=== PATIENT | male | born 1945 | race Caucasian/White ===

== ENCOUNTER → 2016-12-13 | Outpatient (CLI) | payer OTHER ==
[~2016-12-13] MED LIST: AMLO-110 PO; AMOX875T PO; COUGH SURUP PO; FAMO1TAB47 PO; LEVO50TA6 PO; MISCCAP80 PO; OMEP20TA PO; ONDA-63 PO; TPRSR100 PO; TRAM-10 PO
== END | disposition home or self-care (01) ==
LOC: C.LABSPEC 09:34
PROVIDERS: ATTEND Internal Medicine
DX: R19.7 Diarrhea, unspecified (principal)

== ENCOUNTER → 2017-04-10 | Outpatient (CLI) | payer OTHER ==
--- NOTE | 2017-04-10 12:14 | DIAGNOSTIC IMAGING REPORT ---
CHEST 2 VIEWS ROUTINE CLINICAL HISTORY: Hematemesis. COMPARISON STUDY: Chest CT April 29, 2016. FINDINGS: A right internal jugular [id number] is in place. There is no pneumothorax. Small bilateral pleural effusions are similar to CT of April 29, 2016. Abnormal right lower mediastinal contour is likely due to to the gastric pull-up following esophagectomy. Cardiomegaly is unchanged. There is no evidence of pulmonary edema. There is suspected mild right lower lung opacity. IMPRESSION: 1. No significant change in small bilateral pleural effusions. 2. Mild right lower lung opacity which may reflect atelectasis or an infectious process. Radiographic follow up is recommended. Electronically signed by: Latrell Tabares M.D. 04/10/2017 12:13 PM Dictated Date/Time: 04/10/2017 12:10 PM
[2017-04-10 13:41] LABS: BASO % 0.1 %; BASO ABS # 0.02 K/uL (0-0.2); COMPLETE YES; EOS % 0.6 %; HEMATOCRIT 41.4 % (42-52); IG% 0.4 %; LYMPH % 4.2 %; LYMPH ABS # 0.79 K/uL (1.2-3.4); MEAN CELL VOLUME 86.1 fL (80-100); MEAN CORPUSCULAR HEMOGLOBIN 28.5 pg (25-34); MEAN CORPUSCULAR HGB CONC 33.1 g/dl (32-36); MEAN PLATELET VOLUME 10.9 fL (7.4-10.4); MONO % 4.6 %; NEUT % 90.1 %; PLATELET COUNT 149 K/uL (130-400); RED BLOOD COUNT 4.81 M/uL (4.7-6.1); WHITE BLOOD COUNT 18.97 K/uL (4.8-10.8)
[2017-04-10 14:23] LABS: ALT/SGPT 17 U/L (12-78); AST/SGOT 13 U/L (15-37); BLOOD UREA NITROGEN 36 mg/dl (7-18); BUN/CREATININE RATIO 21.1 (10-20); CALCIUM 9.8 mg/dl (8.5-10.1); CARBON DIOXIDE 24 mmol/L (21-32); CHLORIDE 104 mmol/L (98-107); GLUCOSE 114 mg/dl (70-99); SODIUM 139 mmol/L (136-145)
[2017-04-10 14:25] LABS: ALB/GLOB RATIO 0.9 (0.9-2); ALKALINE PHOSPHATASE 84 U/L (45-117)
== END | disposition home or self-care (01) ==
LOC: C.RADBC 11:14
PROVIDERS: ATTEND Physician Assistant Medical
DX: R91.8 Other nonspecific abnormal finding of lung field (principal); K92.0 Hematemesis

== ENCOUNTER → 2017-04-11 | Outpatient (CLI) | payer OTHER ==
[2017-04-11 17:22] LABS: BASO % 0.2 %; BASO ABS # 0.02 K/uL (0-0.2); COMPLETE YES; HEMATOCRIT 40.1 % (42-52); IG% 0.4 %; LYMPH % 4.6 %; LYMPH ABS # 0.56 K/uL (1.2-3.4); MEAN CELL VOLUME 85.7 fL (80-100); MEAN CORPUSCULAR HGB CONC 32.7 g/dl (32-36); MEAN PLATELET VOLUME 11.4 fL (7.4-10.4); MONO % 7.3 %; NEUT % 84.5 %; PLATELET COUNT 154 K/uL (130-400); RED BLOOD COUNT 4.68 M/uL (4.7-6.1); WHITE BLOOD COUNT 12.29 K/uL (4.8-10.8)
[2017-04-11 17:44] LABS: BLOOD UREA NITROGEN 34 mg/dl (7-18); BUN/CREATININE RATIO 29.4 (10-20); CALCIUM 9.2 mg/dl (8.5-10.1); CARBON DIOXIDE 25 mmol/L (21-32); CHLORIDE 104 mmol/L (98-107); CREATININE 1.17 mg/dl (0.60-1.40); GLUCOSE 101 mg/dl (70-99); POTASSIUM 3.4 mmol/L (3.5-5.1); SODIUM 138 mmol/L (136-145)
== END | disposition home or self-care (01) ==
LOC: C.LABBC 14:14
PROVIDERS: ATTEND Physician Assistant Medical
DX: I10 Essential (primary) hypertension (principal); D72.829 Elevated white blood cell count, unspecified

== ENCOUNTER → 2017-05-10 | Outpatient (CLI) | payer OTHER ==
[2017-05-10 19:08] LABS: URINE APPEARANCE CLEAR (CLEAR); URINE BILIRUBIN NEG (NEG); URINE COLOR YELLOW; URINE EPITHELIAL CELL AUTO >30 /lpf (0-5); URINE NITRITE NEG (NEG); URINE PH 6.5 (4.5-7.5); URINE SPECIFIC GRAVITY 1.016 (1.000-1.030); UROBILINOGEN NEG (NEG); ZZUR CULT IF INDIC CLEAN CATCH YES
[2017-05-10 19:09] LABS: MANUAL MICROSCOPIC REQUIRED? NO; REVIEW REQ? YES
== END | disposition home or self-care (01) ==
LOC: C.LAB 18:52
PROVIDERS: ATTEND Internal Medicine
DX: R30.0 Dysuria (principal)

== ENCOUNTER → 2017-05-24 | Outpatient (CLI) | payer OTHER ==
[~2017-05-24] MED LIST changes: -AMLO-110 PO; +AMLO5TAB3 PO
[2017-05-24 12:16] LABS: BASO % 0.4 %; BASO ABS # 0.03 K/uL (0-0.2); EOS % 2.5 %; EOS ABS # 0.18 K/uL (0-0.5); HEMATOCRIT 41.9 % (42-52); HEMOGLOBIN 13.7 g/dL (14.0-18.0); IG# 0.01 K/uL (0.00-0.02); LYMPH % 6.4 %; LYMPH ABS # 0.46 K/uL (1.2-3.4); MEAN CELL VOLUME 84.8 fL (80-100); MEAN CORPUSCULAR HEMOGLOBIN 27.7 pg (25-34); MEAN CORPUSCULAR HGB CONC 32.7 g/dl (32-36); MEAN PLATELET VOLUME 10.7 fL (7.4-10.4); MONO % 10.3 %; MONO ABS # 0.74 K/uL (0.11-0.59); NEUT % 80.3 %; NEUT ABS # 5.76 K/uL (1.4-6.5); PLATELET COUNT 159 K/uL (130-400); RED CELL DISTRIBUTION WIDTH CV 15.3 % (11.5-14.5); RED CELL DISTRIBUTION WIDTH SD 47.6 fL (36.4-46.3); WHITE BLOOD COUNT 7.18 K/uL (4.8-10.8)
[2017-05-24 12:29] LABS: HEMOGLOBIN A1C 5.2 % (4.5-5.6)
[2017-05-24 16:40] LABS: ALBUMIN 3.4 gm/dl (3.4-5.0); ALT/SGPT 27 U/L (12-78); AST/SGOT 20 U/L (15-37); BLOOD UREA NITROGEN 20 mg/dl (7-18); CALCIUM 8.9 mg/dl (8.5-10.1); CARBON DIOXIDE 25 mmol/L (21-32); CHOLESTEROL 106 mg/dl (0-200); GLUCOSE 98 mg/dl (70-99); SODIUM 138 mmol/L (136-145)
[2017-05-24 16:53] LABS: ALKALINE PHOSPHATASE 98 U/L (45-117); LDL CHOLESTEROL CALCULATED 51 mg/dl; TOTAL PROTEIN 7.2 gm/dl (6.4-8.2)
--- NOTE | 2017-06-01 07:46 | CODING QUERY MEDICAL NECESSITY ---
CQSUPPORTING DIAGNOSIS NEEDED A supporting diagnosis is required for the test/procedure performed on this patient in order for us to be reimbursed by the patient's insurance. Please provide a supporting diagnosis for the following test/procedure listed below next to the test name along with your signature. *If there is no additional diagnosis for this patient that would support the following test/procedure please document that below next to the test/procedure. Test(s)/Procedure(s) that require a supporting diagnosis: DOS 05/24/17 BLOOD COUNTS TESTING GLYCATED HEMOGLOBIN TEST THYROID TEST LIPID TESTING Provider Signature: Date: Thank you Divina Randhawa Health Information Management Once completed, please kindly fax back to [phone] For questions please call [phone]
== END | disposition home or self-care (01) ==
LOC: C.LAB 11:15
PROVIDERS: ATTEND Internal Medicine
DX: M19.90 Unspecified osteoarthritis, unspecified site (principal); C15.9 Malignant neoplasm of esophagus, unspecified; R73.01 Impaired fasting glucose; E03.9 Hypothyroidism, unspecified

== ENCOUNTER → 2017-07-07 | Outpatient (CLI) | payer OTHER ==
[~2017-07-07] MED LIST changes: +AMLO-110 PO; -AMLO5TAB3 PO
== END | disposition home or self-care (01) ==
LOC: C.LAB 13:51
PROVIDERS: ATTEND Internal Medicine
DX: N40.1 Benign prostatic hyperplasia with lower urinary tract symptoms (principal); E03.9 Hypothyroidism, unspecified

== ENCOUNTER → 2017-07-12 | Outpatient (CLI) | payer OTHER ==
--- NOTE | 2017-07-16 12:33 | Sleep Study ---
Sleep Study Report Date of Service: 07/12/2017 Sleep Study Report CLINICAL DATA: The patient is a 71-year-old male who had severe sleep apnea diagnosed on a split study done 01/21/2014. His apnea-hypopnea index was 63.4. He was treated with nasal CPAP at 6 centimeters. He did well until he had surgery for esophageal cancer in August 2015. Since then he has been unable to wear his CPAP. He has lost 64 pounds. This study is being done to evaluate if he still has any significant sleep apnea. On the evening of 07/12/2017 a home sleep apnea test was performed using the [employer] type 3 monitor. RECORDING RESULTS: Total recording time was 10 hours. Patient estimated sleep time was 9.1 hours. RESPIRATORY DATA: Patient had a total of 22 respiratory events including 2 obstructive apneas, 1 mixed apnea, 1 central apnea, and 18 hypopneas. Hypopneas were scored according to the 4 percent desaturation rule. The maximum respiratory event was 37 seconds. The LEXY was only 2.4 which would be within the limits of normal. This reflects no significant sleep apnea. OXIMETRY DATA: The mean saturation for the night was 94 percent. The minimum saturation was 84 percent. There was only 2 minutes with saturations less than 89 percent. HEART RATE DATA: The minimum heart rate was 54 beats per minute. The mean heart rate was 69 beats per minute. SNORING DATA: Snoring was present throughout most of the test. IMPRESSIONS: 1. NO EVIDENCE OF SIGNIFICANT RESIDUAL SLEEP APNEA RECOMMENDATIONS: The patient has no significant sleep apnea and thus he does not require nasal CPAP at present. If he would ultimately gain a significant amount of weight and had symptoms, a repeat sleep study would be appropriate. Copies To 1: Chun Pritchard DO; Suman Tipton M.D.
== END | disposition home or self-care (01) ==
LOC: C.NEUR 08:44
PROVIDERS: ATTEND Internal Medicine Pulmonary Disease
DX: G47.33 Obstructive sleep apnea (adult) (pediatric) (principal)

== ENCOUNTER → 2017-07-26 | Outpatient (CLI) | payer OTHER ==
[2017-07-26 14:01] LABS: BLOOD UREA NITROGEN 15 mg/dl (7-18); CREATININE 1.04 mg/dl (0.60-1.40)
== END | disposition home or self-care (01) ==
LOC: C.LABBC 11:39
PROVIDERS: ATTEND Urology
DX: R97.20 Elevated prostate specific antigen [PSA] (principal)

== ENCOUNTER → 2017-08-01 | Outpatient (CLI) | payer OTHER ==
[~2017-08-01] MED LIST changes: +GADAVIST IV PRN
--- NOTE | 2017-08-01 14:05 | DIAGNOSTIC IMAGING REPORT ---
PROSTATE MRI COMBO CLINICAL HISTORY: Pelvic and serum PSA. Prostatomegaly. PSA 5.94 ng/mL. COMPARISON STUDY: No priors. TECHNIQUE: Multisequence, multiplanar MR imaging of the prostate was performed before and after the administration of intravenous contrast. Additional postprocessing was performed on a separate [employer] workstation by the radiologist for 3-D volumetric segmentation of the prostate and contouring of region(s) of interest (MANI) for targeting. IV contrast: 8.5 cc of Gadavist. FINDINGS: Prostate: The prostate measures 6.0 cm in transverse diameter. There is median lobe hypertrophy. (Dyna[employer] prostate boundary segmentation volume 70.35 mL). Severe changes of benign prostatic hyperplasia. Precontrast T1 weighted imaging demonstrates no evidence of intrinsic T1 hyperintensity to suggest hemorrhage. Suspicious lesion(s) described below: Lesion (DynaCAD MANI) 1: Location: Left transition zone at the apex. The lesion does not extend across the midline. Size: 12 mm (as measured on ADC for PZ lesion and T2WI for TZ lesion) T2W: 4. Circumscribed, homogeneous moderately hypointense lesion. No evidence of extraprostatic extension, seminal vesicle invasion, or neurovascular bundle involvement. DWI: 3. Focal mildly/moderately hypointense on ADC and isointense/mildly hyperintense on high b-value DWI. DCE: Positive. Focal enhancement corresponding to a suspicious finding, earlier or contemporaneous with adjacent normal tissue. PI-RADS: 3. The presence of clinically significant cancer is equivocal. Lesion (DynaCAD MANI) 2: Location: Left transition zone at the base to mid gland. The lesion does not extend across the midline. Size: 9 mm (as measured on ADC for PZ lesion and T2WI for TZ lesion) T2W: 4. Circumscribed, homogeneous moderately hypointense lesion. No evidence of extraprostatic extension, seminal vesicle invasion, or neurovascular bundle involvement. DWI: 3. Focal mildly/moderately hypointense on ADC and isointense/mildly hyperintense on high b-value DWI. DCE: Positive. Focal enhancement corresponding to a suspicious finding, earlier or contemporaneous with adjacent normal tissue. PI-RADS: 3. The presence of clinically significant cancer is equivocal. Lesion (DynaCAD MANI) 3: Location: Left posterior peripheral zone at the mid gland. The lesion does not extend across the midline. Size: 5 mm (as measured on ADC for PZ lesion and T2WI for TZ lesion) T2W: 4. Circumscribed, homogeneous moderately hypointense lesion. No evidence of extraprostatic extension, seminal vesicle invasion, or neurovascular bundle involvement. DWI: 3. Focal mildly/moderately hypointense on ADC and isointense/mildly hyperintense on high b-value DWI. DCE: Negative. No early enhancement. PI-RADS: 3. The presence of clinically significant cancer is equivocal. Seminal vesicles normal. Bladder: The bladder wall is thickened and trabeculated indication chronic outlet obstruction. Bowel: Visualized portion of the rectum normal. Peritoneum: There is trace free fluid in the pelvis. Lymph nodes: No lymphadenopathy in the visualized portion of the pelvis. Vasculature: Iliac vessels patent. Abdominal wall: Normal. Osseous structures: Normal bone marrow signal intensity. IMPRESSION: 1. There are 3 foci of concern identified as detailed above. PI-RADS: 3. The presence of clinically significant cancer is equivocal. These lesions have been segmented for targeted biopsy. 2. Benign prostatic hyperplasia. 3. Trace free fluid is seen in the pelvis. Electronically signed by: Christopher Rubin M.D. 08/01/2017 2:04 PM Dictated Date/Time: 08/01/2017 1:43 PM
== END | disposition home or self-care (01) ==
LOC: C.MRIBC 10:05
PROVIDERS: ATTEND Urology
DX: R97.20 Elevated prostate specific antigen [PSA] (principal); N42.9 Disorder of prostate, unspecified; N40.0 Benign prostatic hyperplasia without lower urinary tract symptoms

== ENCOUNTER → 2017-09-21 | Outpatient (CLI) | payer OTHER ==
[~2017-09-21] MED LIST changes: -GADAVIST IV PRN
== END | disposition home or self-care (01) ==
LOC: C.PATHSPEC 16:00
PROVIDERS: ATTEND Urology
DX: R97.20 Elevated prostate specific antigen [PSA] (principal)

== ENCOUNTER 2021-09-29 14:22 | Inpatient (IN) ==
--- NOTE | 2021-09-29 15:02 | Emergency Department Note ---
Impression & Plan Trouble swallowing, Esophageal cancer, Anemia ED Provider Note NAME: RICKY MOYA AGE: 76 SEX: M : 1945 ARRIVES VIA: Walk-In INFORMANT: Patient ED PROVIDER(S): Bj Hicks DO CHIEF COMPLAINT: trouble swallowing HPI: Patient is a 76-year-old male with esophageal cancer with previous surgery who presents the ER for inability to swallow or eat. He notes he was able to eat yesterday but nothing is going down. He is able to get liquids down but then they come back up. He has been following with gastroenterology and has been scoped with an EUS recently. He did well after his initial surgery for about 4 to 5 years and recently was found to have a new and worsening mass. No new change in voice. No headache or change in vision. No chest pain. Last bowel movement was about 7 days ago. Denies any dysuria urgency or frequency. No other exacerbating or remitting factors. Referred in by PCP. Currently getting chemo. ROS: See above HPI for pertinent positives & negatives. A total of 10 systems reviewed and were otherwise negative. PAST MEDICAL HISTORY:See Below PAST SURGICAL HISTORY:See Below FAMILY HISTORY:See Below SOCIAL HISTORY:See Below HOME MEDICATIONS:See Below ALLERGIES:See Below VITALS:See Below PHYSICAL EXAMINATION: GENERAL: Sitting up in bed, alert, soft-spoken, chronically ill-appearing EYE EXAM: normal conjunctiva. PERRL and EOM's grossly intact. OROPHARYNX: no exudate, no erythema, lips, buccal mucosa, and tongue normal and mucous membranes are moist NECK: supple, no nuchal rigidity, no adenopathy, non-tender CHEST: port in right chest LUNGS: Clear to auscultation. Normal chest wall mechanics HEART: no murmurs, S1 normal and S2 normal ABDOMEN: abdomen soft, non-tender, normo-active bowel sounds, no masses, no rebound or guarding. UPPER EXTREMITIES: upper extremities are grossly normal. LOWER EXTREMITIES: No pitting edema. NEURO EXAM: Normal sensorium, cranial nerves II-XII grossly intact, normal speech, no gross weakness of arms, no gross weakness of legs. MEDICAL DECISION MAKING: Patient is a 76-year-old male who presents ER for the boasting complaint. IV was established blood work was obtained. Labs show mild anemia 10.2. No significant leukocytosis. BMP along with LFTs bilirubin was unremarkable. Lipase was normal. Pro-Minesh was normal. COVID was negative. Discussed with Dr. Deandre Ceron who knows this patient well. Initially recommended no imaging. I did obtain a chest x-ray was unremarkable. After evaluation called and recommended CT of the chest and abdomen pelvis which was obtained and showed no acute pathology causing the obstruction. Will be scoped tomorrow. Discussed with the hospitalist. Triage Nursing notes reviewed. Limited review of prior medical records performed Vital Signs: reviewed and remarkable for no significant abnormalities Differential diagnosis: Differential diagnoses includes but is not limited to gastritis, peptic ulcer disease, GERD, gallbladder disease, pancreatitis, small bowel obstruction, acute coronary syndrome, pericarditis, ischemic bowel, irritable bowel disease, irritable bowel syndrome, appendicitis, diverticulitis, malignancy, hernia, urinary tract infection, torsion, [/ectopic (if female)], perforation, trauma, infectious. ER treatment provided: See below Diagnostics interpreted by me: ECG: none Cardiac Monitoring: An order was placed for continuous cardiac monitoring. The monitor shows a rate of 62 with sinus rhythm. Laboratory studies: As stated above and show below. Imaging studies: CT chest and abdomen pelvis Consultation(s): Discussed with Deandre Ceron recommended scope tomorrow. Discussed with the hospitalist for further evaluation Suman Hurt Procedures: none Critical Care: None Past Med/Surg History Medical History Ankylosing spondylitis Arthritis Chronic GERD Chronic osteoarthritis Elevated prostate specific antigen (PSA) Elevated prostate specific antigen (PSA) Enlarged prostate with lower urinary tract symptoms (LUTS) Esophageal cancer (04/07/15) Recurrence noted 06/02/2020 Fatigue Gastroparesis History of chemotherapy Oxaliplatin + Xeloda (started 05/25/15) History of radiation therapy 05/25/15 - 07/01/15 (Concurrent with chemo) received 5040cGy @ [facility] Hypertension Hypothyroidism Impaired fasting glucose Incomplete bladder emptying Obesity DEB (obstructive sleep apnea) Palpitations Port-A-Cath in place Right Restrictive lung disease Shortness of breath on exertion Sinus bradycardia Spinal stenosis Surgical History H/O colonoscopy H/O esophagectomy (09/09/15) Robotic-assisted minimally invasive Brayan Abram Esophagectomy (Kaushik Martins/Araceli) History of endoscopy (06/02/20) Upper EUS with FNA of pariesophageal lymph nodes History of hernia repair inguinal History of lymph node biopsy Family History Father , Passed age 67 of [place] Myocardial infarction Mother , Passed age 52 of unknown cancer mets Diabetes Brother , Passed age 85 of unknown Alzheimer disease Myocardial infarction Sister No problems noted. Sister , Passed in 50's of Lymphoma No problems noted. Sister , Passed in 90's of natural causes No problems noted. Daughter Colon cancer, Onset Age: 46 Currently being treated Denies family history of Ovarian cancer Prostate cancer Breast cancer Lung cancer Stroke Social History Smoking Status: Former smoker Tobacco Type: Cigarettes packs per day: 1; Years Smoked: 10; Second Hand Exposure: Yes (Father smoked in home); Hx Alcohol Use: No Hx Substance Use: No Preferred Language: Maltese Communication Ability: Effective Visual Impairment: Limited Hearing Ability: Hard of Hearing Artifacts Conservator Required: No Beliefs That Will Affect Care: None marital status: Current Living Situation: Spouse current occupational status: retired current occupation: Retired [employer] How many Children do You have: 1 Feels Safe at Home: Yes Childhood Exposure to Second-Hand Smoke: Yes (Father smoked in home ) caffeine: Yes (1-2 cups of coffee/day ) during the past year weight has: remained stable Dental Care, Regularly: No Physical Activity Frequency: Does not Exercise Seatbelt Use: always Sunscreen Use: Yes Assistive Devices: None Allergies Allergies Allergy/AdvReac Type Severity Reaction Status Date / Time No Known Allergies Allergy Unknown Verified 09/29/21 15:10 Home Meds Home Medications Medication Instructions Recorded Confirmed cyanocobalamin (vitamin B-12) 100 100 mcg PO DAILY tab 11/28/18 09/29/21 mcg tablet sucralfate 1 gram tablet (Carafate) 1 g PO Q6H PRN tab 12/08/20 09/29/21 pseudoephedrine-DM 30 mg-15 mg/5 5 ml PO Q6 PRN 01/19/21 09/29/21 mL oral liquid apixaban 5 mg tablet (Eliquis) 5 mg PO BID 03/30/21 09/29/21 tramadol 50 mg tablet 50 mg PO Q8H PRN 09/28/21 09/29/21 famotidine 40 mg tablet 40 mg PO HS 09/29/21 09/29/21 levothyroxine 75 mcg tablet 75 mcg PO DAILYBB 09/29/21 09/29/21 Results & Data (ED) Vital Signs Vital Signs - 24 hr 09/29/21 14:27 09/29/21 14:53 09/29/21 15:00 Temperature 36.8 C Temperature Source Temporal Artery Scan Pulse Rate 89 70 69 Pulse Rate [Apical] Pulse Rate from SpO2 Sensor 71 Pulse Rhythm Regular Pulse Strength Normal Respiratory Rate 20 25 H 19 Respiratory Effort / Characteristics Non-Labored Spontaneous Respiratory Depth Normal Respiratory Pattern Regular Blood Pressure 153/85 H 135/88 Blood Pressure [Left Arm] Blood Pressure Mean 107 103 Blood Pressure Mean [Left Arm] Blood Pressure Position Sitting Pulse Oximetry 94 96 Oxygen Delivery Method Room Air Sepsis Recent Fever Within 48 Hours No Sepsis New/Unexplained Change in Mental Status N/A Sepsis Action Taken by Nursing No Action Required 09/29/21 15:30 09/29/21 16:00 09/29/21 16:30 Temperature Temperature Source Pulse Rate 69 65 68 Pulse Rate [Apical] Pulse Rate from SpO2 Sensor 71 65 68 Pulse Rhythm Pulse Strength Respiratory Rate 23 15 29 H Respiratory Effort / Characteristics Respiratory Depth Respiratory Pattern Blood Pressure Blood Pressure [Left Arm] Blood Pressure Mean Blood Pressure Mean [Left Arm] Blood Pressure Position Pulse Oximetry 98 96 98 Oxygen Delivery Method Sepsis Recent Fever Within 48 Hours Sepsis New/Unexplained Change in Mental Status Sepsis Action Taken by Nursing 09/29/21 18:02 Temperature Temperature Source Pulse Rate Pulse Rate [Apical] 68 Pulse Rate from SpO2 Sensor Pulse Rhythm Pulse Strength Respiratory Rate 16 Respiratory Effort / Characteristics Non-Labored Respiratory Depth Normal Respiratory Pattern Blood Pressure Blood Pressure [Left Arm] 133/73 Blood Pressure Mean Blood Pressure Mean [Left Arm] 93 Blood Pressure Position Pulse Oximetry 95 Oxygen Delivery Method Room Air Sepsis Recent Fever Within 48 Hours Sepsis New/Unexplained Change in Mental Status Sepsis Action Taken by Nursing Laboratory Data Result diagrams: 09/29/21 15:13 09/29/21 15:13 Lab Results 09/29/21 09/29/21 09/29/21 Range/Units 15:13 15:13 15:13 WBC 6.82 (4.8-10.8) K/uL RBC 3.43 L (4.7-6.1) M/uL Hgb 10.2 L (14.0-18.0) g/dL Hct 31.6 L (42-52) % MCV 92.1 (80-100) fL MCH 29.7 (25-34) pg MCHC 32.3 (32-36) g/dL RDW Std Deviation 53.3 H (36.4-46.3) fL RDW Coeff of Camilo 15.8 H (11.5-14.5) % Plt Count 245 (130-400) K/uL MPV 9.8 (7.4-10.4) fL Immature Gran % (Auto) 0.6 % Neut % (Auto) 81.3 % Lymph % (Auto) 12.0 % Kaufman % (Auto) 6.0 % Eos % (Auto) 0.1 % Baso % (Auto) 0.0 % Neut # (Auto) 5.54 (1.4-6.5) K/uL Lymph # (Auto) 0.82 L (1.2-3.4) K/uL Kaufman # (Auto) 0.41 (0.11-0.59) K/uL Eos # (Auto) 0.01 (0-0.5) K/uL Baso # (Auto) 0.00 (0-0.2) K/uL Immature Gran # (Auto) 0.04 H (0.00-0.02) K/uL Sodium 138 (136-145) mmol/L Potassium 3.9 (3.5-5.1) mmol/L Chloride 104 (98-107) mmol/L Carbon Dioxide 27 (21-32) mmol/L Anion Gap 7 (3-11) BUN 23 (6-23) mg/dl Creatinine 1.08 (0.6-1.4) mg/dl Est Cr Clr Drug Dosing 58.0 ml/min Est GFR ( Amer) 76.3 ml/min Est GFR (Non-Af Amer) 65.9 ml/min BUN/Creatinine Ratio 21.3 H (10-20) Glucose 104 H (70-99(Fasting)) mg/dl Calcium 9.2 (8.5-10.1) mg/dl Total Bilirubin 0.8 (0.2-1.0) mg/dl AST 11 L (13-39) U/L ALT 9 (7-52) U/L Alkaline Phosphatase 55 (34-104) U/L Troponin I High Sens (0-20) pg/ml Total Protein 5.9 L (6.0-8.3) gm/dl Albumin 3.3 L (3.4-5.0) gm/dl Globulin 2.6 (2.5-4.0) gm/dl Albumin/Globulin Ratio 1.3 (0.9-2) Lipase 7 L (11-82) U/L Procalcitonin < 0.05 (0-0.5) ng/ml SARS-CoV-2, RNA, NAAT (NEGATIVE) 09/29/21 09/29/21 Range/Units 15:13 15:22 WBC (4.8-10.8) K/uL RBC (4.7-6.1) M/uL Hgb (14.0-18.0) g/dL Hct (42-52) % MCV (80-100) fL MCH (25-34) pg MCHC (32-36) g/dL RDW Std Deviation (36.4-46.3) fL RDW Coeff of Camilo (11.5-14.5) % Plt Count (130-400) K/uL MPV (7.4-10.4) fL Immature Gran % (Auto) % Neut % (Auto) % Lymph % (Auto) % Kaufman % (Auto) % Eos % (Auto) % Baso % (Auto) % Neut # (Auto) (1.4-6.5) K/uL Lymph # (Auto) (1.2-3.4) K/uL Kaufman # (Auto) (0.11-0.59) K/uL Eos # (Auto) (0-0.5) K/uL Baso # (Auto) (0-0.2) K/uL Immature Gran # (Auto) (0.00-0.02) K/uL Sodium (136-145) mmol/L Potassium (3.5-5.1) mmol/L Chloride (98-107) mmol/L Carbon Dioxide (21-32) mmol/L Anion Gap (3-11) BUN (6-23) mg/dl Creatinine (0.6-1.4) mg/dl Est Cr Clr Drug Dosing ml/min Est GFR ( Amer) ml/min Est GFR (Non-Af Amer) ml/min BUN/Creatinine Ratio (10-20) Glucose (70-99(Fasting)) mg/dl Calcium (8.5-10.1) mg/dl Total Bilirubin (0.2-1.0) mg/dl AST (13-39) U/L ALT (7-52) U/L Alkaline Phosphatase (34-104) U/L Troponin I High Sens 29.1 H (0-20) pg/ml Total Protein (6.0-8.3) gm/dl Albumin (3.4-5.0) gm/dl Globulin (2.5-4.0) gm/dl Albumin/Globulin Ratio (0.9-2) Lipase (11-82) U/L Procalcitonin (0-0.5) ng/ml SARS-CoV-2, RNA, NAAT NEGATIVE (NEGATIVE) Administered Medications Discontinued Medications Ampicillin Sodium/Sulbactam Sodium 1,500 mg/ Sodium Chloride 104 mls @ 200 mls/hr IV NOW STA; Protocol Stop: 09/29/21 17:04 Last Admin: 09/29/21 18:01 Dose: Not Given Documented by: [id number] Ampicillin Sodium/Sulbactam Sodium 3,000 mg/ Sodium Chloride 108 mls @ 216 mls/hr IV NOW ONE Stop: 09/29/21 17:29 Last Admin: 09/29/21 17:30 Dose: 216 mls/hr Documented by: [id number] Pantoprazole Sodium 40 mg/ (Syringe) 10 mls @ 5 mls/min IV NOW ONE Stop: 09/29/21 17:01 Last Admin: 09/29/21 17:30 Dose: 5 mls/min Documented by: [id number] Ioversol (Optiray 320 100ml) 93 ml IV ONCE ONE Stop: 09/29/21 16:38 Last Admin: 09/29/21 16:40 Dose: 93 ml Documented by: [id number] Imaging Data Radiologist's Impression: Chest X-Ray 09/29/21 15:24 XR chest 1V portable CLINICAL HISTORY: cant swallow TECHNIQUE: Single frontal radiograph of the chest was obtained. Comparison: Comparison is made to chest one view 09/28/2021 FINDINGS: Dual lead pacemaker is seen. Right portacatheter is stable. Cardiomegaly is noted. Faint airspace opa[place] is in the right lower lung. There is a small right pleural effusion. IMPRESSION: Faint airspace opacity in the right lower lung may represent atelectasis, pneumonia, and/or aspiration. Redemonstration of small right pleural effusion. ACT 112: Negative or not required by law. Electronically signed by: Deven Jaime M.D. 09/29/2021 4:00 PM Abdomen/Pelvis CT 09/29/21 16:14 CT SCAN OF THE CHEST, ABDOMEN, AND PELVIS WITH IV CONTRAST CLINICAL HISTORY: Dysphagia. Generalized abdominal pain. Esophageal cancer. Constipation. COMPARISON STUDY: CT scan of the chest, abdomen, and pelvis dated 05/04/2020. PET/CT dated 05/27/2020. TECHNIQUE: Following the IV administration of 93 of Optiray 320, CT scan of the chest, abdomen, and pelvis was performed from the thoracic inlet to the proximal femora. Images are reviewed in the axial, sagittal, and coronal planes. IV contr ast was administered without complication. A dose lowering technique was utilized adhering to the principles of ALARA. CT DOSE: 768.79 mGy.cm FINDINGS: CHEST: Thyroid: Imaged portions of the thyroid gland are normal in size and attenuation. Thoracic aorta: There is mild atherosclerotic calcification of the thoracic aorta, which is normal in caliber and demonstrates standard 3-vessel arch anatomy. No dissection is seen. Pulmonary vasculature: The pulmonary trunk is normal in caliber. There are no filling defects identified in the central pulmonary vessels to indicate pulmonary embolus. Note that this examination was not protocoled for evaluation of the pulmonary arteries. Heart: A right internal jugular central venous infusion port is in place. A cardiac pacemaker is present in the left chest wall. The heart is mildly enlarged noting a small pericardial effusion. There are coronary artery calcifications. Esophagus: There is postoperative change from esophagectomy with gastric pull- through procedure. There is nonspecific soft tissue thickening at the gastroesophageal anastomosis just below the thoracic inlet on image #46. There is minimal surrounding infiltration. Lungs and pleural spaces: There are small left and small to moderate right pleural effusions with associated atelectasis. The right pleural effusion appears to be at least partially loculated. No airspace consolidation is identified typical for pneumonia. There are punctate calcified granulomas. A 12 mm nodular density in the right middle lobe seen on image #168 is indeterminant and may be related to atelectasis. Mediastinum: Mildly enlarged mediastinal lymph nodes measure up to 10 mm in short axis. There is no pneumomediastinum. Cassidy: Clear. Axillae: There is no axillary lymphadenopathy. Bony thorax: The skeletal structures are osteopenic. Degenerative change and hyperkyphosis is noted in the thoracic spine. No lytic or blastic lesions are identified. Arthritic change is noted in the shoulders. ABDOMEN AND PELVIS: Liver: The contrast-enhanced liver is normal in size, contour, and attenuation. There is no intrahepatic biliary ductal dilatation. The hepatic veins and portal veins are patent. A 3.4 cm simple cyst is seen in the left lobe. Additional subcentimeter hepatic hypodensities also likely represent cysts but are too small for definitive characterization. These are unchanged from 2020. Gallbladder: Unremarkable. Spleen: Normal in size and attenuation. Numerous (greater than 10) hypodense splenic lesions measure up to 1.9 cm. These have been present dating back to 2020. Pancreas: Moderately atrophic and grossly unremarkable. Adrenal glands: Unremarkable. Kidneys: The contrast enhanced kidneys are atrophic and without hydronephrosis. The kidneys enhance symmetrically. There is a 2.1 cm indeterminant and potentially enhancing lesion in the posterior interpolar right kidney seen on image #102. This is increased in size dating back to 2020. A 1.7 cm ind eterminant lesion in the right upper pole on image #70 has also modestly increased in size. Additional subcentimeter renal cortical hypodensities may represent cysts but are too small for definitive characterization. Abdominal vasculature: The abdominal aorta is normal in course and caliber noting moderate atherosclerotic calcification. Bowel: There is no bowel obstruction. Mild fecal retention is seen throughout the colon. The appendix is well-visualized and normal. Peritoneum: No intraperitoneal free air is identified. Trace free fluid is noted in the pelvis. There is a fat-containing umbilical hernia Lymphadenopathy: None. Pelvic viscera: The prostate gland is enlarged and heterogeneous noting median lobe hypertrophy. The bladder wall is thickened and trabeculated indicating chronic outlet obstruction. Skeletal structures: The skeletal structures are osteopenic. There is moderate to advanced lumbosacral spondylosis. No lytic or blastic lesions are seen. IMPRESSION: 1. There is postoperative change from esophagectomy and gastric pull-through procedure. 2. There is nonspecific soft tissue thickening seen at the gastroesophageal anas tomosis just below the thoracic inlet with minimal surrounding infiltration. Soft tissue thickening is similar to prior studies, and the mild infiltration appears somewhat increased from previous. Clinical correlation will required. This could be further evaluated with endoscopy if clinically warranted. 3. Cardiomegaly and small pleural effusions as above. 4. There is no airspace consolidation typical for pneumonia. 5. There is an indeterminant 12 mm nodular density in the right middle lobe which may be related to adjacent atelectasis. This was not seen on prior examinations. A 3-4 month follow-up chest CT is recommended for reassessment. 6. No acute infectious or inflammatory findings are seen in the abdomen or pelvis. 7. There are 2 indeterminant cortical lesions in the right kidney which may show postcontrast enhancement. This could represent complex cysts, with renal neoplasms not excluded. These lesions have increased in size as compared to 05/04/2020. A dedicated renal protocol CT or MRI is recommended for further characterization. 8. Trace free fluid seen in the pelvis. 9. Mildly enlarged mediastinal lymph nodes are pathologically indeterminant and similar to prior studies. 10. There is no definite evidence of metastatic disease in the chest, abdomen, or pelvis. 11. Additional findings as above. ACT 112: Positive. There are findings on this exam that require communication between the performing entity and the patient following Patient Test Result Information Act ([place] Act 112) guidelines. Electronically signed by: Christopher Rubin M.D. 09/29/2021 5:[address] 09/29/21 16:14 CT SCAN OF THE CHEST, ABDOMEN, AND PELVIS WITH IV CONTRAST CLINICAL HISTORY: Dysphagia. Generalized abdominal pain. Esophageal cancer. Constipation. COMPARISON STUDY: CT scan of the chest, abdomen, and pelvis dated 05/04/2020. PET/CT dated 05/27/2020. TECHNIQUE: Following the IV administration of 93 of Optiray 320, CT scan of the chest, abdomen, and pelvis was performed from the thoracic inlet to the proximal femora. Images are reviewed in the axial, sagittal, and coronal planes. IV contrast was administered without complication. A dose lowering technique was utilized adhering to the principles of ALARA. CT DOSE: 768.79 mGy.cm FINDINGS: CHEST: Thyroid: Imaged portions of the thyroid gland are normal in size and attenuation. Thoracic aorta: There is mild atherosclerotic calcification of the thoracic aorta, which is normal in caliber and demonstrates standard 3-vessel arch anatomy. No dissection is seen. Pulmonary vasculature: The pulmonary trunk is normal in caliber. There are no filling defects identified in the central pulmonary vessels to indicate pulmonary embolus. Note that this examination was not protocoled for evaluation of the pulmonary arteries. Heart: A right internal jugular central venous infusion port is in place. A cardiac pacemaker is present in the left chest wall. The heart is mildly enl arged noting a small pericardial effusion. There are coronary artery calcifications. Esophagus: There is postoperative change from esophagectomy with gastric pull- through procedure. There is nonspecific soft tissue thickening at the gastroesophageal anastomosis just below the thoracic inlet on image #46. There is minimal surrounding infiltration. Lungs and pleural spaces: There are small left and small to moderate right pleural effusions with associated atelectasis. The right pleural effusion appears to be at least partially loculated. No airspace consolidation is identified typical for pneumonia. There are punctate calcified granulomas. A 12 mm nodular density in the right middle lobe seen on image #168 is indeterminant and may be related to atelectasis. Mediastinum: Mildly enlarged mediastinal lymph nodes measure up to 10 mm in short axis. There is no pneumomediastinum. Cassdiy: Clear. Axillae: There is no axillary lymphadenopathy. Bony thorax: The skeletal structures are osteopenic. Degenerative change and hyperkyphosis is noted in the thoracic spine. No lytic or blastic lesions are identified. Arthritic change is noted in the shoulders. ABDOMEN AND PELVIS: Liver: The contrast-enhanced liver is normal in size, contour, and attenuation. There is no intrahepatic biliary ductal dilatation. The hepatic veins and portal veins are patent. A 3.4 cm simple cyst is seen in the left lobe. Additional subcentimeter hepatic hypodensities also likely represent cysts but are too small for definitive characterization. These are unchanged from 2020. Gallbladder: Unremarkable. Spleen: Normal in size and attenuation. Numerous (greater than 10) hypodense splenic lesions measure up to 1.9 cm. These have been present dating back to 2019. Pancreas: Moderately atrophic and grossly unremarkable. Adrenal glands: Unremarkable. Kidneys: The contrast enhanced kidneys are atrophic and without hydronephrosis. The kidneys enhance symmetrically. There is a 2.1 cm indeterminant and potentially enhancing lesion in the posterior interpolar right kidney seen on image #102. This is increased in size dating back to 2019. A 1.7 cm indeterminant lesion in the right upper pole on image #70 has also modestly increased in size. Additional subcentimeter renal cortical hypodensities may represent cysts but are too small for definitive characterization. Abdominal vasculature: The abdominal aorta is normal in course and caliber noting moderate atherosclerotic calcification. Bowel: There is no bowel obstruction. Mild fecal retention is seen throughout the colon. The appendix is well-visualized and normal. Peritoneum: No intraperitoneal free air is identified. Trace free fluid is noted in the pelvis. There is a fat-containing umbilical hernia Lymphadenopathy: None. Pelvic viscera: The prostate gland is enlarged and heterogeneous noting median lobe hypertrophy. The bladder wall is thickened and trabeculated indicating chronic outlet obstruction. Skeletal structures: The skeletal structures are osteopenic. There is moderate to advanced lumbosacral spondylosis. No lytic or blastic lesions are seen. IMPRESSION: 1. There is postoperative change from esophagectomy and gastric pull-through procedure. 2. There is nonspecific soft tissue thickening seen at the gastroesophageal anastomosis just below the thoracic inlet with minimal surrounding infiltration. Soft tissue thickening is similar to prior studies, and the mild infiltration appears somewhat increased from previous. Clinical correlation will required. This could be further evaluated with endoscopy if clinically warranted. 3. Cardiomegaly and small pleural effusions as above. 4. There is no airspace consolidation typical for pneumonia. 5. There is an indeterminant 12 mm nodular density in the right middle lobe which may be related to adjacent atelectasis. This was not seen on prior examinations. A 3-4 month follow-up chest CT is recommended for reassessment. 6. No acute infectious or inflammatory findings are seen in the abdomen or pelvis. 7. There are 2 indeterminant cortical lesions in the right kidney which may show postcontrast enhancement. This could represent complex cysts, with renal n eoplasms not excluded. These lesions have increased in size as compared to 05/04/2020. A dedicated renal protocol CT or MRI is recommended for further characterization. 8. Trace free fluid seen in the pelvis. 9. Mildly enlarged mediastinal lymph nodes are pathologically indeterminant and similar to prior studies. 10. There is no definite evidence of metastatic disease in the chest, abdomen, or pelvis. 11. Additional findings as above. ACT 112: Positive. There are findings on this exam that require communication between the performing entity and the patient following Patient Test Result Information Act ([place] Act 112) guidelines. Electronically signed by: Christopher Rubin M.D. 09/29/2021 5:10 PM Discharge Plan Visit Data Chief Complaint: Referred by Doctor Stated Complaint: DR BLAKE REFR'D, CAN'T SWALLOW OR TALK ED Provider: Bj Hicks Discharge Problem: Trouble swallowing, Esophageal cancer, Anemia Forms Stand Alone Forms: My [employer] Prescriptions Prescriptions: No Action cyanocobalamin (vitamin B-12) 100 mcg tablet 100 mcg PO DAILY RF: 0 tramadol 50 mg tablet 50 mg PO Q8H PRN (Reason: Pain) RF: 0 Eliquis 5 mg tablet 5 mg PO BID RF: 0 sucralfate [Carafate] 1 gram tablet 1 g PO Q6H PRN (Reason: Gi Upset) RF: 0 pseudoephedrine-DM 30-15 mg/5 mL Liquid 5 ml PO Q6 PRN (Reason: Cough) RF: 0 famotidine 40 mg tablet 40 mg PO HS RF: 0 levothyroxine 75 mcg tablet 75 mcg PO DAILYBB RF: 0 Referrals Referrals: Suman Tipton MD [Primary Care Provider] - Discharge Problem: Trouble swallowing Qualifiers: Dysphagia type: unspecified Qualified Code(s): R13.10 - Dysphagia, unspecified Esophageal cancer Qualifiers: Malignant neoplasm of esophagus location: unspecified location Qualified Code(s): C15.9 - Malignant neoplasm of esophagus, unspecified Anemia Qualifiers: Anemia type: unspecified type Qualified Code(s): D64.9 - Anemia, unspecified
[2021-09-29 15:36] LABS: Eosinophils # (auto) 0.01 K/uL (0-0.5); Eosinophils % (auto) 0.1 %; Hematocrit (blood only) 31.6 % (42-52); Hemoglobin 10.2 g/dL (14.0-18.0); Immature Granulocytes # (auto) 0.04 K/uL (0.00-0.02); Immature Granulocytes % (auto) 0.6 %; Lymphocytes # (auto) 0.82 K/uL (1.2-3.4); Mean Corpuscular Hemoglobin 29.7 pg (25-34); Mean Corpuscular Hgb Conc 32.3 g/dL (32-36); Mean Corpuscular Volume 92.1 fL (80-100); Mean Platelet Volume 9.8 fL (7.4-10.4); Monocytes # (auto) 0.41 K/uL (0.11-0.59); Neutrophils # (auto) 5.54 K/uL (1.4-6.5); Neutrophils % (auto) 81.3 %; Platelet Count 245 K/uL (130-400); RDW Coefficient of Variation 15.8 % (11.5-14.5); RDW Standard Deviation 53.3 fL (36.4-46.3); Red Blood Count 3.43 M/uL (4.7-6.1); White Blood Count 6.82 K/uL (4.8-10.8)
[2021-09-29 15:49] LABS: Albumin Globulin Ratio 1.3 (0.9-2); Albumin Level 3.3 gm/dl (3.4-5.0); BUN Creatinine Ratio 21.3 (10-20); Bilirubin,Total 0.8 mg/dl (0.2-1.0); Calcium 9.2 mg/dl (8.5-10.1); Est GFR (African American) 76.3 ml/min; Est GFR (Non-African American) 65.9 ml/min; Globulin 2.6 gm/dl (2.5-4.0); Potassium 3.9 mmol/L (3.5-5.1); Total Protein 5.9 gm/dl (6.0-8.3)
--- NOTE | 2021-09-29 16:02 | XRay Report ---
XR chest 1V portable CLINICAL HISTORY: cant swallow TECHNIQUE: Single frontal radiograph of the chest was obtained. Comparison: Comparison is made to chest one view 09/28/2021 FINDINGS: Dual lead pacemaker is seen. Right portacatheter is stable. Cardiomegaly is noted. Faint airspace opa [place] is in the right lower lung. There is a small right pleural effusion. IMPRESSION: Faint airspace opacity in the right lower lung may represent atelectasis, pneumonia, and/or aspiratio n. Redemonstration of small right pleural effusion. ACT 112: Negative or not required by law. Electronically signed by: Deven Jaime M.D. 09/29/2021 4:00 PM
--- NOTE | 2021-09-29 16:06 | History & Physical Report ---
Date of Service September 29, 2021 Assessment & Plan (1) Dysphagia: Plan: - Began last night, when patient had soup which he regurgitated. Attempted to eat toast, Jell-O, and water this morning, all quickly regurgitated. Does not believe he choked or aspirated. - [facility] GI consulted, plan to keep patient n.p.o. and EGD in AM. - CT A/P ordered to r/o obstruction--no bowel obstruction, mild fecal retention noted. No metastatic dz identified, no inflammatory or infectious changes - IV Protonix 40 mg twice daily. (2) Chest pain: Plan: - Reported to me that yesterday during PT, while doing left lifts he experienced central chest pain that radiated to his jaw that went away 15 to 20 minutes later with rest. - Currently without any chest pain. - Will order stat EKG, stat high sensitive troponin--> 29.1. Repeat in 2 hours. - History of pericardial effusion, had thoracotomy at [facility] 2 weeks ago. Was scheduled to have an echo at the end of this week, will order while inpatient. (3) Esophageal cancer: Plan: - S/P robotic assisted and open esophagectomy 09/09/2015. history of local recurrence x2. Now back on chemotherapy, FOLFIRI regimen q2wks - Patient has tumor pressing on vocal cords, has lost voice and ability to cough several months ago. - Takes OTC medication for management of secretions. - Chemo [id number], last treatment was yesterday, which runs until tomorrow. Consult [facility] oncology for management. (4) Constipation: Plan: - Reports last BM was one week ago, CT a/p showed mild fecal retention. - Will order enema for this evening. (5) Aspiration into respiratory tract: Plan: - When comparing CXR done today against outpt CXR yesterday-- ? progression of developing consolidation in RLL--with increased secretions, 4 episodes of regurgitation,initial decision to cover for aspiration pneumonia with Unasyn. CT cjest ordered, did not show consolidation consistent with a pneumonia. Therefore, will stop abx. (6) Hypertension: Plan: - No longer taking medication for this. (7) Paroxysmal atrial fibrillation: Plan: - s/p permanent pacemaker 12/2020 due to concurrent SSS + a fib. - Hold Eliquis for EGD tomorrow. (8) Hypothyroidism: Plan: - N.p.o., continue levothyroxine when tolerating p.o. intake. (9) Chronic GERD: Plan: - On Pepcid at home, will be on IV PPI per GI. (10) Ankylosing spondylitis: Plan: - Widespread arthralgias. Clinically stable. No new concerns. (11) B12 deficiency: Plan: - Continue B12 supplementation when tolerating p.o. intake. (12) Abnormal CT scan, chest: Plan: - Indeterminant 12 mm nodular density in the right middle lobe which may be related to adjacent atelectasis. This was not seen on prior examinations. A 3-4 month follow-up chest CT is recommended for reassessment. (13) Abnormal CT scan, kidney: Plan: - There are 2 indeterminant cortical lesions in the right kidney which may show postcontrast enhancement. This could represent complex cysts, with renal neoplasms not excluded. These lesions have increased in size as compared to 05/04/2020. - Renal protocol CT tomorrow for further characterization. Plan: - Admit to med/tele. - SCDs, holding Eliquis now for planned EGD tomorrow. - Full code. History of Present Illness Primary Care Provider: Suman Tipton MD Mr. Solano is a 76-year-old male with past medical history of esophageal cancer s/p esophagectomy in 2015 with radiation w/ recurrence in 2020, hypertension, GERD, hypothyroidism, sick sinus syndrome and A. fib s/p pacemaker in 2020, ankylosing spondylitis, and recent pericardial effusion hospitalized at [facility] [place] 09/16 - 09/18 who presents today with worsening dysphagia. Last night, patient had soup but regurgitated immediately. This morning, he had toast, which he also regurgitated. He tried Jell-O and water, however this was regurgitated as well. This prompted his presentation to ED for further evaluation. He has otherwise been in his normal state of health, reports he made more phlegm yesterday, but has resolved today. Due to tumor burden, unable to cough to clear phlegm. No fever or chills, SOB at rest, worsening chronic dyspnea on exertion, cough, palpitations, abdominal pain, nausea, vomiting outside the setting of food intake, dysuria, hematuria, increased frequency, diarrhea. Also reports constipation with last BM on week ago and a 15 minute episode of chest pain with radiation to jaw yesterday while doing leg lifts with PT. States this does occasionally happen to him, always resolves with rest. Allergies Allergy/AdvReac Type Severity Reaction Status Date / Time No Known Allergies Allergy Unknown Verified 09/29/21 15:10 Home Medications Medication Instructions Recorded Confirmed Type cyanocobalamin (vitamin B-12) 100 100 mcg PO DAILY tab 11/28/18 09/29/21 History mcg tablet sucralfate 1 gram tablet (Carafate) 1 g PO Q6H PRN tab 12/08/20 09/29/21 History pseudoephedrine-DM 30 mg-15 mg/5 5 ml PO Q6 PRN 01/19/21 09/29/21 History mL oral liquid apixaban 5 mg tablet (Eliquis) 5 mg PO BID 03/30/21 09/29/21 History tramadol 50 mg tablet 50 mg PO Q8H PRN 09/28/21 09/29/21 History famotidine 40 mg tablet 40 mg PO HS 09/29/21 09/29/21 History levothyroxine 75 mcg tablet 75 mcg PO DAILYBB 09/29/21 09/29/21 History Past Med/Surg History Medical History Ankylosing spondylitis Arthritis Chronic GERD Chronic osteoarthritis Elevated prostate specific antigen (PSA) Elevated prostate specific antigen (PSA) Enlarged prostate with lower urinary tract symptoms (LUTS) Esophageal cancer (04/07/15) Recurrence noted 06/02/2020 Fatigue Gastroparesis History of chemotherapy Oxaliplatin + Xeloda (started 05/25/15) History of radiation therapy 05/25/15 - 07/01/15 (Concurrent with chemo) received 5040cGy @ [facility] Hypertension Hypothyroidism Impaired fasting glucose Incomplete bladder emptying Obesity DEB (obstructive sleep apnea) Palpitations Port-A-Cath in place Right Restrictive lung disease Shortness of breath on exertion Sinus bradycardia Spinal stenosis Surgical History H/O colonoscopy H/O esophagectomy (09/09/15) Robotic-assisted minimally invasive Brayan Abram Esophagectomy (Kaushik Martins/Araceli) History of endoscopy (06/02/20) Upper EUS with FNA of pariesophageal lymph nodes History of hernia repair inguinal History of lymph node biopsy Family History Father , Passed age 67 of [place] Myocardial infarction Mother , Passed age 52 of unknown cancer mets Diabetes Brother , Passed age 85 of unknown Alzheimer disease Myocardial infarction Sister No problems noted. Sister , Passed in 50's of Lymphoma No problems noted. Sister , Passed in 90's of natural causes No problems noted. Daughter Colon cancer, Onset Age: 46 Currently being treated Denies family history of Ovarian cancer Prostate cancer Breast cancer Lung cancer Stroke Social History Smoking Status: Never smoker Tobacco Type: Cigarettes packs per day: 1; Years Smoked: 10; Second Hand Exposure: Yes (Father smoked in home); Hx Alcohol Use: No Hx Substance Use: No Preferred Language: Frisian Communication Ability: Effective Communication Ability Comment: soft quiet voice Visual Impairment: Limited Hearing Ability: Hard of Hearing Bonsai Culturist Required: No Beliefs That Will Affect Care: None marital status: Current Living Situation: Spouse current occupational status: retired current occupation: Retired [employer] How many Children do You have: 1 Feels Safe at Home: Yes Safety Concerns: Feels Safe At This Time Childhood Exposure to Second-Hand Smoke: Yes (Father smoked in home ) caffeine: Yes (1-2 cups of coffee/day ) during the past year weight has: remained stable Dental Care, Regularly: No Physical Activity Frequency: Does not Exercise Seatbelt Use: always Sunscreen Use: Yes Assistive Devices: None Review of Systems Review of Systems: Constitutional: No fever/chills, weakness, fatigue, myalgias, anorexia, night sweats Eyes: No diplopia, no worsening or blurred vision ENT: normal hearing, no trouble swallowing Respiratory: increased sputum production x 1 day; no cough, dyspnea at rest, or change in baseline on exertion Cardiovascular: 15-20 minutes of central CP yesterday with radiation to jaw; no tightness or palpitations Abdomen: immediate regurgitation of food and liquid since last evening, last BM 1 week ago; no pain, nausea, vomiting : Denies dysuria, hematuria, increased urgency/frequency, urinary retention Musculoskeletal: unchanged RLE swelling; No joint pain, calf pain Neurologic: No weakness, numbness/tingling, or balance problems Psychiatric: No anxiety or depression Skin: No rash or itch Physical Exam Physical Exam: General: awake, alert, no apparent distress, on RA, soft voice Head: Normocephalic, atraumatic ENT: PERRL, EOMI, no pharyngeal exudate, mucous membranes moist, no mass or airway obstruction seen Chest: Clear to auscultation, on room air, no adventitious breath sounds Cardiac: Regular rate and rhythm, no murmur, no JVD, normal peripheral pulses, good capillary refill Abdominal: NABS x 4 quadrants, soft, nontender to palpation, no rebound, guarding or tenderness Extremities: R> L lE edema, per pt this is chronic for many years and unchanged; otherwise normal inspection, calfs nontender to palpation Psych: Normal mood and affect Neuro: AAO x 3, strength intact bilaterally and rated 5/5, no motor deficits, speech is clear, no peripheral sensory deficits Skin: no rash or erythema Results & Data Results & Data ([facility]) Vital Signs (Past 12 Hours) Vital Signs Temp Pulse Resp BP Pulse Ox 09/29/21 14:27 36.8 C 89 20 153/85 H 94 Laboratory Results Abnormal lab results 09/29/21 09/29/21 Range/Units 15:13 15:13 RBC 3.43 L (4.7-6.1) M/uL Hgb 10.2 L (14.0-18.0) g/dL Hct 31.6 L (42-52) % RDW Std Deviation 53.3 H (36.4-46.3) fL RDW Coeff of Camilo 15.8 H (11.5-14.5) % Lymph # (Auto) 0.82 L (1.2-3.4) K/uL Immature Gran # (Auto) 0.04 H (0.00-0.02) K/uL BUN/Creatinine Ratio 21.3 H (10-20) Glucose 104 H (70-99(Fasting)) mg/dl AST 11 L (13-39) U/L Total Protein 5.9 L (6.0-8.3) gm/dl Albumin 3.3 L (3.4-5.0) gm/dl Lipase 7 L (11-82) U/L Diagnostic Findings Chest X-Ray 09/29/21 15:24 XR chest 1V portable CLINICAL HISTORY: cant swallow TECHNIQUE: Single frontal radiograph of the chest was obtained. Comparison: Comparison is made to chest one view 09/28/2021 FINDINGS: Dual lead pacemaker is seen. Right portacatheter is stable. Cardiomegaly is noted. Faint airspace opa[place] is in the right lower lung. There is a small right pleural effusion. IMPRESSION: Faint airspace opacity in the right lower lung may represent atelectasis, pneumonia, and/or aspiration. Redemonstration of small right pleural effusion. ACT 112: Negative or not required by law. Electronically signed by: Deven Jaime M.D. 09/29/2021 4:00 PM Abdomen/Pelvis CT 09/29/21 16:14 CT SCAN OF THE CHEST, ABDOMEN, AND PELVIS WITH IV CONTRAST CLINICAL HISTORY: Dysphagia. Generalized abdominal pain. Esophageal cancer. Constipation. COMPARISON STUDY: CT scan of the chest, abdomen, and pelvis dated 05/04/2020. PET/CT dated 05/27/2020. TECHNIQUE: Following the IV administration of 93 of Optiray 320, CT scan of the chest, abdomen, and pelvis was performed from the thoracic inlet to the proximal femora. Images are reviewed in the axial, sagittal, and coronal planes. IV contrast was administered without complication. A dose lowering technique was utilized adhering to the principles of ALARA. CT DOSE: 768.79 mGy.cm FINDINGS: CHEST: Thyroid: Imaged portions of the thyroid gland are normal in size and attenuation. Thoracic aorta: There is mild atherosclerotic calcification of the thoracic aorta, which is normal in caliber and demonstrates standard 3-vessel arch anatomy. No dissection is seen. Pulmonary vasculature: The pulmonary trunk is normal in caliber. There are no filling defects identified in the central pulmonary vessels to indicate pulmonary embolus. Note that this examination was not protocoled for evaluation of the pulmonary arteries. Heart: A right internal jugular central venous infusion port is in place. A cardiac pacemaker is present in the left chest wall. The heart is mildly enlarged noting a small pericardial effusion. There are coronary artery calcifications. Esophagus: There is postoperative change from esophagectomy with gastric pull- through procedure. There is nonspecific soft tissue thickening at the gastroesophageal anastomosis just below the thoracic inlet on image #46. There is minimal surrounding infiltration. Lungs and pleural spaces: There are small left and small to moderate right pleural effusions with associated atelectasis. The right pleural effusion appears to be at least partially loculated. No airspace consolidation is identified typical for pneumonia. There are punctate calcified granulomas. A 12 mm nodular density in the right middle lobe seen on image #168 is indeterminant and may be related to atelectasis. Mediastinum: Mildly enlarged mediastinal lymph nodes measure up to 10 mm in short axis. There is no pneumomediastinum. Cassidy: Clear. Axillae: There is no axillary lymphadenopathy. Bony thorax: The skeletal structures are osteopenic. Degenerative change and hyperkyphosis is noted in the thoracic spine. No lytic or blastic lesions are identified. Arthritic change is noted in the shoulders. ABDOMEN AND PELVIS: Liver: The contrast-enhanced liver is normal in size, contour, and attenuation. There is no intrahepatic biliary ductal dilatation. The hepatic veins and portal veins are patent. A 3.4 cm simple cyst is seen in the left lobe. Additional subcentimeter hepatic hypodensities also likely represent cysts but are too small for definitive characterization. These are unchanged from 2020. Gallbladder: Unremarkable. Spleen: Normal in size and attenuation. Numerous (greater than 10) hypodense splenic lesions measure up to 1.9 cm. These have been present dating back to 2020. Pancreas: Moderately atrophic and grossly unremarkable. Adrenal glands: Unremarkable. Kidneys: The contrast enhanced kidneys are atrophic and without hydronephrosis. The kidneys enhance symmetrically. There is a 2.1 cm indeterminant and potentially enhancing lesion in the posterior interpolar right kidney seen on image #102. This is increased in size dating back to 2020. A 1.7 cm indeterminant lesion in the right upper pole on image #70 has also modestly increased in size. Additional subcentimeter renal cortical hypodensities may represent cysts but are too small for definitive characterization. Abdominal vasculature: The abdominal aorta is normal in course and caliber noting moderate atherosclerotic calcification. Bowel: There is no bowel obstruction. Mild fecal retention is seen throughout the colon. The appendix is well-visualized and normal. Peritoneum: No intraperitoneal free air is identified. Trace free fluid is noted in the pelvis. There is a fat-containing umbilical hernia Lymphadenopathy: None. Pelvic viscera: The prostate gland is enlarged and heterogeneous noting median lobe hypertrophy. The bladder wall is thickened and trabeculated indicating chronic outlet obstruction. Skeletal structures: The skeletal structures are osteopenic. There is moderate to advanced lumbosacral spondylosis. No lytic or blastic lesions are seen. IMPRESSION: 1. There is postoperative change from esophagectomy and gastric pull-through procedure. 2. There is nonspecific soft tissue thickening seen at the gastroesophageal anastomosis just below the thoracic inlet with minimal surrounding infiltration. Soft tissue thickening is similar to prior studies, and the mild infiltration appears somewhat increased from previous. Clinical correlation will required. This could be further evaluated with endoscopy if clinically warranted. 3. Cardiomegaly and small pleural effusions as above. 4. There is no airspace consolidation typical for pneumonia. 5. There is an indeterminant 12 mm nodular density in the right middle lobe which may be related to adjacent atelectasis. This was not seen on prior examinations. A 3-4 month follow-up chest CT is recommended for reassessment. 6. No acute infectious or inflammatory findings are seen in the abdomen or pelvis. 7. There are 2 indeterminant cortical lesions in the right kidney which may show postcontrast enhancement. This could represent complex cysts, with renal neoplasms not excluded. These lesions have increased in size as compared to 05/04/2020. A dedicated renal protocol CT or MRI is recommended for further characterization. 8. Trace free fluid seen in the pelvis. 9. Mildly enlarged mediastinal lymph nodes are pathologically indeterminant and similar to prior studies. 10. There is no definite evidence of metastatic disease in the chest, abdomen, or pelvis. 11. Additional findings as above. ACT 112: Positive. There are findings on this exam that require communication between the performing entity and the patient following Patient Test Result Information Act ([place] Act 112) guidelines. Electronically signed by: Christopher Rubin M.D. 09/29/2021 5:[address] 09/29/21 16:14 CT SCAN OF THE CHEST, ABDOMEN, AND PELVIS WITH IV CONTRAST CLINICAL HISTORY: Dysphagia. Generalized abdominal pain. Esophageal cancer. Constipation. COMPARISON STUDY: CT scan of the chest, abdomen, and pelvis dated 05/04/2020. PET/CT dated 05/27/2020. TECHNIQUE: Following the IV administration of 93 of Optiray 320, CT scan of the chest, abdomen, and pelvis was performed from the thoracic inlet to the proximal femora. Images are reviewed in the axial, sagittal, and coronal planes. IV contrast was administered without complication. A dose lowering technique was utilized adhering to the principles of ALARA. CT DOSE: 768.79 mGy.cm FINDINGS: CHEST: Thyroid: Imaged portions of the thyroid gland are normal in size and a ttenuation. Thoracic aorta: There is mild atherosclerotic calcification of the thoracic aorta, which is normal in caliber and demonstrates standard 3-vessel arch anatomy. No dissection is seen. Pulmonary vasculature: The pulmonary trunk is normal in caliber. There are no filling defects identified in the central pulmonary vessels to indicate pulmonary embolus. Note that this examination was not protocoled for evaluation of the pulmonary arteries. Heart: A right internal jugular central venous infusion port is in place. A cardiac pacemaker is present in the left chest wall. The heart is mildly enlarged noting a small pericardial effusion. There are coronary artery calcifications. Esophagus: There is postoperative change from esophagectomy with gastric pull- through procedure. There is nonspecific soft tissue thickening at the gastroesophageal anastomosis just below the thoracic inlet on image #46. There is minimal surrounding infiltration. Lungs and pleural spaces: There are small left and small to moderate right pleural effusions with associated atelectasis. The right pleural effusion appears to be at least partially loculated. No airspace consolidation is identified typical for pneumonia. There are punctate calcified granulomas. A 12 mm nodular density in the right middle lobe seen on image #168 is indeterminant and may be related to atelectasis. Mediastinum: Mildly enlarged mediastinal lymph nodes measure up to 10 mm in short axis. There is no pneumomediastinum. Cassidy: Clear. Axillae: There is no axillary lymphadenopathy. Bony thorax: The skeletal structures are osteopenic. Degenerative change and hyperkyphosis is noted in the thoracic spine. No lytic or blastic lesions are identified. Arthritic change is noted in the shoulders. ABDOMEN AND PELVIS: Liver: The contrast-enhanced liver is normal in size, contour, and attenuation. There is no intrahepatic biliary ductal dilatation. The hepatic veins and portal veins are patent. A 3.4 cm simple cyst is seen in the left lobe. Additional subcentimeter hepatic hypodensities also likely represent cysts but are too small for definitive characterization. These are unchanged from 2020. Gallbladder: Unremarkable. Spleen: Normal in size and attenuation. Numerous (greater than 10) hypodense splenic lesions measure up to 1.9 cm. These have been present dating back to 2019. Pancreas: Moderately atrophic and grossly unremarkable. Adrenal glands: Unremarkable. Kidneys: The contrast enhanced kidneys are atrophic and without hydronephrosis. The kidneys enhance symmetrically. There is a 2.1 cm indeterminant and potentially enhancing lesion in the posterior interpolar right kidney seen on image #102. This is increased in size dating back to 2019. A 1.7 cm indeterminant lesion in the right upper pole on image #70 has also modestly increased in size. Additional subcentimeter renal cortical hypodensities may represent cysts but are too small for definitive characterization. Abdominal vasculature: The abdominal aorta is normal in course and caliber noting moderate atherosclerotic calcification. Bowel: There is no bowel obstruction. Mild fecal retention is seen throughout the colon. The appendix is well-visualized and normal. Peritoneum: No intraperitoneal free air is identified. Trace free fluid is noted in the pelvis. There is a fat-containing umbilical hernia Lymphadenopathy: None. Pelvic viscera: The prostate gland is enlarged and heterogeneous noting median lobe hypertrophy. The bladder wall is thickened and trabeculated indicating chronic outlet obstruction. Skeletal structures: The skeletal structures are osteopenic. There is moderate to advanced lumbosacral spondylosis. No lytic or blastic lesions are seen. IMPRESSION: 1. There is postoperative change from esophagectomy and gastric pull-through procedure. 2. There is nonspecific soft tissue thickening seen at the gastroesophageal anastomosis just below the thoracic inlet with minimal surrounding infiltration. Soft tissue thickening is similar to prior studies, and the mild infiltration appears somewhat increased from previous. Clinical correlation will required. This could be further evaluated with endoscopy if clinically warranted. 3. Cardiomegaly and small pleural effusions as above. 4. There is no airspace consolidation typical for pneumonia. 5. There is an indeterminant 12 mm nodular density in the right middle lobe which may be related to adjacent atelectasis. This was not seen on prior examinations. A 3-4 month follow-up chest CT is recommended for reassessment. 6. No acute infectious or inflammatory findings are seen in the abdomen or pelvis. 7. There are 2 indeterminant cortical lesions in the right kidney which may show postcontrast enhancement. This could represent complex cysts, with renal neoplasms not excluded. These lesions have increased in size as compared to 05/04/2020. A dedicated renal protocol CT or MRI is recommended for further characterization. 8. Trace free fluid seen in the pelvis. 9. Mildly enlarged mediastinal lymph nodes are pathologically indeterminant and similar to prior studies. 10. There is no definite evidence of metastatic disease in the chest, abdomen, or pelvis. 11. Additional findings as above. ACT 112: Positive. There are findings on this exam that require communication between the performing entity and the patient following Patient Test Result Information Act ([place] Act 112) guidelines. Electronically signed by: Christopher Rubin M.D. 09/29/2021 5:10 PM ECG Additional Comments: Atrial-sensed ventricular-paced rhythm Abnormal ECG When compared with ECG of 19-JAN-2021 14:27, Vent. rate has increased BY 44 BPM. Code Status & VTE Plan Code Status Full Code. Supervising Physician Co-Signing Physician Notes Patient seen and examined, chart reviewed, case discussed with Matilda Neal PA-C and I agree with the assessment and plan as above except as otherwise no guido. Patient is admitted for acute on chronic dysphagia in the setting of esophageal cancer. On exam patient is in no acute distress, heart rate is regular, breathing is unlabored without wheezing. No pooling of secretions or drooling, uvula midline. patient reports he has had some pain when raising his arms above his shoulder but denies exertional dyspnea and chest pain at rest. Reports he has been seen for this pain was told it may be related to a nerve after his cardiac window. Has had progressive worsening dysphagia related to cancer, has been seen by ENT as an outpatient and reports that he is pending callback for potential outpatient surgery on one of his vocal cords. In 1 day his symptoms suddenly worsened and while he is able to swallow saliva without difficulty, has not been able to tolerate food/liquids as noted above. He does have some pain when swallowing, no pain at rest. GI consulted as above for EGD, n.p.o. at midnight. Troponin is mildly elevated, no territorial ST changes, no chest pain at time of assessment. High-sensitivity troponin trended. PG Care Time/CCT Total # of Minutes Spent Total Time Spent with Patient: Total time spent is greater than 50% in coordination of care (as documented) at patient's floor/unit and/or counseling patient: Coding Level of Care Code 57882 Initial Inpt Care Lvl 3 Diagnoses Dysphagia R13.10 Esophageal cancer C15.5 Malignant neoplasm of esophagus location: lower third Hypertension I10 Hypertension type: essential hypertension Paroxysmal atrial fibrillation I48.0 Hypothyroidism E03.9 Chronic GERD K21.9 Ankylosing spondylitis M45.6 Ankylosing spondylitis location: lumbar region Chest pain R07.9 Aspiration into respiratory tract T17.908A B12 deficiency E53.[address] scan, chest R93.[address] scan, kidney R93.429 (1) Esophageal cancer Malignant neoplasm of esophagus location: lower third Qualified Code(s): C15.5 - Malignant neoplasm of lower third of esophagus (2) Ankylosing spondylitis Ankylosing spondylitis location: lumbar region Qualified Code(s): M45.6 - Ankylosing spondylitis lumbar region (3) Hypertension Hypertension type: essential hypertension Qualified Code(s): I10 - Essential (primary) hypertension
--- NOTE | 2021-09-29 16:29 | Gastrointestinal Consultation ---
Date of Consultation September 29, 2021 Assessment & Plan (1) Constipation: (2) Dysphagia: (3) Esophageal cancer: This is a 76 y/o male with recurrent esophageal CA on chemo, who presented with trouble swallowing, vomiting. He has had constipation as well. On exam is resting comfortably in bed, appears chronically ill with a soft voice, soft abd. Given his history we wonder about esophageal stricture/stenosis, esophagitis, tumor growth vs other. - Start IV PPI BID to cover for reflux - NPO - CT A/P - r/o obstruction, and CT chest to update his imaging - COVID testing - Will plan for EGD tomorrow to evaluate his dysphagia Thank you for allowing us to participate in the care of this patient. Please call with any acute changes, questions or concerns. Please see addendum below with additional recommendation from my supervising physician. Supervising Physician Co-Signing Physician Notes I performed a history and physical examination of the patient today, including specifically on physical exam - soft abdomen. I have discussed the patient's management with the advanced practitioner. Please refer to the nurse practitioner's note for the documented findings and plan of care. Hx of GEJ adeno s/p resection then recurrent malignancy in a LN near the UES, now with constipation and dysphagia. Plan for CT scan and EGD tomorrow. May eventually need a feeding tube. History of Present Illness Reason for Consultation: dysphagia History of Present Illness Mr. Solano is a 76-year-old male with PMHx esophageal cancer s/p esophagectomy in 2016 with radiation w/ recurrence in 2020, with mets to the mediastinum, undergoing chemo, recently hospitalized [facility] [place] w/ pericardial effusion, HTN, GERD, hypothyroidism, SSS, A. fib s/p pacemaker in 2020, ankylosing spondylitis, and recent pericardial effusion hospitalized at [facility] who presents today with worsening dysphagia. He's here with his . He was eating somewhat less recently and having some constipation, but he was eating, and was in his usual state of health until yesterday when he developed n/v, dysphagia, unable to keep down PO. He tolerated a cheeseburger but then was not able to tolerate soup. He has a very soft voice. COVID neg. Currently tolerating his secretions. Labs on admission unchanged. Resting comfortably in bed, at bedside who helps with the history. Unfortunately their daughter is on hospice for colon cancer. He has some ongoing dyspnea. No CP, melena, hematochezia, hematemesis, fever, chills, abd pain. CXR w/ faint airspace opacity in the right lower lung may represent atelectasis, pneumonia, and/or aspiration. Redemonstration of small right pleural effusion. PET CT 07/2021: 1. Focal intense activity is again seen at the proximal gastroesophageal anastomosis with closely adjacent paraesophageal lymph node or mass which has slightly decreased in size. Continued activity would be suspicious for ongoing active neoplastic disease. 2. No new sites of uptake are identified. 3. Persistent large pericardial effusion. 4. Remaining chronic findings as above EUS 04/2021: - Extrinsic narrowing of the upper esophagus from the paraesophageal mass. Dilated. - Recurrent paraesophageal mass in the upper third of the esophagus. Fine needle aspiration performed. A. Paraesophageal mass, EUS-guided fine needle aspiraiton: Category: Malignant Final Interpretation: Adenocarcinoma, compatible with recurrence of patients known gastroesophageal primary. Cellblock: The cellblock preparation shows similar findings. The findings are correlated with the patients history of invasive GE junction adenocarcinoma ([id number], [id number]). Material is sufficient for additional testing, if clinically indicated. Allergies Allergy/AdvReac Type Severity Reaction Status Date / Time No Known Allergies Allergy Unknown Verified 09/29/21 15:10 Home Medications Medication Instructions Recorded Confirmed Type cyanocobalamin (vitamin B-12) 100 100 mcg PO DAILY tab 11/28/18 09/29/21 History mcg tablet sucralfate 1 gram tablet (Carafate) 1 g PO Q6H PRN tab 12/08/20 09/29/21 History pseudoephedrine-DM 30 mg-15 mg/5 5 ml PO Q6 PRN 01/19/21 09/29/21 History mL oral liquid apixaban 5 mg tablet (Eliquis) 5 mg PO BID 03/30/21 09/29/21 History tramadol 50 mg tablet 50 mg PO Q8H PRN 09/28/21 09/29/21 History famotidine 40 mg tablet 40 mg PO HS 09/29/21 09/29/21 History levothyroxine 75 mcg tablet 75 mcg PO DAILYBB 09/29/21 09/29/21 History Patient History Medical History Ankylosing spondylitis Arthritis Chronic GERD Chronic osteoarthritis Elevated prostate specific antigen (PSA) Elevated prostate specific antigen (PSA) Enlarged prostate with lower urinary tract symptoms (LUTS) Esophageal cancer (04/07/15) Recurrence noted 06/02/2020 Fatigue Gastroparesis History of chemotherapy Oxaliplatin + Xeloda (started 05/25/15) History of radiation therapy 05/25/15 - 07/01/15 (Concurrent with chemo) received 5040cGy @ [facility] Hypertension Hypothyroidism Impaired fasting glucose Incomplete bladder emptying Obesity DBE (obstructive sleep apnea) Palpitations Port-A-Cath in place Right Restrictive lung disease Shortness of breath on exertion Sinus bradycardia Spinal stenosis Surgical History H/O colonoscopy H/O esophagectomy (09/09/15) Robotic-assisted minimally invasive [place] Esophagectomy ([facility] Abarca - Dr. Martins/Araceli) History of endoscopy (06/02/20) Upper EUS with FNA of pariesophageal lymph nodes History of hernia repair inguinal History of lymph node biopsy Family History Father , Passed age 67 of ND Myocardial infarction Mother , Passed age 52 of unknown cancer mets Diabetes Brother , Passed age 85 of unknown Alzheimer disease Myocardial infarction Sister No problems noted. Sister , Passed in 50's of Lymphoma No problems noted. Sister , Passed in 90's of natural causes No problems noted. Daughter Colon cancer, Onset Age: 46 Currently being treated Denies family history of Ovarian cancer Prostate cancer Breast cancer Lung cancer Stroke Social History Smoking Status: Former smoker Tobacco Type: Cigarettes packs per day: 1; Years Smoked: 10; Second Hand Exposure: Yes (Father smoked in home); Hx Alcohol Use: No Hx Substance Use: No Preferred Language: Divehi Communication Ability: Effective Visual Impairment: Limited Hearing Ability: Hard of Hearing Vest Tailor Required: No Beliefs That Will Affect Care: None marital status: Current Living Situation: Spouse current occupational status: retired current occupation: Retired [employer] How many Children do You have: 1 Feels Safe at Home: Yes Childhood Exposure to Second-Hand Smoke: Yes (Father smoked in home ) caffeine: Yes (1-2 cups of coffee/day ) during the past year weight has: remained stable Dental Care, Regularly: No Physical Activity Frequency: Does not Exercise Seatbelt Use: always Sunscreen Use: Yes Assistive Devices: None Review of Systems Review of Systems: All systems reviewed & are unremarkable except as noted in HPI & below Physical Exam Constitutional: Chronically ill, somewhat frail, NAD Eyes: PERRL, conjunctivae normal, anicteric sclerae Respiratory: normal respiratory effort Cardiovascular: RRR, no murmur, no edema Gastrointestinal (Abdomen): normal bowel sounds, soft, nontender, no hepatosplenomegaly Skin: no rashes, warm and dry Psychiatric: A+Ox3, euthymic affect Results & Data ([facility]) Vital Signs (Past 12 Hours) Vital Signs Temp Pulse Resp BP Pulse Ox 09/29/21 14:27 36.8 C 89 20 153/85 H 94 Laboratory Results 09/29/21 09/29/21 09/29/21 Range/Units 15:22 15:13 15:13 WBC 6.82 (4.8-10.8) K/uL RBC 3.43 L (4.7-6.1) M/uL Hgb 10.2 L (14.0-18.0) g/dL Hct 31.6 L (42-52) % MCV 92.1 (80-100) fL MCH 29.7 (25-34) pg MCHC 32.3 (32-36) g/dL RDW Std Deviation 53.3 H (36.4-46.3) fL RDW Coeff of Camilo 15.8 H (11.5-14.5) % Plt Count 245 (130-400) K/uL MPV 9.8 (7.4-10.4) fL Immature Gran % (Auto) 0.6 % Neut % (Auto) 81.3 % Lymph % (Auto) 12.0 % Forrest % (Auto) 6.0 % Eos % (Auto) 0.1 % Baso % (Auto) 0.0 % Neut # (Auto) 5.54 (1.4-6.5) K/uL Lymph # (Auto) 0.82 L (1.2-3.4) K/uL Forrest # (Auto) 0.41 (0.11-0.59) K/uL Eos # (Auto) 0.01 (0-0.5) K/uL Baso # (Auto) 0.00 (0-0.2) K/uL Immature Gran # (Auto) 0.04 H (0.00-0.02) K/uL Sodium 138 (136-145) mmol/L Potassium 3.9 (3.5-5.1) mmol/L Chloride 104 (98-107) mmol/L Carbon Dioxide 27 (21-32) mmol/L Anion Gap 7 (3-11) BUN 23 (6-23) mg/dl Creatinine 1.08 (0.6-1.4) mg/dl Est Cr Clr Drug Dosing 58.0 ml/min Est GFR ( Amer) 76.3 ml/min Est GFR (Non-Af Amer) 65.9 ml/min BUN/Creatinine Ratio 21.3 H (10-20) Glucose 104 H (70-99(Fasting)) mg/dl Calcium 9.2 (8.5-10.1) mg/dl Total Bilirubin 0.8 (0.2-1.0) mg/dl AST 11 L (13-39) U/L ALT 9 (7-52) U/L Alkaline Phosphatase 55 (34-104) U/L Total Protein 5.9 L (6.0-8.3) gm/dl Albumin 3.3 L (3.4-5.0) gm/dl Globulin 2.6 (2.5-4.0) gm/dl Albumin/Globulin Ratio 1.3 (0.9-2) Lipase 7 L (11-82) U/L SARS-CoV-2, RNA, NAAT NEGATIVE (NEGATIVE) (1) Esophageal cancer Malignant neoplasm of esophagus location: lower third Qualified Code(s): C15.5 - Malignant neoplasm of lower third of esophagus
[2021-09-29] MEDS ORDERED: AMPICILLIN/SULBACTAM SOD 1,500 MG in 0.9 % SODIUM CHLORIDE 100 ML IV STA (16:33)
[2021-09-29] MEDS ORDERED: OPTIRAY 320 100ml IV ONE (16:37)
[2021-09-29] MEDS ORDERED: PANTOprazole 40 MG in SYRINGE 0 ML IV ONE (17:00)
[2021-09-29] MEDS ORDERED: AMPICILLIN/SULBACTAM SOD 3,000 MG in 0.9 % SODIUM CHLORIDE 100 ML IV ONE (17:00)
--- NOTE | 2021-09-29 17:11 | CT Scan Report ---
CT SCAN OF THE CHEST, ABDOMEN, AND PELVIS WITH IV CONTRAST CLINICAL HISTORY: Dysphagia. Generalized abdominal pain. Esophageal cancer. Constipation. COMPARISON STUDY: CT scan of the chest, abdomen, and pelvis dated 05/04/2020. PET/CT dated 05/27/2020. TECHNIQUE: Following the IV administration of 93 of Optiray 320, CT scan of the chest, abdomen, and p gustavo was performed from the thoracic inlet to the proximal femora. Images are reviewed in the axial, sagittal, and coronal planes. IV contrast was administered without complication. A dose lowering te chnique was utilized adhering to the principles of ALARA. CT DOSE: 768.79 mGy.cm FINDINGS: CHEST: Thyroid: Imaged portions of the thyroid gland are normal in size and attenuation. Thoracic aorta: There is mild atherosclerotic calcification of the thoracic aorta, which is normal in caliber and demonstrates standard 3-vessel arch anatomy. No dissection is seen. Pulmonary vasculature: The pulmonary trunk is normal in caliber. There are no filling defects identif ied in the central pulmonary vessels to indicate pulmonary embolus. Note that this examination was no t protocoled for evaluation of the pulmonary arteries. Heart: A right internal jugular central venous infusion port is in place. A cardiac pacemaker is pres ent in the left chest wall. The heart is mildly enlarged noting a small pericardial effusion. There a re coronary artery calcifications. Esophagus: There is postoperative change from esophagectomy with gastric pull-through procedure. Ther e is nonspecific soft tissue thickening at the gastroesophageal anastomosis just below the thoracic i nlet on image #46. There is minimal surrounding infiltration. Lungs and pleural spaces: There are small left and small to moderate right pleural effusions with ass ociated atelectasis. The right pleural effusion appears to be at least partially loculated. No airspa ce consolidation is identified typical for pneumonia. There are punctate calcified granulomas. A 12 m m nodular density in the right middle lobe seen on image #168 is indeterminant and may be related to atelectasis. Mediastinum: Mildly enlarged mediastinal lymph nodes measure up to 10 mm in short axis. There is no p neumomediastinum. Cassidy: Clear. Axillae: There is no axillary lymphadenopathy. Bony thorax: The skeletal structures are osteopenic. Degenerative change and hyperkyphosis is noted i n the thoracic spine. No lytic or blastic lesions are identified. Arthritic change is noted in the sh oulders. ABDOMEN AND PELVIS: Liver: The contrast-enhanced liver is normal in size, contour, and attenuation. There is no intrahepa tic biliary ductal dilatation. The hepatic veins and portal veins are patent. A 3.4 cm simple cyst is seen in the left lobe. Additional subcentimeter hepatic hypodensities also likely represent cysts bu t are too small for definitive characterization. These are unchanged from 2020. Gallbladder: Unremarkable. Spleen: Normal in size and attenuation. Numerous (greater than 10) hypodense splenic lesions measure up to 1.9 cm. These have been present dating back to 2020. Pancreas: Moderately atrophic and grossly unremarkable. Adrenal glands: Unremarkable. Kidneys: The contrast enhanced kidneys are atrophic and without hydronephrosis. The kidneys enhance s ymmetrically. There is a 2.1 cm indeterminant and potentially enhancing lesion in the posterior inter polar right kidney seen on image #102. This is increased in size dating back to 2020. A 1.7 cm indete rminant lesion in the right upper pole on image #70 has also modestly increased in size. Additional s ubcentimeter renal cortical hypodensities may represent cysts but are too small for definitive charac terization. Abdominal vasculature: The abdominal aorta is normal in course and caliber noting moderate atheroscle rotic calcification. Bowel: There is no bowel obstruction. Mild fecal retention is seen throughout the colon. The appendix is well-visualized and normal. Peritoneum: No intraperitoneal free air is identified. Trace free fluid is noted in the pelvis. There is a fat-containing umbilical hernia Lymphadenopathy: None. Pelvic viscera: The prostate gland is enlarged and heterogeneous noting median lobe hypertrophy. The bladder wall is thickened and trabeculated indicating chronic outlet obstruction. Skeletal structures: The skeletal structures are osteopenic. There is moderate to advanced lumbosacra l spondylosis. No lytic or blastic lesions are seen. IMPRESSION: 1. There is postoperative change from esophagectomy and gastric pull-through procedure. 2. There is nonspecific soft tissue thickening seen at the gastroesophageal anastomosis just below th e thoracic inlet with minimal surrounding infiltration. Soft tissue thickening is similar to prior st udies, and the mild infiltration appears somewhat increased from previous. Clinical correlation will required. This could be further evaluated with endoscopy if clinically warranted. 3. Cardiomegaly and small pleural effusions as above. 4. There is no airspace consolidation typical for pneumonia. 5. There is an indeterminant 12 mm nodular density in the right middle lobe which may be related to a djacent atelectasis. This was not seen on prior examinations. A 3-4 month follow-up chest CT is recom mended for reassessment. 6. No acute infectious or inflammatory findings are seen in the abdomen or pelvis. 7. There are 2 indeterminant cortical lesions in the right kidney which may show postcontrast enhance ment. This could represent complex cysts, with renal neoplasms not excluded. These lesions have incre ased in size as compared to 05/04/2020. A dedicated renal protocol CT or MRI is recommended for [facility]. 8. Trace free fluid seen in the pelvis. 9. Mildly enlarged mediastinal lymph nodes are pathologically indeterminant and similar to prior stud ies. 10. There is no definite evidence of metastatic disease in the chest, abdomen, or pelvis. 11. Additional findings as above. ACT 112: Positive. There are findings on this exam that require communication between the performing entity and the patient following Patient Test Result Information Act ([place] Act 112) guidelines. Electronically signed by: Christopher Rubin M.D. 09/29/2021 5:10 PM
[2021-09-29 21:15] LABS: Appearance Urine Clear (Clear); Bilirubin Urine Negative (Negative); Blood Urine Negative (Negative); Color Urine Yellow; Glucose Urine UA Negative (Negative); Ketones Urine Negative (Negative); Leukocyte Esterase Urine Negative (Negative); Nitrite Urine Negative (Negative); Protein Urine Negative (Negative); Specific Gravity Urine 1.034 (1.000-1.030); Urobilinogen Urine Positive (Negative); pH Urine 6.5 (4.5-7.5)
[2021-09-29] MEDS ORDERED: bisacodyL 10 MG SUPP PR PRN (21:51)
[2021-09-29] MEDS ORDERED: AMPICILLIN/SULBACTAM SOD 1,500 MG in 0.9 % SODIUM CHLORIDE 100 ML IV SCH (22:30)
[2021-09-29] MEDS: PANTOprazole 40 MG in SYRINGE 0 ML IV SCH (22:50)
[2021-09-30 06:08] LABS: Basophils # (auto) 0.01 K/uL (0-0.2); Basophils % (auto) 0.2 %; Eosinophils # (auto) 0.07 K/uL (0-0.5); Eosinophils % (auto) 1.4 %; Hematocrit (blood only) 29.2 % (42-52); Hemoglobin 9.4 g/dL (14.0-18.0); Immature Granulocytes # (auto) 0.02 K/uL (0.00-0.02); Immature Granulocytes % (auto) 0.4 %; Lymphocytes # (auto) 0.52 K/uL (1.2-3.4); Lymphocytes % (auto) 10.1 %; Mean Corpuscular Hemoglobin 29.7 pg (25-34); Mean Corpuscular Hgb Conc 32.2 g/dL (32-36); Mean Corpuscular Volume 92.1 fL (80-100); Mean Platelet Volume 9.7 fL (7.4-10.4); Monocytes # (auto) 0.45 K/uL (0.11-0.59); Monocytes % (auto) 8.7 %; Neutrophils % (auto) 79.2 %; Platelet Count 216 K/uL (130-400); RDW Coefficient of Variation 15.8 % (11.5-14.5); RDW Standard Deviation 53.4 fL (36.4-46.3); Red Blood Count 3.17 M/uL (4.7-6.1); White Blood Count 5.17 K/uL (4.8-10.8)
[2021-09-30 06:32] LABS: Calcium 8.5 mg/dl (8.5-10.1); Est GFR (African American) 83.8 ml/min; Est GFR (Non-African American) 72.3 ml/min; Potassium 3.7 mmol/L (3.5-5.1)
[2021-09-30] MEDS: PANTOprazole 40 MG in SYRINGE 0 ML IV SCH ×2 (08:23→20:35)
--- NOTE | 2021-09-30 12:50 | Gastroenterology Progress Note ---
Date of Service September 30, 2021 Assessment & Plan (1) Constipation: (2) Dysphagia: (3) Esophageal cancer: Plan: This is a 76 y/o male with recurrent esophageal CA s/p resection, then recurrence in a LN near the UES, on chemo, who presented with trouble swallowing, regurgitation/vomiting. He has had constipation as well. Given his history we wonder about esophageal stricture/stenosis, esophagitis, tumor growth vs other. CTAP w/ no obstruction. Overnight had elevated troponin. EGD planned for today but was cancelled on this account. On exam is resting comfortably in bed, appears chronically ill with a soft voice. - Continue PPI BID - NPO - IVF - Recommend obtaining cardiac evaluation of troponin as well as for pre- procedural clearance - Pending that, will plan for EGD tomorrow to evaluate his dysphagia - For constipation would avoid PO right now; can try Fleets enema Thank you for allowing us to participate in the care of this patient. Please call with any acute changes, questions or concerns. Please see addendum below with additional recommendation from my supervising physician. Admission and Anticipated Discharge Date Admission Date: September 29, 2021 Supervising Physician Co-Signing Physician Notes I saw and evaluated the patient. We are consulted for recurrent solid food dysphagia thought to be related to a radiation stricture or perhaps recurrent malignancy. The patient did have a positive troponin endoscopic evaluation was canceled. Recommendations N.p.o. at midnight for upper endoscopy Monday Cardiology consultation for clearance prior to EGD Subjective No acute events overnight. EGD was planned for today however overnight a troponin was checked and was found to be elevated and the procedure was deferred. Pt denies CP; has ongoing SOB. Has not had anything PO. No vomiting, abd pain, GIB. Labs today are stable. Physical Exam Eyes: PERRL, conjunctivae normal, anicteric sclerae ENMT: Soft, hoarse voice Respiratory: normal respiratory effort Gastrointestinal (Abdomen): Inspection/Auscultation: abdomen normal to inspection; abdomen not distended Percussion/Palpation: abdomen soft; abdomen nontender Skin: no rashes, warm and dry Psychiatric: A+Ox3, euthymic affect Results & Data ([facility]) Vital Signs (Past 12 Hours) Vital Signs Temp Pulse Pulse Resp BP BP Pulse Ox 09/30/21 11:10 37.0 C 78 18 104/66 94 09/30/21 09:47 70 09/30/21 07:18 36.9 C 86 18 116/68 90 09/30/21 02:45 36.3 C L 84 18 130/79 95 Laboratory Results 09/30/21 09/30/21 09/29/21 Range/Units 05:36 05:36 19:03 WBC 5.17 (4.8-10.8) K/uL RBC 3.17 L (4.7-6.1) M/uL Hgb 9.4 L (14.0-18.0) g/dL Hct 29.2 L (42-52) % MCV 92.1 (80-100) fL MCH 29.7 (25-34) pg MCHC 32.2 (32-36) g/dL RDW Std Deviation 53.4 H (36.4-46.3) fL RDW Coeff of Camilo 15.8 H (11.5-14.5) % Plt Count 216 (130-400) K/uL MPV 9.7 (7.4-10.4) fL Immature Gran % (Auto) 0.4 % Neut % (Auto) 79.2 % Lymph % (Auto) 10.1 % [place] % (Auto) 8.7 % Eos % (Auto) 1.4 % Baso % (Auto) 0.2 % Neut # (Auto) 4.10 (1.4-6.5) K/uL Lymph # (Auto) 0.52 L (1.2-3.4) K/uL [place] # (Auto) 0.45 (0.11-0.59) K/uL Eos # (Auto) 0.07 (0-0.5) K/uL Baso # (Auto) 0.01 (0-0.2) K/uL Immature Gran # (Auto) 0.02 (0.00-0.02) K/uL Sodium 140 (136-145) mmol/L Potassium 3.7 (3.5-5.1) mmol/L Chloride 108 H (98-107) mmol/L Carbon Dioxide 28 (21-32) mmol/L Anion Gap 4 (3-11) BUN 20 (6-23) mg/dl Creatinine 1.00 (0.6-1.4) mg/dl Est Cr Clr Drug Dosing 59.0 ml/min Est GFR ( Amer) 83.8 ml/min Est GFR (Non-Af Amer) 72.3 ml/min BUN/Creatinine Ratio 20.0 (10-20) Glucose 83 (70-99(Fasting)) mg/dl Calcium 8.5 (8.5-10.1) mg/dl Total Bilirubin (0.2-1.0) mg/dl AST (13-39) U/L ALT (7-52) U/L Alkaline Phosphatase (34-104) U/L Troponin I High Sens (0-20) pg/ml Total Protein (6.0-8.3) gm/dl Albumin (3.4-5.0) gm/dl Globulin (2.5-4.0) gm/dl Albumin/Globulin Ratio (0.9-2) Lipase (11-82) U/L Procalcitonin (0-0.5) ng/ml Urine Color Yellow Urine Appearance Clear (Clear) Urine pH 6.5 (4.5-7.5) Ur Specific [place] 1.034 H (1.000-1.030) Urine Protein Negative (Negative) Urine Glucose (UA) Negative (Negative) Urine Ketones Negative (Negative) Urine Blood Negative (Negative) Urine Nitrite Negative (Negative) Urine Bilirubin Negative (Negative) Urine Urobilinogen Positive H (Negative) Ur Leukocyte Esterase Negative (Negative) Nasal Screen MRSA (PCR) (Negative) SARS-CoV-2, RNA, NAAT (NEGATIVE) 09/29/21 09/29/21 09/29/21 Range/Units 18:43 18:07 15:22 WBC (4.8-10.8) K/uL RBC (4.7-6.1) M/uL Hgb (14.0-18.0) g/dL Hct (42-52) % MCV (80-100) fL MCH (25-34) pg MCHC (32-36) g/dL RDW Std Deviation (36.4-46.3) fL RDW Coeff of Camilo (11.5-14.5) % Plt Count (130-400) K/uL MPV (7.4-10.4) fL Immature Gran % (Auto) % Neut % (Auto) % Lymph % (Auto) % [place] % (Auto) % Eos % (Auto) % Baso % (Auto) % Neut # (Auto) (1.4-6.5) K/uL Lymph # (Auto) (1.2-3.4) K/uL [place] # (Auto) (0.11-0.59) K/uL Eos # (Auto) (0-0.5) K/uL Baso # (Auto) (0-0.2) K/uL Immature Gran # (Auto) (0.00-0.02) K/uL Sodium (136-145) mmol/L Potassium (3.5-5.1) mmol/L Chloride (98-107) mmol/L Carbon Dioxide (21-32) mmol/L Anion Gap (3-11) BUN (6-23) mg/dl Creatinine (0.6-1.4) mg/dl Est Cr Clr Drug Dosing ml/min Est GFR ( Amer) ml/min Est GFR (Non-Af Amer) ml/min BUN/Creatinine Ratio (10-20) Glucose (70-99(Fasting)) mg/dl Calcium (8.5-10.1) mg/dl Total Bilirubin (0.2-1.0) mg/dl AST (13-39) U/L ALT (7-52) U/L Alkaline Phosphatase (34-104) U/L Troponin I High Sens 30.7 H (0-20) pg/ml Total Protein (6.0-8.3) gm/dl Albumin (3.4-5.0) gm/dl Globulin (2.5-4.0) gm/dl Albumin/Globulin Ratio (0.9-2) Lipase (11-82) U/L Procalcitonin (0-0.5) ng/ml Urine Color Urine Appearance (Clear) Urine pH (4.5-7.5) Ur Specific [place] (1.000-1.030) Urine Protein (Negative) Urine Glucose (UA) (Negative) Urine Ketones (Negative) Urine Blood (Negative) Urine Nitrite (Negative) Urine Bilirubin (Negative) Urine Urobilinogen (Negative) Ur Leukocyte Esterase (Negative) Nasal Screen MRSA (PCR) Negative (Negative) SARS-CoV-2, RNA, NAAT NEGATIVE (NEGATIVE) 09/29/21 09/29/21 09/29/21 Range/Units 15:13 15:13 15:13 WBC (4.8-10.8) K/uL RBC (4.7-6.1) M/uL Hgb (14.0-18.0) g/dL Hct (42-52) % MCV (80-100) fL MCH (25-34) pg MCHC (32-36) g/dL RDW Std Deviation (36.4-46.3) fL RDW Coeff of Camilo (11.5-14.5) % Plt Count (130-400) K/uL MPV (7.4-10.4) fL Immature Gran % (Auto) % Neut % (Auto) % Lymph % (Auto) % [place] % (Auto) % Eos % (Auto) % Baso % (Auto) % Neut # (Auto) (1.4-6.5) K/uL Lymph # (Auto) (1.2-3.4) K/uL [place] # (Auto) (0.11-0.59) K/uL Eos # (Auto) (0-0.5) K/uL Baso # (Auto) (0-0.2) K/uL Immature Gran # (Auto) (0.00-0.02) K/uL Sodium 138 (136-145) mmol/L Potassium 3.9 (3.5-5.1) mmol/L Chloride 104 (98-107) mmol/L Carbon Dioxide 27 (21-32) mmol/L Anion Gap 7 (3-11) BUN 23 (6-23) mg/dl Creatinine 1.08 (0.6-1.4) mg/dl Est Cr Clr Drug Dosing 58.0 ml/min Est GFR ( Amer) 76.3 ml/min Est GFR (Non-Af Amer) 65.9 ml/min BUN/Creatinine Ratio 21.3 H (10-20) Glucose 104 H (70-99(Fasting)) mg/dl Calcium 9.2 (8.5-10.1) mg/dl Total Bilirubin 0.8 (0.2-1.0) mg/dl AST 11 L (13-39) U/L ALT 9 (7-52) U/L Alkaline Phosphatase 55 (34-104) U/L Troponin I High Sens 29.1 H (0-20) pg/ml Total Protein 5.9 L (6.0-8.3) gm/dl Albumin 3.3 L (3.4-5.0) gm/dl Globulin 2.6 (2.5-4.0) gm/dl Albumin/Globulin Ratio 1.3 (0.9-2) Lipase 7 L (11-82) U/L Procalcitonin < 0.05 (0-0.5) ng/ml Urine Color Urine Appearance (Clear) Urine pH (4.5-7.5) Ur Specific [place] (1.000-1.030) Urine Protein (Negative) Urine Glucose (UA) (Negative) Urine Ketones (Negative) Urine Blood (Negative) Urine Nitrite (Negative) Urine Bilirubin (Negative) Urine Urobilinogen (Negative) Ur Leukocyte Esterase (Negative) Nasal Screen MRSA (PCR) (Negative) SARS-CoV-2, RNA, NAAT (NEGATIVE) 09/29/21 Range/Units 15:13 WBC 6.82 (4.8-10.8) K/uL RBC 3.43 L (4.7-6.1) M/uL Hgb 10.2 L (14.0-18.0) g/dL Hct 31.6 L (42-52) % MCV 92.1 (80-100) fL MCH 29.7 (25-34) pg MCHC 32.3 (32-36) g/dL RDW Std Deviation 53.3 H (36.4-46.3) fL RDW Coeff of Camilo 15.8 H (11.5-14.5) % Plt Count 245 (130-400) K/uL MPV 9.8 (7.4-10.4) fL Immature Gran % (Auto) 0.6 % Neut % (Auto) 81.3 % Lymph % (Auto) 12.0 % [place] % (Auto) 6.0 % Eos % (Auto) 0.1 % Baso % (Auto) 0.0 % Neut # (Auto) 5.54 (1.4-6.5) K/uL Lymph # (Auto) 0.82 L (1.2-3.4) K/uL [place] # (Auto) 0.41 (0.11-0.59) K/uL Eos # (Auto) 0.01 (0-0.5) K/uL Baso # (Auto) 0.00 (0-0.2) K/uL Immature Gran # (Auto) 0.04 H (0.00-0.02) K/uL Sodium (136-145) mmol/L Potassium (3.5-5.1) mmol/L Chloride (98-107) mmol/L Carbon Dioxide (21-32) mmol/L Anion Gap (3-11) BUN (6-23) mg/dl Creatinine (0.6-1.4) mg/dl Est Cr Clr Drug Dosing ml/min Est GFR ( Amer) ml/min Est GFR (Non-Af Amer) ml/min BUN/Creatinine Ratio (10-20) Glucose (70-99(Fasting)) mg/dl Calcium (8.5-10.1) mg/dl Total Bilirubin (0.2-1.0) mg/dl AST (13-39) U/L ALT (7-52) U/L Alkaline Phosphatase (34-104) U/L Troponin I High Sens (0-20) pg/ml Total Protein (6.0-8.3) gm/dl Albumin (3.4-5.0) gm/dl Globulin (2.5-4.0) gm/dl Albumin/Globulin Ratio (0.9-2) Lipase (11-82) U/L Procalcitonin (0-0.5) ng/ml Urine Color Urine Appearance (Clear) Urine pH (4.5-7.5) Ur Specific [place] (1.000-1.030) Urine Protein (Negative) Urine Glucose (UA) (Negative) Urine Ketones (Negative) Urine Blood (Negative) Urine Nitrite (Negative) Urine Bilirubin (Negative) Urine Urobilinogen (Negative) Ur Leukocyte Esterase (Negative) Nasal Screen MRSA (PCR) (Negative) SARS-CoV-2, RNA, NAAT (NEGATIVE) (1) Esophageal cancer Malignant neoplasm of esophagus location: unspecified location Qualified Code(s): C15.9 - Malignant neoplasm of esophagus, unspecified
--- NOTE | 2021-09-30 13:43 | Hospitalist Progress Note ---
Date of Service September 30, 2021 Assessment & Plan (1) Dysphagia: Plan: - Began 1 day prior to admission, patient regurgitated soup. Attempted to eat toast, Jell-O, and water this morning, all quickly regurgitated. Does not believe he choked or aspirated. Patient has a history of esophageal adenocarcinoma undergoing chemotherapy Has also seen ENT for evaluation of vocal cord dysfunction, and is pending outpatient follow-up for potential larygnoplasty - [facility] GI consulted, EGD potentially 10/01 pending cardiac evaluation - CT A/P ordered to r/o obstruction-no bowel obstruction, mild fecal retention noted. No metastatic disease identified, no inflammatory or infectious changes - IV Protonix 40 mg twice daily. Patient reports he would want a PEG tube if necessary and he were to have persistent dysphagia - on hep gtt for afib briding, hold 6 hours prior to EGD and resume doac postop (2) Chest pain: Plan: - Prior to admission had reported central chest pain that radiated to his jaw that went away 15 to 20 minutes later with rest. -No chest pain at time of admitting assessment or following up assessment. Patient reports he was seen for this and was told it may be due to a pinched nerve. Denies exertional chest pain - Atrial paced rhythm without territorial changes in ER. HS troponin--> 29.1 repeat 30.7. Q6H trended, --> 57.5. repeat pending - Prior Echo 08/27/21: Large circumferential effusion. s/p left thoractomy, pericardial window, and biopsy without complication at [facility] [place], discharged 09/18/21. - History of pericardial effusion, had thoracotomy at [facility] 2 weeks ago. Echo completed, pending read Report of chest pain developing 09/30, EKG with ST changes. At bedside patient reports he thinks this may have been a miscommunication, denies any chest pain radiating into his neck/shoulder or chest pressure or shortness of breath. Reports that he has had some pain when raising his arm above his head as previously noted, but has had no chest pain/pressure today or overnight. - 09/30 EKG: atrial sensed. No territorial ST segment elevations/depression. - on apixaban prior to admisison for afib, held in anticipation of EGD scheduling and converted to heparin gtt for bridging (3) Esophageal cancer: Plan: - S/P robotic assisted and open esophagectomy 09/09/2015. history of local recurrence x2. Now back on chemotherapy, FOLFIRI regimen q2wks - Patient has tumor pressing on vocal cords, has lost voice and ability to cough several months ago. - Takes OTC medication for management of secretions. - Chemo [id number], completed most recent course 09/30 via continuous infusion pump (4) Constipation: Plan: - Reports last BM was one week ago, CT a/p showed mild fecal retention. - Bisacodyl OR - May use fleet enema for constipation if no improvement with bisacodyl (5) Aspiration into respiratory tract: Plan: - When comparing CXR done today against outpt CXR yesterday - ? progression of developing consolidation in RLL -with increased secretions, 4 episodes of regurgitation,initial decision to cover for aspiration pneumonia with Unasyn. - CT-C: no evidence of PNA, abx d/james, pct neg - Follow clinically (6) Hypertension: Plan: - No longer taking medication for this. (7) Paroxysmal atrial fibrillation: Plan: - s/p permanent pacemaker 12/2020 due to concurrent SSS + a fib. -DOAC held on admit pending EGD - Converted to heparin gtt while pending EGD, hold when procedure scheduled/CC and may resume apixaban post procedure (8) Hypothyroidism: Plan: - N.p.o. - continue levothyroxine when tolerating p.o. intake. (9) Chronic GERD: Plan: - On Pepcid at home, will be on IV PPI per GI. (10) Ankylosing spondylitis: Plan: - Widespread arthralgias. Clinically stable. No new concerns. (11) B12 deficiency: Plan: - Continue B12 supplementation when tolerating p.o. intake. (12) Abnormal CT scan, chest: Plan: - Indeterminant 12 mm nodular density in the right middle lobe which may be related to adjacent atelectasis. This was not seen on prior examinations. - 3-4 month follow-up chest CT is recommended for reassessment. (13) Abnormal CT scan, kidney: Plan: - There are 2 indeterminant cortical lesions in the right kidney which may show postcontrast enhancement. This could represent complex cysts, with renal neoplasms not excluded. These lesions have increased in size as compared to 05/04/2020. - Renal protocol CT pending for further characterization, pending for following evaluation of issues above Plan: - Admit to med/tele. - SCDs, holding Eliquis now for planned EGD tomorrow. - Full code. Admission and Anticipated Discharge Date Admission Date: September 29, 2021 Subjective Seen at bedside in the morning. Denies fever, chills, sweats. Continues to have throat pain when swallowing, no pain at rest. No drooling, is able to swallow secretions. No concern for aspirations today. No jaw tension. No abdominal pain/diarrhea. Does endorse constipation No chest pain/shortness of breath morning assessment. Denies palpitations. Denies chest pressure Does endorse some pain in the past lifting his arms above his head since having a cardiac window, denies pain overnight and today. Review of Systems Review of Systems: All systems reviewed & are unremarkable except as noted in Subjective Physical Exam Physical Exam: General: A&Ox3. NAD. Cooperative. HEENT: Atraumatic, normocephalic. Uvula midline. No drooling, tongue protrudes midline. Right port present Pulm: CTAB A&P. -wheezes, -rales, -rhonchi. Symmetrical chest rise. No increase in work of breathing. No respiratory distress. Cardiac: RRR, -mrg. Radial pulses intact and symmetrical. Abdominal: Nontender, nondistended, soft. BS present. Results & Data Results & Data ([facility]) Vital Signs (Past 12 Hours) Vital Signs Temp Pulse Pulse Resp BP BP Pulse Ox 09/30/21 11:10 37.0 C 78 18 104/66 94 09/30/21 09:47 70 09/30/21 07:18 36.9 C 86 18 116/68 90 09/30/21 02:45 36.3 C L 84 18 130/79 95 PG Care Time/CCT Total # of Minutes Spent Total Time Spent with Patient: Total time spent is greater than 50% in coordination of care (as documented) at patient's floor/unit and/or counseling patient: Coding Level of Care Code 24323 Subseq Hosp Care Lvl 3 Diagnoses Dysphagia R13.10 Chest pain R07.9 Esophageal cancer C15.9 Malignant neoplasm of esophagus location: unspecified location Constipation K59.00 Aspiration into respiratory tract T17.908A Hypertension I10 Hypertension type: essential hypertension Paroxysmal atrial fibrillation I48.0 Hypothyroidism E03.9 Chronic GERD K21.9 Ankylosing spondylitis M45.6 Ankylosing spondylitis location: lumbar region B12 deficiency E53.[address] scan, chest R93.[address] scan, kidney R93.429 (1) Esophageal cancer Malignant neoplasm of esophagus location: unspecified location Qualified Code(s): C15.9 - Malignant neoplasm of esophagus, unspecified (2) Ankylosing spondylitis Ankylosing spondylitis location: lumbar region Qualified Code(s): M45.6 - Ankylosing spondylitis lumbar region (3) Hypertension Hypertension type: essential hypertension Qualified Code(s): I10 - Essential (primary) hypertension
[2021-09-30] MEDS: D5W AND LACTATED RINGERS 1,000 ML IV SCH (15:09)
[2021-09-30] MEDS: Heparin IV Adult Wt-Based Standard *NO* Bolus Protocol IV SCH ×2 (16:36→17:30)
[2021-09-30] MEDS ORDERED: HEPARIN SODIUM/DEXTROSE 25,000 UNITS/500 ML BAG IV SCH (16:45)
[2021-09-30 17:07] LABS: INR 1.1 (0.9-1.1); Partial Thromboplastin Ratio 1.2; Partial Thromboplastin Time 32.1 Seconds (21.0-31.0); Prothrombin Time 12.1 Seconds (9.0-12.0)
--- NOTE | 2021-09-30 18:47 | Cardiology Consultation ---
Date of Consultation September 30, 2021 Assessment & Plan (1) Preop cardiovascular exam: (2) Elevated troponin: (3) Dysphagia: Patient is a 76-year-old male with multiple medical issues as listed above referred for evaluation prior to planned EGD to evaluate worsening dysphagia in the setting of esophageal carcinoma history. Laboratory studies performed to evaluate symptoms atypical for angina demonstrated mildly elevated troponin Cardiac history notable for paroxysmal atrial fibrillation with tachybradycardia syndrome, dual-chamber pacemaker in place. Patient underwent left thoracotomy for a large pericardial effusion on 09/16/2021 Echocardiogram today demonstrates no wall motion abnormalities other than septal dyssynergy consistent with paced rhythm. No pericardial effusion no significant valvular Impression plan: No cardiac contraindications to procedure as planned. Troponins likely elevated based on recent surgical procedure and illness (not demand ischemia). No signs or symptoms of acute coronary syndrome or prior myocardial infarction No history of angina, congestive heart failure, valvular heart disease or untreated arrhythmia. Functional capacity above 5 METS. Pacemaker functioning appropriately No indications for further cardiac testing or laboratory studies History of Present Illness Reason for Consultation: Preoperative cardiovascular evaluation, elevated troponin Requesting Physician: Dr. Stern Attending Physician: Suman Benoit MD History of Present Illness Patient is a 76-year-old male with medical and ongoing issues which include 1. Hypertension 2. Obstructive sleep apnea 3. Sick sinus syndrome/tachybradycardia syndrome status post dual-chamber pacemaker insertion 01/19/2021, [employer] Valeria XT DR ROONEY [id number] 4. 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 Large pericardial effusion status post pericardial window via left thoracotomy 09/16/2021 Patient presented this admission with difficulties with dysphagia which have progressed. He has anticipated EGD for further evaluation. On presentation patient noted pain with lifting his arms above his head. Denies any current chest pain specifically denies any history of angina, myocardial infarction. No history of valvular disease congestive heart failure TIA or stroke. Functional capacity well above 5 METS Left thoracotomy incision healing well. Echocardiogram with preserved wall motion and no pericardial effusion Allergies Allergy/AdvReac Type Severity Reaction Status Date / Time No Known Allergies Allergy Unknown Verified 09/29/21 15:10 Home Medications Medication Instructions Recorded Confirmed Type cyanocobalamin (vitamin B-12) 100 100 mcg PO DAILY tab 11/28/18 09/29/21 History mcg tablet sucralfate 1 gram tablet (Carafate) 1 g PO Q6H PRN tab 12/08/20 09/29/21 History pseudoephedrine-DM 30 mg-15 mg/5 5 ml PO Q6 PRN 01/19/21 09/29/21 History mL oral liquid apixaban 5 mg tablet (Eliquis) 5 mg PO BID 03/30/21 09/29/21 History tramadol 50 mg tablet 50 mg PO Q8H PRN 09/28/21 09/29/21 History famotidine 40 mg tablet 40 mg PO HS 09/29/21 09/29/21 History levothyroxine 75 mcg tablet 75 mcg PO DAILYBB 09/29/21 09/29/21 History Patient History Medical History Ankylosing spondylitis Arthritis Chronic GERD Chronic osteoarthritis Elevated prostate specific antigen (PSA) Elevated prostate specific antigen (PSA) Enlarged prostate with lower urinary tract symptoms (LUTS) Esophageal cancer (04/07/15) Recurrence noted 06/02/2020 Fatigue Gastroparesis History of chemotherapy Oxaliplatin + Xeloda (started 05/25/15) History of radiation therapy 05/25/15 - 07/01/15 (Concurrent with chemo) received 5040cGy @ [facility] Hypertension Hypothyroidism Impaired fasting glucose Incomplete bladder emptying Obesity DEB (obstructive sleep apnea) Palpitations Port-A-Cath in place Right Restrictive lung disease Shortness of breath on exertion Sinus bradycardia Spinal stenosis Surgical History H/O colonoscopy H/O esophagectomy (09/09/15) Robotic-assisted minimally invasive [place] [facility] Esophagectomy (Kaushik Abarca - Dr. Martins/Araceli) History of endoscopy (06/02/20) Upper EUS with FNA of pariesophageal lymph nodes History of hernia repair inguinal History of lymph node biopsy Family History Father , Passed age 67 of [place] Myocardial infarction Mother , Passed age 52 of unknown cancer mets Diabetes Brother , Passed age 85 of unknown Alzheimer disease Myocardial infarction Sister No problems noted. Sister , Passed in 50's of Lymphoma No problems noted. Sister , Passed in 90's of natural causes No problems noted. Daughter Colon cancer, Onset Age: 46 Currently being treated Denies family history of Ovarian cancer Prostate cancer Breast cancer Lung cancer Stroke Social History Smoking Status: Never smoker Tobacco Type: Cigarettes packs per day: 1; Years Smoked: 10; Second Hand Exposure: Yes (Father smoked in home); Hx Alcohol Use: No Hx Substance Use: No Preferred Language: Danish Communication Ability: Effective Communication Ability Comment: soft quiet voice Visual Impairment: Limited Hearing Ability: Hard of Hearing Automatic Pattern Edger Required: No Beliefs That Will Affect Care: None marital status: Current Living Situation: Spouse current occupational status: retired current occupation: Retired [employer] How many Children do You have: 1 Feels Safe at Home: Yes Safety Concerns: Feels Safe At This Time Childhood Exposure to Second-Hand Smoke: Yes (Father smoked in home ) caffeine: Yes (1-2 cups of coffee/day ) during the past year weight has: remained stable Dental Care, Regularly: No Physical Activity Frequency: Does not Exercise Seatbelt Use: always Sunscreen Use: Yes Assistive Devices: None Review of Systems Review of Systems: All systems reviewed & are unremarkable except as noted in HPI & below Physical Exam Constitutional: average body habitus; no acute distress Eyes: PERRL, conjunctivae normal, anicteric sclerae ENMT: Voice hoarse Neck: trachea midline, no thyromegaly Respiratory: normal respiratory effort, lungs clear to auscultation Cardiovascular: Rate/Rhythm: regular rate and regular rhythm Heart Sounds: normal S1 and normal S2; no murmur Vessels: no JVD and no femoral bruit Extremities: + edema (Trace pedal) Chest (Breasts): Additional Comments: Left thoracotomy incision healing well Gastrointestinal (Abdomen): normal bowel sounds, soft, nontender, no hepatosplenomegaly Musculoskeletal: no cyanosis or clubbing, extremities motor strength 5/5 Results & Data ([facility]) Vital Signs (Past 12 Hours) Vital Signs Temp Pulse Pulse Resp BP BP Pulse Ox 09/30/21 17:04 36.9 C 75 18 126/75 97 09/30/21 14:48 70 09/30/21 11:10 37.0 C 78 18 104/66 94 09/30/21 09:47 70 09/30/21 07:18 36.9 C 86 18 116/68 90 Laboratory Results Laboratory Results - last 24 hr 09/29/21 09/29/21 09/30/21 18:07 19:03 05:36 WBC 5.17 RBC 3.17 L Hgb 9.4 L Hct 29.2 L MCV 92.1 MCH 29.7 MCHC 32.2 RDW Std Deviation 53.4 H RDW Coeff of Camilo 15.8 H Plt Count 216 MPV 9.7 Immature Gran % (Auto) 0.4 Neut % (Auto) 79.2 Lymph % (Auto) 10.1 [place] % (Auto) 8.7 Eos % (Auto) 1.4 Baso % (Auto) 0.2 Neut # (Auto) 4.10 Lymph # (Auto) 0.52 L [place] # (Auto) 0.45 Eos # (Auto) 0.07 Baso # (Auto) 0.01 Immature Gran # (Auto) 0.02 PT INR APTT PTT Ratio Sodium Potassium Chloride Carbon Dioxide Anion Gap BUN Creatinine Est Cr Clr Drug Dosing Est GFR ( Amer) Est GFR (Non-Af Amer) BUN/Creatinine Ratio Glucose Calcium Troponin I High Sens Urine Color Yellow Urine Appearance Clear Urine pH 6.5 Ur Specific Starlight 1.034 H Urine Protein Negative Urine Glucose (UA) Negative Urine Ketones Negative Urine Blood Negative Urine Nitrite Negative Urine Bilirubin Negative Urine Urobilinogen Positive H Ur Leukocyte Esterase Negative Nasal Screen MRSA (PCR) Negative 09/30/21 09/30/21 09/30/21 05:36 13:49 16:34 WBC RBC Hgb Hct MCV MCH MCHC RDW Std Deviation RDW Coeff of Camilo Plt Count MPV Immature Gran % (Auto) Neut % (Auto) Lymph % (Auto) [place] % (Auto) Eos % (Auto) Baso % (Auto) Neut # (Auto) Lymph # (Auto) [place] # (Auto) Eos # (Auto) Baso # (Auto) Immature Gran # (Auto) PT INR APTT PTT Ratio Sodium 140 Potassium 3.7 Chloride 108 H Carbon Dioxide 28 Anion Gap 4 BUN 20 Creatinine 1.00 Est Cr Clr Drug Dosing 59.0 Est GFR ( Amer) 83.8 Est GFR (Non-Af Amer) 72.3 BUN/Creatinine Ratio 20.0 Glucose 83 Calcium 8.5 Troponin I High Sens 57.5 H* D 62.4 H* Urine Color Urine Appearance Urine pH Ur Specific Starlight Urine Protein Urine Glucose (UA) Urine Ketones Urine Blood Urine Nitrite Urine Bilirubin Urine Urobilinogen Ur Leukocyte Esterase Nasal Screen MRSA (PCR) 09/30/21 16:34 WBC RBC Hgb Hct MCV MCH MCHC RDW Std Deviation RDW Coeff of Camilo Plt Count MPV Immature Gran % (Auto) Neut % (Auto) Lymph % (Auto) [place] % (Auto) Eos % (Auto) Baso % (Auto) Neut # (Auto) Lymph # (Auto) [place] # (Auto) Eos # (Auto) Baso # (Auto) Immature Gran # (Auto) PT 12.1 H INR 1.1 APTT 32.1 H PTT Ratio 1.2 Sodium Potassium Chloride Carbon Dioxide Anion Gap BUN Creatinine Est Cr Clr Drug Dosing Est GFR ( Amer) Est GFR (Non-Af Amer) BUN/Creatinine Ratio Glucose Calcium Troponin I High Sens Urine Color Urine Appearance Urine pH Ur Specific Starlight Urine Protein Urine Glucose (UA) Urine Ketones Urine Blood Urine Nitrite Urine Bilirubin Urine Urobilinogen Ur Leukocyte Esterase Nasal Screen MRSA (PCR) ECG Additional Comments: EKG: Atrial sensed ventricular paced rhythm no new finding
[2021-09-30] MEDS ORDERED: HEPARIN SOD 5,000 UNIT/0.5 ML VIAL SQ SCH (22:00)
[2021-10-01 01:55] LABS: Partial Thromboplastin Ratio 3.1
[2021-10-01 02:08] LABS: Partial Thromboplastin Time 86.4 Seconds (21.0-31.0)
[2021-10-01] MEDS: D5W AND LACTATED RINGERS 1,000 ML IV SCH ×2 (04:06→18:07)
[2021-10-01 05:07] LABS: Basophils # (auto) 0.01 K/uL (0-0.2); Basophils % (auto) 0.3 %; Eosinophils # (auto) 0.04 K/uL (0-0.5); Eosinophils % (auto) 1.2 %; Hematocrit (blood only) 28.4 % (42-52); Hemoglobin 9.1 g/dL (14.0-18.0); Lymphocytes # (auto) 0.38 K/uL (1.2-3.4); Lymphocytes % (auto) 11.4 %; Mean Corpuscular Hemoglobin 29.9 pg (25-34); Mean Corpuscular Volume 93.4 fL (80-100); Mean Platelet Volume 9.7 fL (7.4-10.4); Monocytes # (auto) 0.12 K/uL (0.11-0.59); Monocytes % (auto) 3.6 %; Neutrophils # (auto) 2.79 K/uL (1.4-6.5); Neutrophils % (auto) 83.5 %; Platelet Count 209 K/uL (130-400); RDW Coefficient of Variation 15.6 % (11.5-14.5); RDW Standard Deviation 53.2 fL (36.4-46.3); Red Blood Count 3.04 M/uL (4.7-6.1); White Blood Count 3.34 K/uL (4.8-10.8)
[2021-10-01 05:11] LABS: BUN Creatinine Ratio 16.7 (10-20); Calcium 8.2 mg/dl (8.5-10.1); Creatinine Clr Calc Pharmacy 70.2 ml/min; Est GFR (African American) 97.9 ml/min; Est GFR (Non-African American) 84.5 ml/min; Potassium 3.6 mmol/L (3.5-5.1)
[2021-10-01 05:31] LABS: Troponin I High Sensitivity 61.2 pg/ml (0-20)
--- NOTE | 2021-10-01 07:48 | Hospitalist Progress Note ---
Date of Service October 01, 2021 Assessment & Plan (1) Dysphagia: Plan: - Began 1 day prior to admission, patient regurgitated soup. Attempted to eat toast, Jell-O, and water this morning, all quickly regurgitated. Does not believe he choked or aspirated. Patient has a history of esophageal adenocarcinoma undergoing chemotherapy Has also seen ENT for evaluation of vocal cord dysfunction, and is pending outpatient follow-up for potential larygnoplasty - [facility] GI consulted, EGD potentially 10/01 pending cardiac evaluation - CT A/P ordered to r/o obstruction-no bowel obstruction, mild fecal retention noted. No metastatic disease identified, no inflammatory or infectious changes - IV Protonix 40 mg twice daily. Patient reports he would want a PEG tube if necessary and he were to have persistent dysphagia - on hep gtt for afib bridging, may hold 6 hours prior to any procedure Did discuss with gastroenterology. Performed a barium swallow which was limited by concern for aspiration but which did did show Severe narrowing at the gastroesophageal anastomosis status post esophagectomy with gastric pull-up. This corresponds to the finding on chest CT of September 29, 2021. This could be due to a benign or malignant stricture. Recommended that patient have seizure tertiary care due to elevated risk for the narrowing at his anastomosis site and concern for need for fluoroscopic guidance and potential higher level of care should patient have a complication/perforation. Called [facility] 10/01 a.m. and reviewed case. Patient has been accepted by Dr. Myers, however they are currently at capacity and are pending an available bed. Patient is on wait list and estimated availability at some point this weekend. Converted to N for nutritional support (2) Chest pain: Plan: - Prior to admission had reported central chest pain that radiated to his jaw that went away 15 to 20 minutes later with rest. -No chest pain at time of admitting assessment or following up assessment. Patient reports he was seen for this and was told it may be due to a pinched nerve. Denies exertional chest pain - Atrial paced rhythm without territorial changes in ER. HS troponin--> 29.1 repeat 30.7. Q6H trended, --> 57.5. repeat pending - Prior Echo 08/27/21: Large circumferential effusion. s/p left thoractomy, pericardial window, and biopsy without complication at [facility], discharged 09/18/21. - History of pericardial effusion, had thoracotomy at [facility] 2 weeks ago. TTE, no acute abnormalities and normal wall motion Report of chest pain developing 09/30, EKG with ST changes. At bedside patient reports he thinks this may have been a miscommunication, denies any chest pain radiating into his neck/shoulder or chest pressure or shortness of breath. Reports that he has had some pain when raising his arm above his head as previously noted, but has had no chest pain/pressure today or overnight. - 09/30 EKG: atrial sensed. No territorial ST segment elevations/depression. - on apixaban prior to admisison for afib, held in anticipation of EGD scheduling and converted to heparin gtt for bridging -DDx includes Chemo related - Cardiology consulted. No cardiac contraindications to procedure. Troponins likely 2/2 procedure/illness, not demand or ACS. No indications for further testing at this time. (3) Esophageal cancer: Plan: - S/P robotic assisted and open esophagectomy 09/09/2015. history of local recurrence x2. Now back on chemotherapy, FOLFIRI regimen q2wks - Patient has tumor pressing on vocal cords, has lost voice and ability to cough several months ago. - Takes OTC medication for management of secretions. - Chemo [id number], completed most recent course 09/30 via continuous infusion pump (4) Constipation: Plan: - Reports last BM was one week ago, CT a/p showed mild fecal retention. - Bisacodyl HI - May use fleet enema for constipation if no improvement with bisacodyl (5) Aspiration into respiratory tract: Plan: - When comparing CXR done today against outpt CXR yesterday - ? progression of developing consolidation in RLL -with increased secretions, 4 episodes of regurgitation,initial decision to cover for aspiration pneumonia with Unasyn. - CT-C: no evidence of PNA, abx d/james, pct neg - Follow clinically (6) Hypertension: Plan: - No longer taking medication for this. (7) Paroxysmal atrial fibrillation: Plan: - s/p permanent pacemaker 12/2020 due to concurrent SSS + a fib. -DOAC held on admit pending EGD - Converted to heparin gtt while pending EGD, hold when procedure scheduled/CC and may resume apixaban post procedure (8) Hypothyroidism: Plan: - N.p.o. - continue levothyroxine when tolerating p.o. intake. (9) Chronic GERD: Plan: - On Pepcid at home, will be on IV PPI per GI. (10) Ankylosing spondylitis: Plan: - Widespread arthralgias. Clinically stable. No new concerns. (11) B12 deficiency: Plan: - Continue B12 supplementation when tolerating p.o. intake. (12) Abnormal CT scan, chest: Plan: - Indeterminant 12 mm nodular density in the right middle lobe which may be related to adjacent atelectasis. This was not seen on prior examinations. - 3-4 month follow-up chest CT is recommended for reassessment. (13) Abnormal CT scan, kidney: Plan: - There are 2 indeterminant cortical lesions in the right kidney which may show postcontrast enhancement. This could represent complex cysts, with renal neoplasms not excluded. These lesions have increased in size as compared to 05/04/2020. - Renal protocol CT pending for further characterization, pending for following evaluation of issues above Plan: - Admit to med/tele. - SCDs, holding Eliquis now for planned EGD tomorrow. - Full code. Admission and Anticipated Discharge Date Admission Date: September 29, 2021 Subjective Seen at bedside. No new symptoms. No fevers, chills, sweats, shortness of breath, difficulty breathing, chest pain, chest pressure. Continues to have pain only when he swallows and not at rest. No drooling, is able to swallow saliva only. Did see cardiology last night was cleared for EGD. Pending evaluation from gastroenterology this morning, heparin was paused at 2 AM. Review of Systems Review of Systems: All systems reviewed & are unremarkable except as noted in Subjective Physical Exam Physical Exam: General: A&Ox3. NAD. Cooperative. HEENT: Atraumatic, normocephalic. Uvula midline. No drooling, tongue protrudes midline. Right port present Pulm: CTAB A&P. -wheezes, -rales, -rhonchi. Symmetrical chest rise. No increase in work of breathing. No respiratory distress. Cardiac: RRR, -mrg. Radial pulses intact and symmetrical. Abdominal: Nontender, nondistended, soft. BS present. Results & Data Results & Data ([facility]) Vital Signs (Past 12 Hours) Vital Signs Temp Pulse Pulse Resp BP Pulse Ox Pulse Ox 10/01/21 04:13 75 10/01/21 04:00 36.9 C 78 18 130/74 95 09/30/21 23:00 37.3 C 83 18 126/76 94 09/30/21 21:51 93 PG Care Time/CCT Total # of Minutes Spent Total Time Spent with Patient: Total time spent is greater than 50% in coordination of care (as documented) at patient's floor/unit and/or counseling patient: Coding Level of Care Code 10510 Subseq Hosp Care Lvl 2 Diagnoses Dysphagia R13.10 Chest pain R07.9 Esophageal cancer C15.9 Malignant neoplasm of esophagus location: unspecified location Constipation K59.00 Aspiration into respiratory tract T17.908A Hypertension I10 Hypertension type: essential hypertension Paroxysmal atrial fibrillation I48.0 Hypothyroidism E03.9 Chronic GERD K21.9 Ankylosing spondylitis M45.6 Ankylosing spondylitis location: lumbar region B12 deficiency E53.[address] scan, chest R93.[address] scan, kidney R93.429 (1) Esophageal cancer Malignant neoplasm of esophagus location: unspecified location Qualified Code(s): C15.9 - Malignant neoplasm of esophagus, unspecified (2) Ankylosing spondylitis Ankylosing spondylitis location: lumbar region Qualified Code(s): M45.6 - Ankylosing spondylitis lumbar region (3) Hypertension Hypertension type: essential hypertension Qualified Code(s): I10 - Essential (primary) hypertension
[2021-10-01] MEDS: PANTOprazole 40 MG in SYRINGE 0 ML IV SCH (08:10)
--- NOTE | 2021-10-01 10:27 | Fluoroscopy Report ---
FL BARIUM SWALLOW USING OPTIRAY CLINICAL HISTORY: Optiray - pt w/ dysphagia, h/o recurrent esophageal CA COMPARISON STUDY: Chest CT September 29, 2021. Fluoroscopy time: 0.2 minutes. Number fluoroscopic images: 3 TECHNIQUE AND FINDINGS: Single contrast barium swallow was attempted utilizing Optiray. A small amoun t of tracheal aspiration was noted on the initial swallow. Therefore, the study was not completed. Al though suboptimally assessed on this exam, there is severe narrowing at the gastroesophageal anastomo sis. This is shown on chest CT of September 29, 2021. IMPRESSION: 1. Incomplete examination given a small amount of tracheal aspiration on the initial swallow. 2. Severe narrowing at the gastroesophageal anastomosis status post esophagectomy with gastric pull-u p. This corresponds to the finding on chest CT of September 29, 2021. This could be due to a benign or wayne gnant stricture. ACT 112: Negative or not required by law. Electronically signed by: Latrell Tabares M.D. 10/01/2021 10:26 AM
[2021-10-01 11:23] VITALS: O2SAT 97
[2021-10-01 12:53] LABS: Partial Thromboplastin Ratio 1.1; Partial Thromboplastin Time 31.6 Seconds (21.0-31.0)
[2021-10-01] MEDS ORDERED: DEXTROSE 10% 1,000 ML IV PRN (13:16)
[2021-10-01] MEDS ORDERED: TPN/PPN CONSULT PHARMACY PRN (13:31)
--- NOTE | 2021-10-01 14:31 | Gastroenterology Progress Note ---
Date of Service October 01, 2021 Assessment & Plan (1) Dysphagia: (2) Esophageal cancer: Plan: This is a 76 y/o male with recurrent esophageal CA s/p resection, then recurrence in a LN near the UES, on chemo, who presented with trouble swallowing, regurgitation/vomiting. He has had constipation as well. Given his history we wonder about esophageal stricture/stenosis, esophagitis, tumor growth vs other. CTAP w/ no obstruction. Overnight had elevated troponin. EGD planned for yesterday but had been cancelled. Barium swallow today as above, severe narrowing at the GE anastomosis. Given his history we wonder about malignant vs benign cause. On exam is resting comfortably in bed, appears chronically ill with a soft voice. Recommend EGD be done for evaluation of his symptoms/image findings, for possible dilation, consider doing under fluoroscopic guidance. Given his complicated history and proximal location of the narrowing near the thoracic inlet, recommend this be done at a tertiary center where there is a surgical team available in the event of a perforation. Therefore we recommend transfer to tertiary facility for further evaluation. This was discussed with the hospitalist and the pt. - Would continue PPI BID - Given his history and tracheal aspiration on imaging recommend NPO - IVF - For constipation would avoid PO right now; can try Fleets enema - GI will sign off, please call with questions Thank you for allowing us to participate in the care of this patient. Please call with any acute changes, questions or concerns. Please see addendum below with additional recommendation from my supervising physician. Admission and Anticipated Discharge Date Admission Date: September 29, 2021 Supervising Physician Co-Signing Physician Notes I have personally seen and examined the patient with Chichi Martniez PA-C. Her note reflects my exam and findings. I agree with her impression and plan. Patient would be best served at a advanced center that has chest surgery available for possible anastomotic disruption from endoscopic eval and therapeutics given nature and location of stricture. Abhilash Khan M.D. Subjective Patient seen and examined, chart reviewed. No acute events overnight. Pt had barium swallow done today as below. Offers no complaints; no chest pain, abd pain, throat pain, n/v, melena, hematochezia. Review of Systems Review of Systems: All systems reviewed & are unremarkable except as noted in HPI & below Physical Exam Eyes: PERRL, conjunctivae normal, anicteric sclerae Respiratory: normal respiratory effort Gastrointestinal (Abdomen): Soft abd Skin: no rashes, warm and dry Psychiatric: A+Ox3, euthymic affect Results & Data ([facility]) Vital Signs (Past 12 Hours) Vital Signs Temp Pulse Pulse Pulse Resp BP Pulse Ox 10/01/21 08:16 70 10/01/21 07:55 36.7 C 70 18 128/78 93 10/01/21 04:13 75 10/01/21 04:00 36.9 C 78 18 130/74 95 09/30/21 23:00 37.3 C 83 18 126/76 94 09/30/21 21:51 Pulse Ox 10/01/21 08:16 10/01/21 07:55 10/01/21 04:13 10/01/21 04:00 09/30/21 23:00 09/30/21 21:51 93 Laboratory Results 10/01/21 10/01/21 10/01/21 Range/Units 12:23 04:34 04:34 WBC 3.34 L (4.8-10.8) K/uL RBC 3.04 L (4.7-6.1) M/uL Hgb 9.1 L (14.0-18.0) g/dL Hct 28.4 L (42-52) % MCV 93.4 (80-100) fL MCH 29.9 (25-34) pg MCHC 32.0 (32-36) g/dL RDW Std Deviation 53.2 H (36.4-46.3) fL RDW Coeff of Camilo 15.6 H (11.5-14.5) % Plt Count 209 (130-400) K/uL MPV 9.7 (7.4-10.4) fL Immature Gran % (Auto) 0.0 % Neut % (Auto) 83.5 % Lymph % (Auto) 11.4 % [place] % (Auto) 3.6 % Eos % (Auto) 1.2 % Baso % (Auto) 0.3 % Neut # (Auto) 2.79 (1.4-6.5) K/uL Lymph # (Auto) 0.38 L (1.2-3.4) K/uL [place] # (Auto) 0.12 (0.11-0.59) K/uL Eos # (Auto) 0.04 (0-0.5) K/uL Baso # (Auto) 0.01 (0-0.2) K/uL Immature Gran # (Auto) 0.00 (0.00-0.02) K/uL PT (9.0-12.0) Seconds INR (0.9-1.1) APTT 31.6 H (21.0-31.0) Seconds PTT Ratio 1.1 Sodium 137 (136-145) mmol/L Potassium 3.6 (3.5-5.1) mmol/L Chloride 105 (98-107) mmol/L Carbon Dioxide 27 (21-32) mmol/L Anion Gap 5 (3-11) BUN 14 (6-23) mg/dl Creatinine 0.84 (0.6-1.4) mg/dl Est Cr Clr Drug Dosing 70.2 ml/min Est GFR ( Amer) 97.9 ml/min Est GFR (Non-Af Amer) 84.5 ml/min BUN/Creatinine Ratio 16.7 (10-20) Glucose 109 H (70-99(Fasting)) mg/dl Calcium 8.2 L (8.5-10.1) mg/dl Troponin I High Sens 61.2 H* D (0-20) pg/ml 10/01/21 09/30/21 09/30/21 Range/Units 00:27 22:32 16:34 WBC (4.8-10.8) K/uL RBC (4.7-6.1) M/uL Hgb (14.0-18.0) g/dL Hct (42-52) % MCV (80-100) fL MCH (25-34) pg MCHC (32-36) g/dL RDW Std Deviation (36.4-46.3) fL RDW Coeff of Camilo (11.5-14.5) % Plt Count (130-400) K/uL MPV (7.4-10.4) fL Immature Gran % (Auto) % Neut % (Auto) % Lymph % (Auto) % [place] % (Auto) % Eos % (Auto) % Baso % (Auto) % Neut # (Auto) (1.4-6.5) K/uL Lymph # (Auto) (1.2-3.4) K/uL [place] # (Auto) (0.11-0.59) K/uL Eos # (Auto) (0-0.5) K/uL Baso # (Auto) (0-0.2) K/uL Immature Gran # (Auto) (0.00-0.02) K/uL PT 12.1 H (9.0-12.0) Seconds INR 1.1 (0.9-1.1) APTT 86.4 H* 32.1 H (21.0-31.0) Seconds PTT Ratio 3.1 1.2 Sodium (136-145) mmol/L Potassium (3.5-5.1) mmol/L Chloride (98-107) mmol/L Carbon Dioxide (21-32) mmol/L Anion Gap (3-11) BUN (6-23) mg/dl Creatinine (0.6-1.4) mg/dl Est Cr Clr Drug Dosing ml/min Est GFR ( Amer) ml/min Est GFR (Non-Af Amer) ml/min BUN/Creatinine Ratio (10-20) Glucose (70-99(Fasting)) mg/dl Calcium (8.5-10.1) mg/dl Troponin I High Sens 75.7 H* D (0-20) pg/ml 09/30/21 09/30/21 Range/Units 16:34 13:49 WBC (4.8-10.8) K/uL RBC (4.7-6.1) M/uL Hgb (14.0-18.0) g/dL Hct (42-52) % MCV (80-100) fL MCH (25-34) pg MCHC (32-36) g/dL RDW Std Deviation (36.4-46.3) fL RDW Coeff of Camilo (11.5-14.5) % Plt Count (130-400) K/uL MPV (7.4-10.4) fL Immature Gran % (Auto) % Neut % (Auto) % Lymph % (Auto) % [place] % (Auto) % Eos % (Auto) % Baso % (Auto) % Neut # (Auto) (1.4-6.5) K/uL Lymph # (Auto) (1.2-3.4) K/uL [place] # (Auto) (0.11-0.59) K/uL Eos # (Auto) (0-0.5) K/uL Baso # (Auto) (0-0.2) K/uL Immature Gran # (Auto) (0.00-0.02) K/uL PT (9.0-12.0) Seconds INR (0.9-1.1) APTT (21.0-31.0) Seconds PTT Ratio Sodium (136-145) mmol/L Potassium (3.5-5.1) mmol/L Chloride (98-107) mmol/L Carbon Dioxide (21-32) mmol/L Anion Gap (3-11) BUN (6-23) mg/dl Creatinine (0.6-1.4) mg/dl Est Cr Clr Drug Dosing ml/min Est GFR ( Amer) ml/min Est GFR (Non-Af Amer) ml/min BUN/Creatinine Ratio (10-20) Glucose (70-99(Fasting)) mg/dl Calcium (8.5-10.1) mg/dl Troponin I High Sens 62.4 H* 57.5 H* D (0-20) pg/ml Diagnostic Findings Barium swallow: TECHNIQUE AND FINDINGS: Single contrast barium swallow was attempted utilizing Optiray. A small amount of tracheal aspiration was noted on the initial swallow. Therefore, the study was not completed. Although suboptimally assessed on this exam, there is severe narrowing at the gastroesophageal anastomosis. This is shown on chest CT of September 29, 2021. IMPRESSION: 1. Incomplete examination given a small amount of tracheal aspiration on the initial swallow. 2. Severe narrowing at the gastroesophageal anastomosis status post esophagectomy with gastric pull-up. This corresponds to the finding on chest CT of September 29, 2021. This could be due to a benign or malignant stricture. (1) Esophageal cancer Malignant neoplasm of esophagus location: unspecified location Qualified Code(s): C15.9 - Malignant neoplasm of esophagus, unspecified
--- NOTE | 2021-10-01 14:36 | Electrocardiogram Report ---
Test Reason : Blood Pressure : / mmHG Vent. Rate : 111 BPM Atrial Rate : 111 BPM P-R Int : 178 ms QRS Dur : 092 ms QT Int : 350 ms P-R-T Axes : 041 -46 093 degrees QTc Int : 476 ms Atrial-sensed ventricular-paced rhythm Abnormal ECG When compared with ECG of 19-JAN-2021 14:27, Vent. rate has increased BY 44 BPM Confirmed by Rayshawn Chapman ([id number]) on 10/01/2021 2:35:41 PM Referred By: Suman Tipton Confirmed By:Rayshawn Chapman
[2021-10-01 15:31] VITALS: BP 151/85; TEMP 98.4
--- NOTE | 2021-10-01 15:33 | Discharge Summary ---
Date of Service October 01, 2021 Admission HPI Per Admitting Provider Mr. Solano is a 76-year-old male with past medical history of esophageal cancer s/p esophagectomy in 2016 with radiation w/ recurrence in 2020, hypertension, GERD, hypothyroidism, sick sinus syndrome and A. fib s/p pacemaker in 2020, ankylosing spondylitis, and recent pericardial effusion [place] [facility] [place] who presents today with worsening dysphagia. Last night, patient had soup but regurgitated immediately. This morning, he had toast, which he also regurgitated. He tried Jell-O and water, however this was regurgitated as well. This prompted his presentation to ED for further evaluation. He has otherwise been in his normal state of health, reports he made more phlegm yesterday, but has resolved today. Due to tumor burden, unable to cough to clear phlegm. No fever or chills, SOB at rest, worsening chronic dyspnea on exertion, cough, palpitations, abdominal pain, nausea, vomiting outside the setting of food intake, dysuria, hematuria, increased frequency, diarrhea. Also reports constipation with last BM on week ago and a 15 minute episode of chest pain with radiation to jaw yesterday while doing leg lifts with PT. States this does occasionally happen to him, always resolves with rest. Principal Diagnosis Esophageal stricture at anastomosis Hx esophageal cancer dysphagia Discharge Exam General: A&Ox3. NAD. Cooperative. HEENT: Atraumatic, normocephalic. Uvula midline. No drooling, tongue protrudes midline. Right port present Pulm: CTAB A&P. -wheezes, -rales, -rhonchi. Symmetrical chest rise. No increase in work of breathing. No respiratory distress. Cardiac: RRR, -mrg. Radial pulses intact and symmetrical. Abdominal: Nontender, nondistended, soft. BS present. Discharge Data Allergies Allergy/AdvReac Type Severity Reaction Status Date / Time No Known Allergies Allergy Unknown Verified 09/29/21 15:10 Consultations 09/29/21 15:24 ED Decision to Admit Stat 09/30/21 16:09 Consult Cardiology Routine 10/01/21 15:07 Burn CD for patient Routine Procedures Performed Operation Date: 09/30/21 17:30 <No data on this case meets the specified criteria> Operation Date: 10/01/21 16:30 <No data on this case meets the specified criteria> Ordered Studies 09/29/21 16:14 CT abd pelvis IV con only Stat CT chest diagnostic w con Stat 10/01/21 08:43 FL barium swallow Urgent Hospital Course (1) Dysphagia: - Began 1 day prior to admission, patient regurgitated soup. Attempted to eat toast, Jell-O, and water this morning, all quickly regurgitated. Does not believe he choked or aspirated. Patient has a history of esophageal adenocarcinoma undergoing chemotherapy Has also seen ENT for evaluation of vocal cord dysfunction, and is pending outpatient follow-up for potential larygnoplasty - [facility] GI consulted, EGD potentially 10/01 pending cardiac evaluation - CT A/P ordered to r/o obstruction-no bowel obstruction, mild fecal retention noted. No metastatic disease identified, no inflammatory or infectious changes - IV Protonix 40 mg twice daily. Patient reports he would want a PEG tube if necessary and he were to have persistent dysphagia - on hep gtt for afib bridging, continued and hold 6 hours prior to any procedure Did discuss with gastroenterology. Performed a barium swallow which was limited by concern for aspiration but which did did show Severe narrowing at the gastroesophageal anastomosis status post esophagectomy with gastric pull-up. This corresponds to the finding on chest CT of September 29, 2021. This could be due to a benign or malignant stricture. Recommended that patient have seizure tertiary care due to elevated risk for the narrowing at his anastomosis site and concern for need for fluoroscopic guidance and potential higher level of care should patient have a complication/perforation. Called [facility] 10/01 a.m. and reviewed case. Patient has been accepted by Dr. Myers, bed available PM 10/01 Converted to [facility] for nutritional support (2) Chest pain: - Prior to admission had reported central chest pain that radiated to his jaw that went away 15 to 20 minutes later with rest. -No chest pain at time of admitting assessment or following up assessment. Patient reports he was seen for this and was told it may be due to a pinched nerve. Denies exertional chest pain - Atrial paced rhythm without territorial changes in ER. HS troponin--> 29.1 repeat 30.7. q6h trend peaked and downtrended - Prior Echo 08/27/21: Large circumferential effusion. s/p left thoractomy, pericardial window, and biopsy [place] [facility] [place]18[place]. - History of pericardial effusion, had thoracotomy at [facility] 2 weeks ago. TTE, no acute abnormalities and normal wall motion Report of chest pain developing 09/30, EKG with ST changes. At bedside patient reports he thinks this may have been a miscommunication, denies any chest pain radiating into his neck/shoulder or chest pressure or shortness of breath. Reports that he has had some pain when raising his arm above his head as previously noted, but has had no chest pain/pressure today or overnight. - 09/30 EKG: atrial sensed. No territorial ST segment elevations/depression. - on apixaban prior to admisison for afib, held in anticipation of EGD scheduli ng and converted to heparin gtt for bridging -DDx includes Chemo related - Cardiology consulted. No cardiac contraindications to procedure. Troponins likely 2/2 procedure/illness, not demand or ACS. No indications for further testing at this time. (3) Esophageal cancer: - S/P robotic assisted and open esophagectomy 09/09/2015. history of local recurrence x2. Now back on chemotherapy, FOLFIRI regimen q2wks - Patient has tumor pressing on vocal cords, has lost voice and ability to cough several months ago. - Takes OTC medication for management of secretions. - Chemo [id number], completed most recent course 09/30 via continuous infusion pump (4) Constipation: - Reports last BM was one week ago, CT a/p showed mild fecal retention. - Bisacodyl NE - May use fleet enema for constipation if no improvement with bisacodyl (5) Aspiration into respiratory tract: - When comparing CXR done today against outpt CXR yesterday - ? progression of developing consolidation in RLL -with increased secretions, 4 episodes of regurgitation,initial decision to cover for aspiration pneumonia with Unasyn. - CT-C: no evidence of PNA, abx d/james, pct neg - Follow clinically (6) Hypertension: - No longer taking medication for this. (7) Paroxysmal atrial fibrillation: - s/p permanent pacemaker 12/2020 due to concurrent SSS + a fib. -DOAC held on admit pending EGD - Converted to heparin gtt while pending EGD, hold when procedure scheduled/CC and may resume apixaban post procedure (8) Hypothyroidism: - N.p.o. - continue levothyroxine when tolerating p.o. intake. (9) Chronic GERD: - On Pepcid at home, will be on IV PPI per GI. (10) Ankylosing spondylitis: - Widespread arthralgias. Clinically stable. No new concerns. (11) B12 deficiency: - Continue B12 supplementation when tolerating p.o. intake. (12) Abnormal CT scan, chest: - Indeterminant 12 mm nodular density in the right middle lobe which may be related to adjacent atelectasis. This was not seen on prior examinations. - 3-4 month follow-up chest CT is recommended for reassessment. (13) Abnormal CT scan, kidney: - There are 2 indeterminant cortical lesions in the right kidney which may show postcontrast enhancement. This could represent complex cysts, with renal neoplasms not excluded. These lesions have increased in size as compared to 05/04/2020. - Renal protocol CT pending for further characterization, pending for following evaluation of issues above - Admit to med/tele. - SCDs, holding Eliquis now for planned EGD tomorrow. - Full code. Total Time Total Time Spent Total Time Spent (In Minutes): Time spend day of discharge 90 minutes including direct patient care, documentation, review of labs and images, and coordination of care. Discharge Plan Discharge Items Patient Disposition: Transfer Acute Care Hospital Reason For Visit: DYSPHAGIA Discharge Diagnosis: Dysphagia Esophageal stricture Activity: As commented below Non-emergency contact: Primary Care Provider Call non-emergency contact if: you have any medication questions Follow-up/Referrals: Suman Tipton MD [Primary Care Provider] - Diet: Nothing by Mouth Addtl Attending Provider Instructions: Dysphagia: Plan: - Began 1 day prior to admission, patient regurgitated soup. Attempted to eat toast, Jell-O, and water this morning, all quickly regurgitated. Does not believe he choked or aspirated. Patient has a history of esophageal adenocarcinoma undergoing chemotherapy Has also seen ENT for evaluation of vocal cord dysfunction, and is pending outpatient follow-up for potential larygnoplasty - [facility] GI consulted, EGD potentially 10/01 pending cardiac evaluation - CT A/P ordered to r/o obstruction-no bowel obstruction, mild fecal retention noted. No metastatic disease identified, no inflammatory or infectious changes - IV Protonix 40 mg twice daily. Patient reports he would want a PEG tube if necessary and he were to have persistent dysphagia - on hep gtt for afib bridging, continue and hold 6 hours prior to any procedure Did discuss with gastroenterology. Performed a barium swallow which was limited by concern for aspiration but which did did showSevere narrowing at the gastroesophageal anastomosis status post esophagectomy with gastric pull-up. This corresponds to the finding on chest CT of September 29, 2021. This could be due to a benign or malignant stricture. Recommended that patient have seizure tertiary care due to elevated risk for the narrowing at his anastomosis site and concern for need for fluoroscopic guidance and potential higher level of care should patient have a complication/perforation. Called [facility] 10/01 a.m. and reviewed case. Patient has been accepted by Dr. Myers. bed available for [facility] 10/01. Transferred for further care Converted to [facility] for nutritional support (2) Chest pain: Plan: - Prior to admission had reported central chest pain that radiated to his jaw that went away 15 to 20 minutes later with rest. -No chest pain at time of admitting assessment or following up assessment. Patient reports he was seen for this and was told it may be due to a pinched nerve. Denies exertional chest pain - Atrial paced rhythm without territorial changes in ER. HS troponin--> 29.1 repeat 30.7. Q6H trended, --> 57.5. repeat pending - Prior Echo 08/27/21: Large circumferential effusion. s/p left thoractomy, pericardial window, and [place] [facility] [place]. - History of pericardial effusion, had thoracotomy at [facility] 2 weeks ago. TTE, no acute abnormalities and normal wall motion Report of chest pain developing 09/30, EKG with ST changes. At bedside patient reports he thinks this may have been a miscommunication, denies any chest pain radiating into his neck/shoulder or chest pressure or shortness of breath. Reports that he has had some pain when raising his arm above his head as previously noted, but has had no chest pain/pressure today or overnight. - 09/30 EKG: atrial sensed. No territorial ST segment elevations/depression. - on apixaban prior to admisison for afib, held in anticipation of EGD scheduling and converted to heparin gtt for bridging -DDx includes Chemo related - Cardiology consulted. No cardiac contraindications to procedure. Troponins likely 2/2 procedure/illness, not demand or ACS. No indications for further testing at this time. (3) Esophageal cancer: Plan: - S/P robotic assisted and open esophagectomy 09/09/2015. history of local recurrence x2. Now back on chemotherapy, FOLFIRI regimen q2wks - Patient has tumor pressing on vocal cords, has lost voice and ability to cough several months ago. - Takes OTC medication for management of secretions. -Chemo [id number], completed most recent course 09/30 via continuous infusion pump (4) Constipation: Plan: - Reports last BM was one week ago, CT a/p showed mild fecal retention. - Bisacodyl NE - May use fleet enema for constipation if no improvement with bisacodyl (5) Aspiration into respiratory tract: Plan: - When comparing CXR done today against outpt CXR yesterday - ? progression of developing consolidation in RLL -with increased secretions, 4 episodes of regurgitation,initial decision to cover for aspiration pneumonia with Unasyn. - CT-C: no evidence of PNA, abx d/james, pct neg - Follow clinically (6) Hypertension: Plan: - No longer taking medication for this. (7) Paroxysmal atrial fibrillation: Plan: - s/p permanent pacemaker 12/2020 due to concurrent SSS + a fib. -DOAC held on admit pending EGD - Converted to heparin gtt while pending EGD, hold when procedure scheduled/CC and may resume apixaban post procedure (8) Hypothyroidism: Plan: - N.p.o. - continue levothyroxine when tolerating p.o. intake. (9) Chronic GERD: Plan: - On Pepcid at home, will be on IV PPI per GI. (10) Ankylosing spondylitis: Plan: - Widespread arthralgias. Clinically stable. No new concerns. (11) B12 deficiency: Plan: - Continue B12 supplementation when tolerating p.o. intake. (12) Abnormal CT scan, chest: Plan: - Indeterminant 12 mm nodular density in the right middle lobe which may be related to adjacent atelectasis. This was not seen on prior examinations. - 3-4 month follow-up chest CT is recommended for reassessment. (13) Abnormal CT scan, kidney: Plan: - There are 2 indeterminant cortical lesions in the right kidney which may show postcontrast enhancement. This could represent complex cysts, with renal neoplasms not excluded. These lesions have increased in size as compared to 05/04/2020. - Renal protocol CT pending for further characterization, pending for following evaluation of issues above Plan: - Admit to med/tele. - SCDs, holding Eliquis now for planned EGD tomorrow. - Full code. Pending Studies at Discharge: No Stand-Alone Forms: My [facility] Skilled Items Patient informed of condition?: Yes DNR: No Discharge Level of Care: Other Communicable Disease: No Discharge Prognosis: Stable Lines: Peripheral IV Urinary Catheter: No Medications and DC Order Prescriptions: Continued cyanocobalamin (vitamin B-12) 100 mcg tablet 100 mcg PO DAILY RF: 0 tramadol 50 mg tablet 50 mg PO Q8H PRN (Reason: Pain) RF: 0 Eliquis 5 mg tablet 5 mg PO BID RF: 0 sucralfate [Carafate] 1 gram tablet 1 g PO Q6H PRN (Reason: Gi Upset) RF: 0 pseudoephedrine-DM 30-15 mg/5 mL Liquid 5 ml PO Q6 PRN (Reason: Cough) RF: 0 famotidine 40 mg tablet 40 mg PO HS RF: 0 levothyroxine 75 mcg tablet 75 mcg PO DAILYBB RF: 0 Discharge Orders: Discharge Order (Routine); Ordered 10/01/21 Ordered By: Suman Benoit Admission Data Admit Date/Time: 09/29/21 16:42 Attending Provider: Suman Benoit Admit Provider: Suman Benoit Primary Care Provider: Suman Tipton Other Providers: Suman Benoit ; Mandeep Ann Coding Level of Care Code D/C DAY MANAGEMENT >30 MINS Diagnoses Dysphagia R13.10 Chest pain R07.9 Esophageal cancer C15.9 Malignant neoplasm of esophagus location: unspecified location Constipation K59.00 Aspiration into respiratory tract T17.908A Hypertension I10 Hypertension type: essential hypertension Paroxysmal atrial fibrillation I48.0 Hypothyroidism E03.9 Chronic GERD K21.9 Ankylosing spondylitis M45.6 Ankylosing spondylitis location: lumbar region B12 deficiency E53.[address] scan, chest R93.[address] scan, kidney R93.429
[2021-10-01 17:41] VITALS: PULSE 66
--- NOTE | 2021-10-01 19:25 | Electrocardiogram Report ---
Test Reason : Blood Pressure : / mmHG Vent. Rate : 072 BPM Atrial Rate : 072 BPM P-R Int : 182 ms QRS Dur : 094 ms QT Int : 420 ms P-R-T Axes : -02 -40 065 degrees QTc Int : 459 ms Atrial-sensed ventricular-paced rhythm Abnormal ECG When compared with ECG of 29-SEP-2021 16:51, Vent. rate has decreased BY 39 BPM Confirmed by Rayshawn Chapman ([id number]) on 10/01/2021 7:25:34 PM Referred By: Suman Tipton Confirmed By:Rayshawn Chapman
== END 2021-10-01 19:32 | disposition short-term general hospital (02) | DRG 392 ==
LOC: ED 14:22 → 2N 16:42 → UNDODISIN 10-01 17:41

== ENCOUNTER 2022-04-18 04:09 | Inpatient (IN) ==
[2022-04-18] MEDS ORDERED: PIPERACILLIN/TAZOBACTAM 4.5 GM/120 ML BAG IV ONE (04:30)
[2022-04-18] MEDS ORDERED: VANCOMYCIN HCL 1,500 MG in SODIUM CHLORIDE 0.9% 500 ML IV ONE (04:30)
[2022-04-18] MEDS ORDERED: SODIUM CHLORIDE 0.9% 1000ML 1,000 ML IV SCH (04:30)
[2022-04-18] MEDS ORDERED: VANCOMYCIN CONSULT ACTIVE PRN (04:30)
[2022-04-18] MEDS ORDERED: ALBUT/IPRATROP 3MG/0.5MG NEB 3 ML VIAL NEB STA (04:30)
[2022-04-18] MEDS ORDERED: ACETAMINOPHEN 1,000 MG/100 ML VIAL IV STA (04:33)
[2022-04-18] MEDS ORDERED: ONDANSETRON INJ 2 MG/ML 2 ML VIAL IV STA (04:35)
[2022-04-18 04:42] LABS: Basophils # (auto) 0.01 K/uL (0-0.2); Basophils % (auto) 0.1 %; Eosinophils # (auto) 0.05 K/uL (0-0.50); Eosinophils % (auto) 0.6 %; Hemoglobin 9.4 g/dl (14.0-18.0); Immature Granulocytes # (auto) 0.05 K/uL (0.00-0.02); Immature Granulocytes % (auto) 0.6 %; Lymphocytes % (auto) 3.5 %; Mean Corpuscular Hemoglobin 28.4 pg (25.0-34.0); Mean Corpuscular Hgb Conc 31.3 g/dL (32.0-36.0); Mean Corpuscular Volume 90.6 fL (80.0-100.0); Mean Platelet Volume 9.6 fL (9.4-12.4); Monocytes # (auto) 0.46 K/uL (0.24-0.82); Monocytes % (auto) 5.4 %; Neutrophils # (auto) 7.71 K/uL (1.4-6.5); Neutrophils % (auto) 89.8 %; Platelet Count 201 K/uL (130-400); RDW Coefficient of Variation 17.4 % (11.5-14.5); RDW Standard Deviation 55.6 fL (36.4-46.3); Red Blood Count 3.31 M/uL (4.63-6.08); White Blood Count 8.58 K/ul (4.8-10.8)
[2022-04-18 04:44] LABS: Appearance Urine Clear (Clear); Bilirubin Urine Negative (Negative); Blood Urine Negative (Negative); Color Urine Yellow; Glucose Urine UA Negative (Negative); Ketones Urine Negative (Negative); Leukocyte Esterase Urine Negative (Negative); Nitrite Urine Negative (Negative); Protein Urine Negative (Negative); Specific Gravity Urine 1.016 (1.000-1.030); Urobilinogen Urine Negative (Negative); pH Urine 6.5 (4.5-7.5)
[2022-04-18 05:03] LABS: INR 1.2 (0.9-1.1); Partial Thromboplastin Ratio 1.1; Partial Thromboplastin Time 31.6 Seconds (21.0-31.0)
[2022-04-18 05:12] LABS: Troponin I High Sensitivity 12.8 pg/ml (0-20)
[2022-04-18 05:14] LABS: Albumin Level 3.3 gm/dl (3.4-5.0); BUN Creatinine Ratio 24.1 (10-20); Bilirubin Direct 0.2 mg/dl (0-0.2); Bilirubin,Total 0.6 mg/dl (0.2-1.0); Calcium 8.6 mg/dl (8.5-10.1); Creatinine Clr Calc Pharmacy 70.7 ml/min; Est GFR (African American) 96.5 ml/min; Est GFR (Non-African American) 83.2 ml/min; Magnesium 1.9 mg/dl (1.7-2.4); Potassium 3.1 mmol/L (3.5-5.1)
[2022-04-18 05:34] LABS: Adenovirus PCR Not Detected (NotDetected); Bordetella parapertussis PCR Not Detected (NotDetected); Bordetella pertussis PCR Not Detected (NotDetected); Chlamydia pneumoniae PCR Not Detected (NotDetected); Coronavirus 229E PCR Not Detected (NotDetected); Coronavirus CoV-2 (COVID19)PCR Not Detected (NotDetected); Coronavirus HKU1 PCR Not Detected (NotDetected); Coronavirus NL63 PCR Not Detected (NotDetected); Coronavirus OC43PCR Not Detected (NotDetected); Human Metapneumovirus PCR Not Detected (NotDetected); Influenza A PCR Not Detected (NotDetected); Influenza B PCR Not Detected (NotDetected); Mycoplasma pneumoniae PCR Not Detected (NotDetected); Parainfluenza Virus 1 PCR Not Detected (NotDetected); Parainfluenza Virus 2 PCR Not Detected (NotDetected); Parainfluenza Virus 3 PCR Not Detected (NotDetected); Parainfluenza Virus 4 PCR Not Detected (NotDetected); Respiratory Syncytial VirusPCR Not Detected (NotDetected); Rhinovirus/Enterovirus PCR Not Detected (NotDetected)
[2022-04-18 05:38] LABS: Base Excess VBG 7.8 mEq/L; HCO3 VBG 32 mmol/L; Oxygen Saturation VBG < 60.0 %; PCO2 VBG 42 mmHg (38-50); PO2 VBG 27 mmHg; pH VBG 7.49 (7.36-7.41)
[2022-04-18] MEDS: SODIUM CHLORIDE 0.9% 1000ML 1,000 ML IV SCH ×3 (05:55→09:28)
--- NOTE | 2022-04-18 07:00 | Emergency Department Note ---
History of Present Illness General Chief complaint: Vomiting Stated complaint: VOMITNG Time Seen by Provider: 04/18/22 04:19 History of Present Illness This is a 76-year-old male presenting to the emergency department via EMS from home for evaluation of increased vomiting over the past 12 hours. The patient has an unfortunate history of esophageal cancer and receives chemotherapy every other week. The patient has some chronic vomiting because of the cancer, however there is significant concern that he had an aspiration event tonight. The patient was hypoxic for EMS and has had a wet cough for about the past 4 hours. He did have a fever for EMS at home of 101 F. The patient rates his discomfort an 12/29. Home Medications Medication Instructions Recorded Confirmed Type cyanocobalamin (vitamin B-12) 100 100 mcg PO DAILY 11/28/18 04/18/22 History mcg tablet pseudoephedrine-DM 30 mg-15 mg/5 5 ml PO Q6 PRN Cough 01/19/21 04/18/22 History mL oral liquid apixaban 5 mg tablet (Eliquis) 5 mg PO BID 03/30/21 04/18/22 History tramadol 50 mg tablet 50 mg PO Q8H PRN Pain 09/28/21 04/18/22 History ondansetron HCl 8 mg tablet 8 mg PO Q8H PRN NAUSEA/VOMITING 10/21/21 04/18/22 History prochlorperazine maleate 10 mg 10 mg PO Q6H PRN NAUSEA/VOMITING 10/21/21 04/18/22 History tablet (Compazine) levothyroxine 100 mcg tablet 100 mcg PO DAILY #90 tabs 12/17/21 04/18/22 Rx sucralfate 100 mg/mL oral 10 ml PO QID #420 mL 02/26/22 04/18/22 Rx suspension (Carafate) torsemide 10 mg tablet 10 mg PO QAM #10 tabs 03/07/22 04/18/22 Rx famotidine 40 mg tablet 40 mg PO HS 04/18/22 04/18/22 History Allergies Allergy/AdvReac Type Severity Reaction Status Date / Time No Known Allergies Allergy Unknown Verified 04/13/22 09:01 Past Med/Surg History Medical History Ankylosing spondylitis Arthritis Atrial fibrillation Chronic GERD Chronic osteoarthritis Elevated prostate specific antigen (PSA) Elevated prostate specific antigen (PSA) Enlarged prostate with lower urinary tract symptoms (LUTS) Esophageal cancer (04/07/15) Recurrence noted 06/02/2020 Fatigue Gastroparesis History of chemotherapy Oxaliplatin + Xeloda (started 05/25/15) History of radiation therapy 05/25/15 - 07/01/15 (Concurrent with chemo) received 5040cGy @ [facility] Hypertension Hypothyroidism Impaired fasting glucose Incomplete bladder emptying Obesity DEB (obstructive sleep apnea) Pacemaker Palpitations Port-A-Cath in place Right Restrictive lung disease Shortness of breath on exertion Sinus bradycardia Spinal stenosis Surgical History H/O colonoscopy H/O esophagectomy (09/09/15) Robotic-assisted minimally invasive [place] Esophagectomy (Kaushik Abarca - Dr. Martins/Araceli) History of endoscopy (06/02/20) Upper EUS with FNA of pariesophageal lymph nodes History of hernia repair inguinal History of lymph node biopsy Family History Father , Passed age 67 of [place] Myocardial infarction Mother , Passed age 52 of unknown cancer mets Diabetes Brother , Passed age 85 of unknown Alzheimer disease Myocardial infarction Sister No problems noted. Sister , Passed in 50's of Lymphoma No problems noted. Sister , Passed in 90's of natural causes No problems noted. Daughter Colon cancer, Onset Age: 46 Currently being treated Denies family history of Ovarian cancer Prostate cancer Breast cancer Lung cancer Stroke Social History Smoking Status: Never smoker Tobacco Type: Cigarettes packs per day: 1; Second Hand Exposure: Yes (Father smoked in home); Hx Alcohol Use: No Hx Substance Use: No Preferred Language: Maori Communication Ability: Effective Visual Impairment: Limited Hearing Ability: Hard of Hearing Inspector Glass Or Mirror Required: No Beliefs That Will Affect Care: None marital status: Current Living Situation: Spouse current occupational status: retired current occupation: Retired [id number] How many Children do You have: 1 Feels Safe at Home: Yes Childhood Exposure to Second-Hand Smoke: Yes (Father smoked in home ) caffeine: Yes (1-2 cups of coffee/day ) during the past year weight has: remained stable Dental Care, Regularly: No Physical Activity Frequency: Does not Exercise Seatbelt Use: always Sunscreen Use: Yes Assistive Devices: None Review of Systems A total of 10 systems reviewed and were otherwise negative Physical Exam Vital Signs Vital Signs - 24 hr 04/18/22 04:29 04/18/22 04:32 04/18/22 04:37 Temperature 37.8 C H Temperature Source Temporal Artery Scan Pulse Rate 101 H Pulse Rate [Finger] 120 H Respiratory Rate 20 12 Respiratory Effort / Characteristics Non-Labored Spontaneous Respiratory Depth Normal Blood Pressure [Right Arm] 133/95 Blood Pressure Mean [Right Arm] 107 Blood Pressure Position [Right Arm] Sitting Pulse Oximetry 95 95 Oxygen Delivery Method Nasal Cannula Room Air Oxygen Flow Rate 5 Sepsis Recent Fever Within 48 Hours Yes Sepsis New/Unexplained Change in Mental Status Yes Sepsis Action Taken by Nursing No Action Required 04/18/22 06:38 Temperature Temperature Source Pulse Rate Pulse Rate [Finger] 105 H Respiratory Rate 20 Respiratory Effort / Characteristics Non-Labored Spontaneous Respiratory Depth Normal Blood Pressure [Right Arm] 114/66 Blood Pressure Mean [Right Arm] 82 Blood Pressure Position [Right Arm] Sitting Pulse Oximetry 95 Oxygen Delivery Method Room Air Oxygen Flow Rate Sepsis Recent Fever Within 48 Hours Sepsis New/Unexplained Change in Mental Status Sepsis Action Taken by Nursing VITALS: Vitals are noted on the nurse's note and reviewed by myself. Vital signs with fever and tachycardia. GENERAL: Ill-appearing white male who is cooperative but appears in distress HEAD: Normocephalic atraumatic. HEART: Tachycardic rate LUNGS: Diffuse crackles and rhonchi throughout primarily on the right side lung small ABDOMEN: Positive normal bowel sounds x 4. Soft, nontender, without masses or organomegaly. No guarding or rebound tenderness. MUSCULOSKELETAL: Bilateral lower extremity edema noted NEURO: Patient was alert and oriented to person place and time. CN II through XII grossly intact. Course Administered Medications Albuterol (Albut/Ipratrop 3mg/0.5mg Neb 3 Ml Vial) 3 ml NEB QIDR [facility]; Protocol Stop: 05/18/22 10:59 Last Admin: 04/18/22 19:22 Dose: 3 ml Documented By: Admin: 04/18/22 15:19 Dose: 3 ml Documented By: Admin: 04/18/22 11:28 Dose: 3 ml Documented By: IRIS Ampicillin Sodium/Sulbactam Sodium 3,000 mg/ Sodium Chloride 108 mls @ 200 mls/hr IV Q6H [facility]; Protocol Stop: 04/25/22 11:59 Last Infusion: 04/18/22 19:57 Dose: 0 mls/hr Documented By: Admin: 04/18/22 19:21 Dose: 200 mls/hr Documented By: Infusion: 04/18/22 15:00 Dose: 0 mls/hr Documented By: Admin: 04/18/22 14:05 Dose: 200 mls/hr Documented By: NASRIN Pantoprazole Sodium 40 mg/ (Syringe) 10 mls @ 5 mls/min IV DAILY@1100 VIRGIE Stop: 05/18/22 10:59 Last Admin: 04/18/22 11:28 Dose: 5 mls/min Documented By: IRIS Lactated Ringer's (Lr) 1,000 mls @ 80 mls/hr IV .[id number] VIRGIE Stop: 05/18/22 19:44 Last Admin: 04/18/22 20:08 Dose: 80 mls/hr Documented By: ROBERT Sodium Chloride (Sodium Chlor 7% 4 Ml Neb) 4 ml NEB BIDR VIRGIE Stop: 05/18/22 10:09 Last Admin: 04/18/22 20:02 Dose: 4 ml Documented By: Admin: 04/18/22 11:53 Dose: 4 ml Documented By: EULOGIO Discontinued Medications Albuterol (Albut/Ipratrop 3mg/0.5mg Neb 3 Ml Vial) 3 ml NEB NOW STA; Protocol Stop: 04/18/22 04:31 Last Admin: 04/18/22 04:54 Dose: 3 ml Documented By: ETIENNE Sodium Chloride (Nss 1000ml) 1,000 mls @ 999 mls/hr IV .Q1H1M VIRGIE Stop: 04/18/22 05:30 Last Infusion: 04/18/22 06:55 Dose: 0 mls/hr Documented By: Admin: 04/18/22 04:50 Dose: 999 mls/hr Documented By: ETIENNE Vancomycin HCl 1,500 mg/ (Sodium Chloride) 530 mls @ 200 mls/hr IV NOW ONE Stop: 04/18/22 07:08 Last Admin: 04/18/22 05:55 Dose: 200 mls/hr Documented By: JE Piperacillin Sod/Tazobactam Sod (Zosyn) 4.5 gm in 120 mls @ 240 mls/hr IV NOW ONE Stop: 04/18/22 04:59 Last Infusion: 04/18/22 05:55 Dose: 0 mls/hr Documented By: Admin: 04/18/22 04:50 Dose: 240 mls/hr Documented By: ETIENNE Sodium Chloride (Nss 1000ml) 1,000 mls @ 999 mls/hr IV .Q1H1M VIRGIE Stop: 04/18/22 06:58 Last Infusion: 04/18/22 10:46 Dose: 0 mls/hr Documented By: Admin: 04/18/22 09:28 Dose: 999 mls/hr Documented By: Admin: 04/18/22 06:40 Dose: Not Given Documented By: Admin: 04/18/22 05:55 Dose: Not Given Documented By: ETIENNE Acetaminophen (Ofirmev) 1,000 mg in 100 mls @ 400 mls/hr IV NOW STA Stop: 04/18/22 04:47 Last Infusion: 04/18/22 05:09 Dose: 0 mls/hr Documented By: Admin: 04/18/22 04:50 Dose: 400 mls/hr Documented By: ETIENNE Potassium Chloride (K Mark / Wtr) 10 meq in 100 mls @ 100 mls/hr IV Q1H VIRGIE Stop: 04/18/22 13:29 Last Infusion: 04/18/22 13:57 Dose: 0 mls/hr Documented By: Admin: 04/18/22 12:57 Dose: 100 mls/hr Documented By: Infusion: 04/18/22 12:32 Dose: 0 mls/hr Documented By: Admin: 04/18/22 11:29 Dose: 100 mls/hr Documented By: IRIS Ondansetron HCl (Ondansetron Inj 2 Mg/Ml 2 Ml Vial) 4 mg IV NOW STA Stop: 04/18/22 04:36 Last Admin: 04/18/22 04:51 Dose: 4 mg Documented By: ETIENNE Critical Care Time I have personally spent greater than 30 minutes of critical care time in the direct management of this patient. This includes bedside care, interpretation of diagnostic studies, and testing, discussion with consultants, patient, and family members, and other required patient management activities. This 30 minutes is in excess of all separately billable procedures. Medical Decision Making Differential Diagnosis Differential diagnosis: Etiologies such as sepsis, aspiration pneumonia, viral syndrome, otitis, pharyngitis, pneumonia, influenza, meningitis, urinary tract infection, septic arthritis, soft tissue infectious process, intra-abdominal process, sepsis, bacteremia, as well as others were entertained. Laboratory Data Result diagrams: 04/18/22 04:25 04/18/22 04:25 Lab Results 04/18/22 04/18/22 04/18/22 Range/Units 04:25 04:25 04:25 WBC 8.58 (4.8-10.8) K/ul RBC 3.31 L (4.63-6.08) M/uL Hgb 9.4 L (14.0-18.0) g/dl Hct 30.0 L (40.1-51.0) % MCV 90.6 (80.0-100.0) fL MCH 28.4 (25.0-34.0) pg MCHC 31.3 L (32.0-36.0) g/dL RDW Std Deviation 55.6 H (36.4-46.3) fL RDW Coeff of Camilo 17.4 H (11.5-14.5) % Plt Count 201 (130-400) K/uL MPV 9.6 (9.4-12.4) fL Immature Gran % (Auto) 0.6 % Neut % (Auto) 89.8 % Lymph % (Auto) 3.5 % [place] % (Auto) 5.4 % Eos % (Auto) 0.6 % Baso % (Auto) 0.1 % Neut # (Auto) 7.71 H (1.4-6.5) K/uL Lymph # (Auto) 0.30 L (1.2-3.4) K/uL [place] # (Auto) 0.46 (0.24-0.82) K/uL Eos # (Auto) 0.05 (0-0.50) K/uL Baso # (Auto) 0.01 (0-0.2) K/uL Immature Gran # (Auto) 0.05 H (0.00-0.02) K/uL PT 13.0 H (9.0-12.0) Seconds INR 1.2 H (0.9-1.1) APTT 31.6 H (21.0-31.0) Seconds PTT Ratio 1.1 VBG pH (7.36-7.41) VBG pCO2 (38-50) mmHg VBG pO2 mmHg VBG HCO3 mmol/L VBG O2 Saturation % VBG Base Excess mEq/L Sodium 143 (136-145) mmol/L Potassium 3.1 L (3.5-5.1) mmol/L Chloride 108 H (98-107) mmol/L Carbon Dioxide 26 (21-32) mmol/L Anion Gap 9 (3-11) BUN 21 (6-23) mg/dl Creatinine 0.87 (0.6-1.4) mg/dl Est Cr Clr Drug Dosing 70.7 ml/min Est GFR ( Amer) 96.5 ml/min Est GFR (Non-Af Amer) 83.2 ml/min BUN/Creatinine Ratio 24.1 H (10-20) Glucose 136 H (70-99(Fasting)) mg/dl Lactate (0.4-2.0) mmol/L Calcium 8.6 (8.5-10.1) mg/dl Magnesium 1.9 (1.7-2.4) mg/dl Total Bilirubin 0.6 (0.2-1.0) mg/dl Direct Bilirubin 0.2 (0-0.2) mg/dl AST 10 L (13-39) U/L ALT 11 (7-52) U/L Alkaline Phosphatase 59 (34-104) U/L Troponin I High Sens 12.8 D (0-20) pg/ml B-Natriuretic Peptide (0-100) pg/ml Total Protein 6.0 (6.0-8.3) gm/dl Albumin 3.3 L (3.4-5.0) gm/dl Procalcitonin (0-0.5) ng/ml Urine Color Urine Appearance (Clear) Urine pH (4.5-7.5) Ur Specific Dovray (1.000-1.030) Urine Protein (Negative) Urine Glucose (UA) (Negative) Urine Ketones (Negative) Urine Blood (Negative) Urine Nitrite (Negative) Urine Bilirubin (Negative) Urine Urobilinogen (Negative) Ur Leukocyte Esterase (Negative) Adenovirus (PCR) (NotDetected) B. pertussis DNA (PCR) (NotDetected) B.parapertussis DNA PCR (NotDetected) C. pneumoniae DNA (PCR) (NotDetected) Coronavirus OC43 (PCR) (NotDetected) Coronavirus HKU1 (PCR) (NotDetected) Coronavirus 229E (PCR) (NotDetected) SARS-CoV-2 (PCR) (NotDetected) Coronavirus NL63 (PCR) (NotDetected) Human Metapneumovir PCR (NotDetected) Influenza Type A (PCR) (NotDetected) Influenza Type B (PCR) (NotDetected) M. pneumoniae (PCR) (NotDetected) Parainfluenza 1 (PCR) (NotDetected) Parainfluenza 2 (PCR) (NotDetected) Parainfluenza 3 (PCR) (NotDetected) Parainfluenza 4 (PCR) (NotDetected) RSV (PCR) (NotDetected) Entero/Rhino (PCR) (NotDetected) 04/18/22 04/18/22 04/18/22 Range/Units 04:25 04:25 04:30 WBC (4.8-10.8) K/ul RBC (4.63-6.08) M/uL Hgb (14.0-18.0) g/dl Hct (40.1-51.0) % MCV (80.0-100.0) fL MCH (25.0-34.0) pg MCHC (32.0-36.0) g/dL RDW Std Deviation (36.4-46.3) fL RDW Coeff of Camilo (11.5-14.5) % Plt Count (130-400) K/uL MPV (9.4-12.4) fL Immature Gran % (Auto) % Neut % (Auto) % Lymph % (Auto) % [place] % (Auto) % Eos % (Auto) % Baso % (Auto) % Neut # (Auto) (1.4-6.5) K/uL Lymph # (Auto) (1.2-3.4) K/uL [place] # (Auto) (0.24-0.82) K/uL Eos # (Auto) (0-0.50) K/uL Baso # (Auto) (0-0.2) K/uL Immature Gran # (Auto) (0.00-0.02) K/uL PT (9.0-12.0) Seconds INR (0.9-1.1) APTT (21.0-31.0) Seconds PTT Ratio VBG pH (7.36-7.41) VBG pCO2 (38-50) mmHg VBG pO2 mmHg VBG HCO3 mmol/L VBG O2 Saturation % VBG Base Excess mEq/L Sodium (136-145) mmol/L Potassium (3.5-5.1) mmol/L Chloride (98-107) mmol/L Carbon Dioxide (21-32) mmol/L Anion Gap (3-11) BUN (6-23) mg/dl Creatinine (0.6-1.4) mg/dl Est Cr Clr Drug Dosing ml/min Est GFR ( Amer) ml/min Est GFR (Non-Af Amer) ml/min BUN/Creatinine Ratio (10-20) Glucose (70-99(Fasting)) mg/dl Lactate 1.7 (0.4-2.0) mmol/L Calcium (8.5-10.1) mg/dl Magnesium (1.7-2.4) mg/dl Total Bilirubin (0.2-1.0) mg/dl Direct Bilirubin (0-0.2) mg/dl AST (13-39) U/L ALT (7-52) U/L Alkaline Phosphatase (34-104) U/L Troponin I High Sens (0-20) pg/ml B-Natriuretic Peptide (0-100) pg/ml Total Protein (6.0-8.3) gm/dl Albumin (3.4-5.0) gm/dl Procalcitonin 0.07 (0-0.5) ng/ml Urine Color Yellow Urine Appearance Clear (Clear) Urine pH 6.5 (4.5-7.5) Ur Specific Dovray 1.016 (1.000-1.030) Urine Protein Negative (Negative) Urine Glucose (UA) Negative (Negative) Urine Ketones Negative (Negative) Urine Blood Negative (Negative) Urine Nitrite Negative (Negative) Urine Bilirubin Negative (Negative) Urine Urobilinogen Negative (Negative) Ur Leukocyte Esterase Negative (Negative) Adenovirus (PCR) (NotDetected) B. pertussis DNA (PCR) (NotDetected) B.parapertussis DNA PCR (NotDetected) C. pneumoniae DNA (PCR) (NotDetected) Coronavirus OC43 (PCR) (NotDetected) Coronavirus HKU1 (PCR) (NotDetected) Coronavirus 229E (PCR) (NotDetected) SARS-CoV-2 (PCR) (NotDetected) Coronavirus NL63 (PCR) (NotDetected) Human Metapneumovir PCR (NotDetected) Influenza Type A (PCR) (NotDetected) Influenza Type B (PCR) (NotDetected) M. pneumoniae (PCR) (NotDetected) Parainfluenza 1 (PCR) (NotDetected) Parainfluenza 2 (PCR) (NotDetected) Parainfluenza 3 (PCR) (NotDetected) Parainfluenza 4 (PCR) (NotDetected) RSV (PCR) (NotDetected) Entero/Rhino (PCR) (NotDetected) 04/18/22 04/18/22 04/18/22 Range/Units 04:30 05:18 05:18 WBC (4.8-10.8) K/ul RBC (4.63-6.08) M/uL Hgb (14.0-18.0) g/dl Hct (40.1-51.0) % MCV (80.0-100.0) fL MCH (25.0-34.0) pg MCHC (32.0-36.0) g/dL RDW Std Deviation (36.4-46.3) fL RDW Coeff of Camilo (11.5-14.5) % Plt Count (130-400) K/uL MPV (9.4-12.4) fL Immature Gran % (Auto) % Neut % (Auto) % Lymph % (Auto) % [place] % (Auto) % Eos % (Auto) % Baso % (Auto) % Neut # (Auto) (1.4-6.5) K/uL Lymph # (Auto) (1.2-3.4) K/uL [place] # (Auto) (0.24-0.82) K/uL Eos # (Auto) (0-0.50) K/uL Baso # (Auto) (0-0.2) K/uL Immature Gran # (Auto) (0.00-0.02) K/uL PT (9.0-12.0) Seconds INR (0.9-1.1) APTT (21.0-31.0) Seconds PTT Ratio VBG pH 7.49 H (7.36-7.41) VBG pCO2 42 (38-50) mmHg VBG pO2 27 mmHg VBG HCO3 32 mmol/L VBG O2 Saturation < 60.0 % VBG Base Excess 7.8 mEq/L Sodium (136-145) mmol/L Potassium (3.5-5.1) mmol/L Chloride (98-107) mmol/L Carbon Dioxide (21-32) mmol/L Anion Gap (3-11) BUN (6-23) mg/dl Creatinine (0.6-1.4) mg/dl Est Cr Clr Drug Dosing ml/min Est GFR ( Amer) ml/min Est GFR (Non-Af Amer) ml/min BUN/Creatinine Ratio (10-20) Glucose (70-99(Fasting)) mg/dl Lactate (0.4-2.0) mmol/L Calcium (8.5-10.1) mg/dl Magnesium (1.7-2.4) mg/dl Total Bilirubin (0.2-1.0) mg/dl Direct Bilirubin (0-0.2) mg/dl AST (13-39) U/L ALT (7-52) U/L Alkaline Phosphatase (34-104) U/L Troponin I High Sens (0-20) pg/ml B-Natriuretic Peptide 250 H (0-100) pg/ml Total Protein (6.0-8.3) gm/dl Albumin (3.4-5.0) gm/dl Procalcitonin (0-0.5) ng/ml Urine Color Urine Appearance (Clear) Urine pH (4.5-7.5) Ur Specific Dovray (1.000-1.030) Urine Protein (Negative) Urine Glucose (UA) (Negative) Urine Ketones (Negative) Urine Blood (Negative) Urine Nitrite (Negative) Urine Bilirubin (Negative) Urine Urobilinogen (Negative) Ur Leukocyte Esterase (Negative) Adenovirus (PCR) Not Detected (NotDetected) B. pertussis DNA (PCR) Not Detected (NotDetected) B.parapertussis DNA PCR Not Detected (NotDetected) C. pneumoniae DNA (PCR) Not Detected (NotDetected) Coronavirus OC43 (PCR) Not Detected (NotDetected) Coronavirus HKU1 (PCR) Not Detected (NotDetected) Coronavirus 229E (PCR) Not Detected (NotDetected) SARS-CoV-2 (PCR) Not Detected (NotDetected) Coronavirus NL63 (PCR) Not Detected (NotDetected) Human Metapneumovir PCR Not Detected (NotDetected) Influenza Type A (PCR) Not Detected (NotDetected) Influenza Type B (PCR) Not Detected (NotDetected) M. pneumoniae (PCR) Not Detected (NotDetected) Parainfluenza 1 (PCR) Not Detected (NotDetected) Parainfluenza 2 (PCR) Not Detected (NotDetected) Parainfluenza 3 (PCR) Not Detected (NotDetected) Parainfluenza 4 (PCR) Not Detected (NotDetected) RSV (PCR) Not Detected (NotDetected) Entero/Rhino (PCR) Not Detected (NotDetected) Imaging Data Radiologist's Impression: Chest X-Ray 04/18/22 04:31 SINGLE VIEW CHEST CLINICAL HISTORY: Sepsis. FINDINGS: An AP, portable, upright chest radiograph is compared to chest x-ray and chest CT dated 02/26/2022. A right internal jugular central venous infusion port is in place. A 2-lead cardiac pacemaker is unchanged in position. The heart is enlarged noting atherosclerotic calcification of the thoracic aorta. The pulmonary vasculature is noncongested. Chronic interstitial thickening is similar to previous. There is a right pleural effusion with right basilar airspace consolidation. Minimal opacities are seen at the left lung base. No pneumothorax is seen. The skeletal structures are osteopenic. The bony thorax is grossly intact. Arthritic change is seen in the shoulders. IMPRESSION: 1. There is right lower lobe consolidation and a small right pleural effusion. C orrelate clinically for evidence of pneumonia/aspiration pneumonitis. Radiographic follow-up to resolution is recommended. 2. Cardiomegaly and cardiac pacemaker without radiographic evidence of kassy estive failure ACT 112: Negative or not required by law. Electronically signed by: Christopher Rubin M.D. 04/18/2022 7:[address] 04/18/22 06:12 CT SCAN OF THE CHEST WITHOUT IV CONTRAST CLINICAL HISTORY: Aspiration. Esophageal cancer. COMPARISON STUDY: Chest x-ray dated 04/18/2022. Chest CT dated 02/26/2022. TECHNIQUE: CT scan of the thorax was performed from the thoracic inlet to the upper abdomen. Images are reviewed in the axial, sagittal, and coronal planes. IV contrast was not administered for this examination as per the referring clinician. A dose lowering technique was utilized adhering to the principles of ALARA. CT DOSE: 376.32 mGy.cm FINDINGS: Thyroid: Atrophic and heterogeneous. Thoracic aorta: There is moderate atherosclerotic calcification of the thoracic aorta, which is normal in caliber and demonstrates standard 3-vessel arch anatomy. Heart: A right internal jugular central venous infusion port is in place. A c ardiac pacemaker is present in the left chest wall. The heart is enlarged noting a small pericardial effusion. The coronary arteries are densely calcified. Lungs and pleural spaces: There are small to moderate right and trace left pleural effusions. Loculated fluid is seen along the right major fissure. There is bibasilar airspace consolidation, right significantly greater than left. Minimal patchy consolidation is also seen in the upper lobes. There are scattered calcified granulomas. Intralobular septal thickening is noted in the lower lobes. Layering secretions are seen within the trachea. A 3 cm spiculated density is again seen in the right middle lobe on image #[id number]. Mediastinum: Mildly enlarged mediastinal lymph nodes measure up to 12 mm in short axis. Cassidy: Not well assessed without IV contrast. Axillae: There is no axillary lymphadenopathy. Upper abdomen: There is a [id number] hiatal hernia. A 3.4 cm simple cyst is noted in the left lobe of liver. Additional subcentimeter hepatic hypodensities also likely represent cysts but are too small for definitive characterization. A 12 mm cyst is noted in the right kidney. Esophagus: Postsurgical change is seen from esophagectomy with gastric pull- through procedure. The esophagus/gastric pull-through is diffusely thick walled. A stent is present in the upper esophagus at the level of the thoracic inlet. There is mild inflammation seen around the upper esophagus at the level of the stent. The esophagus/pull-through is dilated and filled with fluid to the level of the thoracic inlet. Skeletal structures: The skeletal structures are osteopenic. Degenerative change is noted in the shoulders and thoracic spine. There is mild hyperkyphosis. No lytic or blastic bony lesions are seen. IMPRESSION: 1. Airspace consolidation is seen at both lung bases, right significantly greater than left. The appearance is typical for pneumonia/aspiration pneumonitis and clinical correlation will be required. 2. Right larger than left pleural effusions. 3. Cardiomegaly and cardiac pacemaker. Intralobular septal thickening in the lower lobes may represent acute versus chronic congestive change and clinical correlation will be required. 4. Postsurgical change from esophagectomy and gastric pull-through, with an esophageal stent at the level of the thoracic inlet. There is nonspecific inflammation around the stent. Clinical correlation required. 5. The remaining esophagus and gastric pull-through appears diffusely thick- walled. Correlate clinically for evidence of gastritis/esophagitis. 6. The gastric pull-through/esophagus is distended and filled with fluid to the level the thoracic inlet. Note that this places the patient at risk for aspiration. 7. Numerous mildly enlarged mediastinal lymph nodes are nonspecific and similar to previous. 8. An approximately 3 cm indeterminate spiculated lesion in the right middle lobe is similar to previous. 9. Additional findings as above. ACT 112: Negative or not required by law. Electronically signed by: Christopher Rubin M.D. 04/18/2022 7:56 AM ECG Data Attestation: I personally reviewed and interpreted this ECG as follows: Indication: + SOB/dyspnea Additional Comments: Atrial-sensed ventricular-paced rhythm @112 bpm Abnormal ECG When compared with ECG of 26-FEB-2022 12:30, Premature ventricular complexes are no longer Present Vent. rate has increased BY 23 BPM MDM Narrative Physical exam and history were performed. Nursing notes, EMR, and Medication List were personally reviewed. Patient appears to have cough and shortness of breath symptoms bringing him to the ER. He appears in significant distress on arrival and presentation is very concerning. He is tachycardic in the 120s and 130s with work of breathing. The patient's port was accessed. Labs were obtained. Culture was gathered. X-ray and EKG performed. The patient was immediately started on vancomycin and Zosyn. Patient was given a DuoNeb and IV Tylenol. He was hydrated with normal saline, however this was at a lower rate than typical for sepsis as he is retaining fluid. An order was placed for continuous cardiac monitoring. The monitor shows a rate of 102 with sinus tachycardic rhythm. Patient's blood work is as above and was reviewed. He does not have a signific antly elevated white blood cell count, gross anemia, bandemia, or significant electrolyte imbalance. Transaminases are not diagnostic. Labs overall are reassuring, however I suspect they are artificially normal based on the patient's chemotherapy regimen and his clinical presentation. X-ray shows findings consistent with an aspiration pneumonia. BNP is slightly elevated suggesting some element of CHF. On reevaluation he did feel improved after the DuoNeb. The patient does not seem well for discharge home. The case was discussed with the on-call hospitalist team who agreed to evaluate the patient here in the ER. Please see their dictation for further patient course, plan, and disposition. The chart was completed utilizing [email or web address] Speech Voice Recognition Software. Grammatical errors, random word insertions, pronoun errors, and incomplete sentences are an occasional consequence of this system due to software limitations, ambient noise, and hardware issues. Any formal questions or concerns about the content, text, or information contained within the body of this dictation should be directly addressed to the provider for clarification. . Impression & Plan Aspiration pneumonia, Esophageal cancer, Aspiration into respiratory tract, Patient on antineoplastic chemotherapy regimen Discharge Plan Visit Data Chief Complaint: Vomiting Stated Complaint: VOMITNG ED Provider: Radha Burton ED Midlevel Provider: Fede Teran Discharge Problem: Aspiration pneumonia, Esophageal cancer, Aspiration into respiratory tract, Patient on antineoplastic chemotherapy regimen Patient Disposition: Admitted As Inpatient Discharge Instructions Interventions: ED Discharge Assessment Last Done: 04/18/22 09:49
--- NOTE | 2022-04-18 07:31 | XRay Report ---
SINGLE VIEW CHEST CLINICAL HISTORY: Sepsis. FINDINGS: An AP, portable, upright chest radiograph is compared to chest x-ray and chest CT dated 02/26/2022. A right internal jugular central venous infusion port is in place. A 2-lead cardiac pacemaker is unchanged in position. The heart is enlarged noting atherosclerotic calcification of the thoracic aorta. The pulmonary vasculature is noncongested. Chronic interstitial thickening is similar to prev ious. There is a right pleural effusion with right basilar airspace consolidation. Minimal opacities are seen at the left lung base. No pneumothorax is seen. The skeletal structures are osteopenic. The bony thorax is grossly intact. Arthritic change is seen in the shoulders. IMPRESSION: 1. There is right lower lobe consolidation and a small right pleural effusion. Correlate clinically f or evidence of pneumonia/aspiration pneumonitis. Radiographic follow-up to resolution is recommended. 2. Cardiomegaly and cardiac pacemaker without radiographic evidence of congestive failure ACT 112: Negative or not required by law. Electronically signed by: Christopher Rubin M.D. 04/18/2022 7:30 AM
--- NOTE | 2022-04-18 07:46 | Emergency Department Note ---
ED Visit Note I was consulted by the Advanced Practice Provider. I saw the patient personally and performed a substantive portion of the visit. This includes aspects of the HPI, MDM, diagnostic interpretations, and disposition/plan. .
--- NOTE | 2022-04-18 07:58 | CT Scan Report ---
CT SCAN OF THE CHEST WITHOUT IV CONTRAST CLINICAL HISTORY: Aspiration. Esophageal cancer. COMPARISON STUDY: Chest x-ray dated 04/18/2022. Chest CT dated 02/26/2022. TECHNIQUE: CT scan of the thorax was performed from the thoracic inlet to the upper abdomen. Images are reviewed in the axial, sagittal, and coronal planes. IV contrast was not administered for this ex amination as per the referring clinician. A dose lowering technique was utilized adhering to the chavo Leblanc. CT DOSE: 376.32 mGy.cm FINDINGS: Thyroid: Atrophic and heterogeneous. Thoracic aorta: There is moderate atherosclerotic calcification of the thoracic aorta, which is kim l in caliber and demonstrates standard 3-vessel arch anatomy. Heart: A right internal jugular central venous infusion port is in place. A cardiac pacemaker is pres ent in the left chest wall. The heart is enlarged noting a small pericardial effusion. The coronary a rteries are densely calcified. Lungs and pleural spaces: There are small to moderate right and trace left pleural effusions. Loculat ed fluid is seen along the right major fissure. There is bibasilar airspace consolidation, right sign ificantly greater than left. Minimal patchy consolidation is also seen in the upper lobes. There are scattered calcified granulomas. Intralobular septal thickening is noted in the lower lobes. Layering secretions are seen within the trachea. A 3 cm spiculated density is again seen in the right middle l obe on image #176. Mediastinum: Mildly enlarged mediastinal lymph nodes measure up to 12 mm in short axis. Cassidy: Not well assessed without IV contrast. Axillae: There is no axillary lymphadenopathy. Upper abdomen: There is a [id number]-[id number] hiatal hernia. A 3.4 cm simple cyst is noted in the left lobe of liver. Additional subcentimeter hepatic hypodensities also likely represent cysts but are too small for definitive characterization. A 12 mm cyst is noted in the right kidney. Esophagus: Postsurgical change is seen from esophagectomy with gastric pull-through procedure. The es ophagus/gastric pull-through is diffusely thick walled. A stent is present in the upper esophagus at the level of the thoracic inlet. There is mild inflammation seen around the upper esophagus at the le cipriano of the stent. The esophagus/pull-through is dilated and filled with fluid to the level of the tho racic inlet. Skeletal structures: The skeletal structures are osteopenic. Degenerative change is noted in the shou lders and thoracic spine. There is mild hyperkyphosis. No lytic or blastic bony lesions are seen. IMPRESSION: 1. Airspace consolidation is seen at both lung bases, right significantly greater than left. The appe arance is typical for pneumonia/aspiration pneumonitis and clinical correlation will be required. 2. Right larger than left pleural effusions. 3. Cardiomegaly and cardiac pacemaker. Intralobular septal thickening in the lower lobes may represen t acute versus chronic congestive change and clinical correlation will be required. 4. Postsurgical change from esophagectomy and gastric pull-through, with an esophageal stent at the l evel of the thoracic inlet. There is nonspecific inflammation around the stent. Clinical correlation required. 5. The remaining esophagus and gastric pull-through appears diffusely thick-walled. Correlate clinica lly for evidence of gastritis/esophagitis. 6. The gastric pull-through/esophagus is distended and filled with fluid to the level the thoracic in let. Note that this places the patient at risk for aspiration. 7. Numerous mildly enlarged mediastinal lymph nodes are nonspecific and similar to previous. 8. An approximately 3 cm indeterminate spiculated lesion in the right middle lobe is similar to previ ous. 9. Additional findings as above. ACT 112: Negative or not required by law. Electronically signed by: Christopher Rubin M.D. 04/18/2022 7:56 AM
--- NOTE | 2022-04-18 08:28 | History & Physical Report ---
Date of Service April 18, 2022 Assessment & Plan (1) Aspiration pneumonia: Plan: Biofire PCR negative. History and CT consistent with aspiration pneumonia. Consult gastroenterology - due to esophageal stent Speech and language consult Unasyn 3 g IV every 6 hourly MRSA nose swab -if negative can discontinue vancomycin Duonebs QID Hypertonic saline NEB BID Flutter valve, incentive spirometer (2) Paroxysmal atrial fibrillation: Plan: Hold Eliquis pending GI evaluation for possible intervention (3) Esophageal cancer: Plan: Consult GI as above (4) Hypertension: Plan: Holding torsemide given NPO status (5) Chronic GERD: Plan: Switch famotidine for IV pantoprazole 40mg IV daily Carafate on hold due to NPO Plan VTE Prophylaxis - Deferred pending GI evaluation Diet - NPO Disposition - admit to med/tele Admission and Anticipated Discharge Date Admission Date: April 18, 2022 History of Present Illness Chief Complaint: Shortness of breath, vomiting Primary Care Provider: Suman Tipton MD Wong Solano is a 76-year-old male who presents to the ER with increased vomiting, shortness of breath and wheezing since 10:30 PM last night. He has known history of esophageal cancer with concern for aspiration. Reportedly hypoxic in EMS however currently saturating at 95% on room air. He has a chronic dry cough but coughing and spitting up mucus is new. Cam on suddenly, no specific change in foods. No dysphagia. He has odynophagia since his esophageal stent was placed in September at [facility] but this is no worse than usual. He currently is on chemotherapy for his esophageal cancer [facility] with [facility] Coyle. He denies any fever or chills. Allergies Allergy/AdvReac Type Severity Reaction Status Date / Time No Known Allergies Allergy Unknown Verified 04/13/22 09:01 Home Medications Medication Instructions Recorded Confirmed Type cyanocobalamin (vitamin B-12) 100 100 mcg PO DAILY 11/28/18 04/08/22 History mcg tablet pseudoephedrine-DM 30 mg-15 mg/5 5 ml PO Q6 PRN Cough 01/19/21 04/08/22 History mL oral liquid apixaban 5 mg tablet (Eliquis) 5 mg PO BID 03/30/21 04/18/22 History tramadol 50 mg tablet 50 mg PO Q8H PRN Pain 09/28/21 04/18/22 History ondansetron HCl 8 mg tablet 8 mg PO Q8H PRN NAUSEA/VOMITING 10/21/21 04/08/22 History prochlorperazine maleate 10 mg 10 mg PO Q6H PRN NAUSEA/VOMITING 10/21/21 04/08/22 History tablet (Compazine) levothyroxine 100 mcg tablet 100 mcg PO DAILY #90 tabs 12/17/21 04/08/22 Rx sucralfate 100 mg/mL oral 10 ml PO QID #420 mL 02/26/22 04/08/22 Rx suspension (Carafate) torsemide 10 mg tablet 10 mg PO QAM #10 tabs 03/07/22 04/08/22 Rx famotidine 40 mg tablet 40 mg PO HS 04/18/22 04/18/22 History Past Med/Surg History Medical History Ankylosing spondylitis Arthritis Atrial fibrillation Chronic GERD Chronic osteoarthritis Elevated prostate specific antigen (PSA) Elevated prostate specific antigen (PSA) Enlarged prostate with lower urinary tract symptoms (LUTS) Esophageal cancer (04/07/15) Recurrence noted 06/02/2020 Fatigue Gastroparesis History of chemotherapy Oxaliplatin + Xeloda (started 05/25/15) History of radiation therapy 05/25/15 - 07/01/15 (Concurrent with chemo) received 5040cGy @ [facility] Hypertension Hypothyroidism Impaired fasting glucose Incomplete bladder emptying Obesity DEB (obstructive sleep apnea) Pacemaker Palpitations Port-A-Cath in place Right Restrictive lung disease Shortness of breath on exertion Sinus bradycardia Spinal stenosis Surgical History H/O colonoscopy H/O esophagectomy (09/09/15) Robotic-assisted minimally invasive [place] Esophagectomy (Kaushik Martins/Araceli) History of endoscopy (06/02/20) Upper EUS with FNA of pariesophageal lymph nodes History of hernia repair inguinal History of lymph node biopsy Family History Father , Passed age 67 of [place] Myocardial infarction Mother , Passed age 52 of unknown cancer mets Diabetes Brother , Passed age 85 of unknown Alzheimer disease Myocardial infarction Sister No problems noted. Sister , Passed in 50's of Lymphoma No problems noted. Sister , Passed in 90's of natural causes No problems noted. Daughter Colon cancer, Onset Age: 46 Currently being treated Denies family history of Ovarian cancer Prostate cancer Breast cancer Lung cancer Stroke Social History Smoking Status: Never smoker Tobacco Type: Cigarettes packs per day: 1; Second Hand Exposure: Yes (Father smoked in home); Hx Alcohol Use: No Hx Substance Use: No Preferred Language: Welsh Communication Ability: Effective Visual Impairment: Limited Hearing Ability: Hard of Hearing Freight Inspector Required: No Beliefs That Will Affect Care: None marital status: Current Living Situation: Spouse current occupational status: retired current occupation: Retired [employer] How many Children do You have: 1 Feels Safe at Home: Yes Childhood Exposure to Second-Hand Smoke: Yes (Father smoked in home ) caffeine: Yes (1-2 cups of coffee/day ) during the past year weight has: remained stable Dental Care, Regularly: No Physical Activity Frequency: Does not Exercise Seatbelt Use: always Sunscreen Use: Yes Assistive Devices: None Review of Systems Review of Systems: All systems reviewed & are unremarkable except as noted in Subjective Physical Exam Constitutional: WD/WN, vitals as above Respiratory: normal respiratory effort Auscultation: + diminished lung sounds (bibasal), + rhonchi (bilateral anteriorly) and + wheezes (expiratory) Cardiovascular: Rate/Rhythm: regular rate and regular rhythm Heart Sounds: no murmur Extremities: + pedal edema (3+ b/l equal) Gastrointestinal (Abdomen): normal bowel sounds, soft, nontender, no hepatosplenomegaly Musculoskeletal: no cyanosis or clubbing, extremities motor strength 5/5 Skin: no rashes, warm and dry Left leg dressing Coban wrap removed with one small <1cm stage 2 ulcer but no cellulitis Neurologic: moves all extremities and awake; not confused Psychiatric: A+Ox3, euthymic affect Results & Data Results & Data ([facility]) Vital Signs (Past 12 Hours) Vital Signs Temp Pulse Pulse Resp BP BP Pulse Ox 04/18/22 07:30 81 12 109/65 94 04/18/22 06:38 105 H 20 114/66 95 04/18/22 04:37 101 H 12 95 04/18/22 04:32 37.8 C H 120 H 20 133/95 95 O2 Del Method O2 Flow Rate 04/18/22 07:30 Room Air 04/18/22 06:38 Room Air 04/18/22 04:37 Room Air 04/18/22 04:32 Nasal Cannula 5 Laboratory Results Abnormal lab results 04/18/22 04/18/22 04/18/22 Range/Units 04:25 04:25 04:25 RBC 3.31 L (4.63-6.08) M/uL Hgb 9.4 L (14.0-18.0) g/dl Hct 30.0 L (40.1-51.0) % MCHC 31.3 L (32.0-36.0) g/dL RDW Std Deviation 55.6 H (36.4-46.3) fL RDW Coeff of Camilo 17.4 H (11.5-14.5) % Neut # (Auto) 7.71 H (1.4-6.5) K/uL Lymph # (Auto) 0.30 L (1.2-3.4) K/uL Immature Gran # (Auto) 0.05 H (0.00-0.02) K/uL PT 13.0 H (9.0-12.0) Seconds INR 1.2 H (0.9-1.1) APTT 31.6 H (21.0-31.0) Seconds VBG pH (7.36-7.41) Potassium 3.1 L (3.5-5.1) mmol/L Chloride 108 H (98-107) mmol/L BUN/Creatinine Ratio 24.1 H (10-20) Glucose 136 H (70-99(Fasting)) mg/dl AST 10 L (13-39) U/L B-Natriuretic Peptide (0-100) pg/ml Albumin 3.3 L (3.4-5.0) gm/dl 04/18/22 04/18/22 Range/Units 05:18 05:18 RBC (4.63-6.08) M/uL Hgb (14.0-18.0) g/dl Hct (40.1-51.0) % MCHC (32.0-36.0) g/dL RDW Std Deviation (36.4-46.3) fL RDW Coeff of Camilo (11.5-14.5) % Neut # (Auto) (1.4-6.5) K/uL Lymph # (Auto) (1.2-3.4) K/uL Immature Gran # (Auto) (0.00-0.02) K/uL PT (9.0-12.0) Seconds INR (0.9-1.1) APTT (21.0-31.0) Seconds VBG pH 7.49 H (7.36-7.41) Potassium (3.5-5.1) mmol/L Chloride (98-107) mmol/L BUN/Creatinine Ratio (10-20) Glucose (70-99(Fasting)) mg/dl AST (13-39) U/L B-Natriuretic Peptide 250 H (0-100) pg/ml Albumin (3.4-5.0) gm/dl Diagnostic Findings SINGLE VIEW CHEST CLINICAL HISTORY: Sepsis. FINDINGS: An AP, portable, upright chest radiograph is compared to chest x-ray and chest CT dated 02/26/2022. A right internal jugular central venous infusion port is in place. A 2-lead cardiac pacemaker is unchanged in position. The heart is enlarged noting atherosclerotic calcification of the thoracic aorta. The pulmonary vasculature is noncongested. Chronic interstitial thickening is similar to previous. There is a right pleural effusion with right basilar airspace consolidation. Minimal opacities are seen at the left lung base. No pneumothorax is seen. The skeletal structures are osteopenic. The bony thorax is grossly intact. Arthritic change is seen in the shoulders. IMPRESSION: 1. There is right lower lobe consolidation and a small right pleural effusion. Correlate clinically for evidence of pneumonia/aspiration pneumonitis. Radiographic follow-up to resolution is recommended. 2. Cardiomegaly and cardiac pacemaker without radiographic evidence of congestive failure CT SCAN OF THE CHEST WITHOUT IV CONTRAST CLINICAL HISTORY: Aspiration. Esophageal cancer. COMPARISON STUDY: Chest x-ray dated 04/18/2022. Chest CT dated 02/26/2022. TECHNIQUE: CT scan of the thorax was performed from the thoracic inlet to the upper abdomen. Images are reviewed in the axial, sagittal, and coronal planes. IV contrast was not administered for this examination as per the referring clinician. A dose lowering technique was utilized adhering to the principles of ALARA. CT DOSE: 376.32 mGy.cm FINDINGS: Thyroid: Atrophic and heterogeneous. Thoracic aorta: There is moderate atherosclerotic calcification of the thoracic aorta, which is normal in caliber and demonstrates standard 3-vessel arch anatomy. Heart: A right internal jugular central venous infusion port is in place. A cardiac pacemaker is present in the left chest wall. The heart is enlarged noting a small pericardial effusion. The coronary arteries are densely calcified. Lungs and pleural spaces: There are small to moderate right and trace left pleural effusions. Loculated fluid is seen along the right major fissure. There is bibasilar airspace consolidation, right significantly greater than left. Minimal patchy consolidation is also seen in the upper lobes. There are scattered calcified granulomas. Intralobular septal thickening is noted in the lower lobes. Layering secretions are seen within the trachea. A 3 cm spiculated density is again seen in the right middle lobe on image #176. Mediastinum: Mildly enlarged mediastinal lymph nodes measure up to 12 mm in short axis. Cassidy: Not well assessed without IV contrast. Axillae: There is no axillary lymphadenopathy. Upper abdomen: There is a [id number] hiatal hernia. A 3.4 cm simple cyst is noted in the left lobe of liver. Additional subcentimeter hepatic hypodensities also likely represent cysts but are too small for definitive characterization. A 12 mm cyst is noted in the right kidney. Esophagus: Postsurgical change is seen from esophagectomy with gastric pull- through procedure. The esophagus/gastric pull-through is diffusely thick walled. A stent is present in the upper esophagus at the level of the thoracic inlet. There is mild inflammation seen around the upper esophagus at the level of the stent. The esophagus/pull-through is dilated and filled with fluid to the level of the thoracic inlet. Skeletal structures: The skeletal structures are osteopenic. Degenerative change is noted in the shoulders and thoracic spine. There is mild hyperkyphosis. No lytic or blastic bony lesions are seen. IMPRESSION: 1. Airspace consolidation is seen at both lung bases, right significantly greater than left. The appearance is typical for pneumonia/aspiration pneumonitis and clinical correlation will be required. 2. Right larger than left pleural effusions. 3. Cardiomegaly and cardiac pacemaker. Intralobular septal thickening in the lower lobes may represent acute versus chronic congestive change and clinical correlation will be required. 4. Postsurgical change from esophagectomy and gastric pull-through, with an esophageal stent at the level of the thoracic inlet. There is nonspecific inflammation around the stent. Clinical correlation required. 5. The remaining esophagus and gastric pull-through appears diffusely thick- walled. Correlate clinically for evidence of gastritis/esophagitis. 6. The gastric pull-through/esophagus is distended and filled with fluid to the level the thoracic inlet. Note that this places the patient at risk for aspiration. 7. Numerous mildly enlarged mediastinal lymph nodes are nonspecific and similar to previous. 8. An approximately 3 cm indeterminate spiculated lesion in the right middle lobe is similar to previous. 9. Additional findings as above. Medications Administered ER Medications Given: NSS 1L bolus Vancomycin 1500mg IV Zosyn 4.5g IV Duoneb 3ml Acetaminophen 1000mg IV Ondansetron 4mg IV ECG Additional Comments: Atrial-sensed ventricular-paced rhythm Abnormal ECG When compared with ECG of 26-FEB-2022 12:30, Premature ventricular complexes are no longer Present Vent. rate has increased BY 23 BPM Confirmed by Bud Shi ([id number]) on 04/18/2022 10:51:23 AM Code Status & VTE Plan Code Status Full - discussed with the patient at bedside VTE Prophylaxis Plan VTE Prophylaxis will be ordered: Yes PG Care Time/CCT Total # of Minutes Spent Total Time Spent with Patient: Total time spent is greater than 50% in coordination of care (as documented) at patient's floor/unit and/or counseling patient: Coding Level of Care Code 40032 Initial Inpt Care Lvl 3 Diagnoses Aspiration pneumonia J69.0 Paroxysmal atrial fibrillation I48.0 Esophageal cancer C15.9 Malignant neoplasm of esophagus location: unspecified location Hypertension I10 Hypertension type: essential hypertension Chronic GERD K21.9 (1) Esophageal cancer Malignant neoplasm of esophagus location: unspecified location Qualified Code(s): C15.9 - Malignant neoplasm of esophagus, unspecified (2) Hypertension Hypertension type: essential hypertension Qualified Code(s): I10 - Essential (primary) hypertension
[2022-04-18] MEDS ORDERED: ONDANSETRON INJ 2 MG/ML 2 ML VIAL IV PRN (09:49)
[2022-04-18] MEDS ORDERED: ACETAMINOPHEN 325 MG TAB PO PRN (09:49)
--- NOTE | 2022-04-18 10:51 | Electrocardiogram Report ---
Test Reason : Blood Pressure : / mmHG Vent. Rate : 112 BPM Atrial Rate : 112 BPM P-R Int : 180 ms QRS Dur : 096 ms QT Int : 334 ms P-R-T Axes : 049 -38 066 degrees QTc Int : 455 ms Atrial-sensed ventricular-paced rhythm Abnormal ECG When compared with ECG of 26-FEB-2022 12:30, Premature ventricular complexes are no longer Present Vent. rate has increased BY 23 BPM Confirmed by Bud Shi ([id number]) on 04/18/2022 10:51:23 AM Referred By: REFERRED SELF Confirmed By:Palomo Shi
[2022-04-18] MEDS: ALBUT/IPRATROP 3MG/0.5MG NEB 3 ML VIAL NEB SCH ×3 (11:28→19:22)
[2022-04-18] MEDS: PANTOprazole 40 MG in SYRINGE 0 ML IV SCH (11:28)
[2022-04-18] MEDS: POTASSIUM CHLORIDE / WTR 10 MEQ/100 ML PLCT IV SCH ×2 (11:29→12:57)
[2022-04-18] MEDS: SODIUM CHLOR 7% 4 ML NEB NEB SCH ×2 (11:53→20:02)
[2022-04-18] MEDS: AMPICILLIN/SULBACTAM SOD 3,000 MG in 0.9 % SODIUM CHLORIDE 100 ML IV SCH ×2 (14:05→19:21)
--- NOTE | 2022-04-18 14:55 | Gastrointestinal Consultation ---
Date of Consultation April 18, 2022 Assessment & Plan (1) Aspiration pneumonia: (2) Stenosis of esophagus: Plan We were able to review the imaging w Dr. Evan Lau (advanced endoscopist), who feels that, most likely there is some food debris clogging the axios stent which goes from the existing portion of the esophagus to the stomach. He recommends transfer to [place], likely for stent replacement/revision. We spoke with Rand Marquez in [place] who agreed with this indication for transfer to [place]. Discussed by Barnard Text with Dr. Ochoa here at [facility]. EGD is contraindicated today while the esophagus is dilated/fluid filled. Keep NPO Tx aspiration pneumonia GI will sign off. Please notify us if new/worsening GI issues arise while awaiting transfer. Supervising Physician Co-Signing Physician Notes Wong Solano is a 76 y/o M with hx of esophageal cancer s/p total esophagectomy with gastric pull through in 2015. Due to a severe esophagogastric anastomotic stricture, he underwent placement of an axios stent in September in [place]. He did well, until yesterday when he started with nausea and vomiting. On arrival at [facility] ED, imaging and symptoms were consistent with aspiration pneumonia and gastric pull-through/esophagus is distended and filled with fluid to the level the thoracic inlet.Spoke with Dr. Lau (advanced endoscopy) who feels the axios stent needs revised and he will need to go to [place] for this year. Spoke with GI at [place] who are agreeable for the patient to be transferred there for further evaluation/management. Physical Exam: General: AAOx3, resting comfortably in bed Eyes: sclera anicteric lungs: wheezing Cardiac: RRR, no murmurs Abdomen: non-tender, non-distended, no guarding Extremities: no edema Plan: -transfer to [place] for potential axios stent revision/replacement -remain NPO -aspiration precautions Gabriela Palma DO Gastroenterology and Hepatology I personally saw and evaluated the patient on 04/18. I agree with the above plan and recommendations by SOHA Nixon. History of Present Illness Reason for Consultation: Esophageal stent, aspirations Requesting Physician: Dr. Ochoa Attending Physician: True Ochoa MD History of Present Illness Mr. Wong Barton is a 76-year-old male patient of Dr.Paul Khloe anderson a hx of esophageal adenocarcimona S/P esophagectomy and gastric pull through in [address] Coyle's most recent note: --Lower esophageal adenocarcinoma,S/P neoadjuvant combined chemotherapy with oxaliplatin and Xeloda combination with radiation treatment, received only 2 cycles of oxaliplatin (could not tolerate more chemotherapy, 05/25/2015 and 06/08/2015), S/P resection on 09/09/2015, final pathology-->T2, residual 7 mm tumor, 14 lymph nodes negative for metastatic disease. ( HER2 Adela negative ) - GI stromal tumor involving the esophagus/stomach, 2.5 cm, low-grade, Ki-67 less than 5% (09/09/2015) Due to severe esophagogastric anastomotic stricture, he underwent placement of an axios stent in September in [place]. He did well, until yesterday when he started with nausea and vomiting. On arrival at [facility] ED, imaging and symptoms were consistent with aspiration pneumonia and the esophagus appears dilated above the stent. Allergies Allergy/AdvReac Type Severity Reaction Status Date / Time No Known Allergies Allergy Unknown Verified 04/13/22 09:01 Home Medications Medication Instructions Recorded Confirmed Type cyanocobalamin (vitamin B-12) 100 100 mcg PO DAILY 11/28/18 04/18/22 History mcg tablet pseudoephedrine-DM 30 mg-15 mg/5 5 ml PO Q6 PRN Cough 01/19/21 04/18/22 History mL oral liquid apixaban 5 mg tablet (Eliquis) 5 mg PO BID 03/30/21 04/18/22 History tramadol 50 mg tablet 50 mg PO Q8H PRN Pain 09/28/21 04/18/22 History ondansetron HCl 8 mg tablet 8 mg PO Q8H PRN NAUSEA/VOMITING 10/21/21 04/18/22 History prochlorperazine maleate 10 mg 10 mg PO Q6H PRN NAUSEA/VOMITING 10/21/21 04/18/22 History tablet (Compazine) levothyroxine 100 mcg tablet 100 mcg PO DAILY #90 tabs 12/17/21 04/18/22 Rx sucralfate 100 mg/mL oral 10 ml PO QID #420 mL 02/26/22 04/18/22 Rx suspension (Carafate) torsemide 10 mg tablet 10 mg PO QAM #10 tabs 03/07/22 04/18/22 Rx famotidine 40 mg tablet 40 mg PO HS 04/18/22 04/18/22 History Patient History Medical History Ankylosing spondylitis Arthritis Atrial fibrillation Chronic GERD Chronic osteoarthritis Elevated prostate specific antigen (PSA) Elevated prostate specific antigen (PSA) Enlarged prostate with lower urinary tract symptoms (LUTS) Esophageal cancer (04/07/15) Recurrence noted 06/02/2020 Fatigue Gastroparesis History of chemotherapy Oxaliplatin + Xeloda (started 05/25/15) History of radiation therapy 05/25/15 - 07/01/15 (Concurrent with chemo) received 5040cGy @ [facility] Hypertension Hypothyroidism Impaired fasting glucose Incomplete bladder emptying Obesity DEB (obstructive sleep apnea) Pacemaker Palpitations Port-A-Cath in place Right Restrictive lung disease Shortness of breath on exertion Sinus bradycardia Spinal stenosis Surgical History H/O colonoscopy H/O esophagectomy (09/09/15) Robotic-assisted minimally invasive Brayan Abram [facility] Mart[facility]Araceli) History of endoscopy (06/02/20) Upper EUS with FNA of pariesophageal lymph nodes History of hernia repair inguinal History of lymph node biopsy Family History Father , Passed age 67 of ND Myocardial infarction Mother , Passed age 52 of unknown cancer mets Diabetes Brother , Passed age 85 of unknown Alzheimer disease Myocardial infarction Sister No problems noted. Sister , Passed in 50's of Lymphoma No problems noted. Sister , Passed in 90's of natural causes No problems noted. Daughter Colon cancer, Onset Age: 46 Currently being treated Denies family history of Ovarian cancer Prostate cancer Breast cancer Lung cancer Stroke Social History Smoking Status: Never smoker Tobacco Type: Cigarettes packs per day: 1; Second Hand Exposure: Yes (Father smoked in home); Hx Alcohol Use: No Hx Substance Use: No Preferred Language: Macedonian Communication Ability: Effective Visual Impairment: Limited Hearing Ability: Hard of Hearing Lug Loader Required: No Beliefs That Will Affect Care: None marital status: Current Living Situation: Spouse current occupational status: retired current occupation: Retired [employer] How many Children do You have: 1 Feels Safe at Home: Yes Childhood Exposure to Second-Hand Smoke: Yes (Father smoked in home ) caffeine: Yes (1-2 cups of coffee/day ) during the past year weight has: remained stable Dental Care, Regularly: No Physical Activity Frequency: Does not Exercise Seatbelt Use: always Sunscreen Use: Yes Assistive Devices: None Review of Systems Review of Systems: ROS: Gen: + weakness, no fevers; ongoing weight loss Eyes: No eye redness, or pain, no recent vision changes Resp: chronically hoarse voice, some SOB, + cough since yesterday Cardio: No palpitations/irregular beats, no chest pain GI: No abdominal pain, ++ nausea/vomiting : Denies pain on urination Skin: No jaundice, itching or new rashes Physical Exam Constitutional: well developed, + ill appearing (chronically) and + combative Eyes: PERRL, conjunctivae normal, anicteric sclerae ENMT: external ear and nose normal, oropharynx normal Neck: trachea midline, no thyromegaly Respiratory: mild wheeze throughout, few crackles at both bases, diminished sounds at both bases Cardiovascular: Rate/Rhythm: regular rate and regular rhythm Heart Sounds: no murmur 1/2 + bilat lower leg edema Gastrointestinal (Abdomen): Inspection/Auscultation: abdomen normal to inspection and normal bowel sounds; abdomen not distended Skin: normal turgor and + pallor; no rashes and no jaundice Neurologic: PERRL, EOMI, accommodation nl, no face palsy, no dysarthria Psychiatric: A+Ox3, euthymic affect Lymphatic: no cervical or axillary lymphadenopathy Results & Data ([facility]) Vital Signs (Past 12 Hours) Vital Signs Temp Pulse Pulse Resp BP BP Pulse Ox 04/18/22 13:30 81 16 106/54 L 95 04/18/22 13:00 78 17 112/56 L 95 04/18/22 12:31 80 18 111/60 95 04/18/22 12:00 87 18 126/72 100 04/18/22 11:30 67 18 114/64 95 04/18/22 11:53 85 14 04/18/22 11:00 80 17 113/58 L 95 04/18/22 10:30 88 19 104/67 94 04/18/22 10:01 85 15 131/81 94 04/18/22 09:30 84 14 116/71 96 04/18/22 09:00 64 19 109/54 L 94 04/18/22 08:30 78 19 108/56 L 93 04/18/22 08:00 74 20 106/53 L 94 04/18/22 07:30 81 12 109/65 94 04/18/22 06:38 105 H 20 114/66 95 04/18/22 04:37 101 H 12 95 04/18/22 04:32 37.8 C H 120 H 20 133/95 95 O2 Del Method O2 Flow Rate 04/18/22 13:30 Room Air 04/18/22 13:00 Room Air 04/18/22 12:31 Room Air 04/18/22 12:00 Room Air 04/18/22 11:30 Room Air 04/18/22 11:53 04/18/22 11:00 Room Air 04/18/22 10:30 Room Air 04/18/22 10:01 Room Air 04/18/22 09:30 Room Air 04/18/22 09:00 Room Air 04/18/22 08:30 Room Air 04/18/22 08:00 Room Air 04/18/22 07:30 Room Air 04/18/22 06:38 Room Air 04/18/22 04:37 Room Air 04/18/22 04:32 Nasal Cannula 5 Laboratory Results WBC 8, Hgb 9.4, HCT 30, PLT S201, PT 13, INR 1.2, NA 143, K3.1, CL 108, CO2 PT 13, INR 1.2, BUN 108, CR 0.87, glucose 136 26,136 LFTs normal. UA clean Diagnostic Findings CT chest 04/18/22: 1. Airspace consolidation is seen at both lung bases, right significantly greater than left. The appearance is typical for pneumonia/aspiration pneumonitis and clinical correlation will be required. 2. Right larger than left pleural effusions. 3. Cardiomegaly and cardiac pacemaker. Intralobular septal thickening in the lower lobes may represent acute versus chronic congestive change and clinical correlation will be required. 4. Postsurgical change from esophagectomy and gastric pull-through, with an esophageal stent at the level of the thoracic inlet. There is nonspecific i nflammation around the stent. Clinical correlation required. 5. The remaining esophagus and gastric pull-through appears diffusely thick- walled. Correlate clinically for evidence of gastritis/esophagitis. 6. The gastric pull-through/esophagus is distended and filled with fluid to the level the thoracic inlet. Note that this places the patient at risk for aspiration. 7. Numerous mildly enlarged mediastinal lymph nodes are nonspecific and similar to previous. 8. An approximately 3 cm indeterminate spiculated lesion in the right middle lobe is similar to previous. 9. Additional findings as above.
[2022-04-18] MEDS ORDERED: ACETAMINOPHEN 1,000 MG/100 ML VIAL IV PRN (19:47)
[2022-04-18] MEDS: LACTATED RINGER'S 1,000 ML IV SCH (20:08)
[2022-04-19] MEDS: AMPICILLIN/SULBACTAM SOD 3,000 MG in 0.9 % SODIUM CHLORIDE 100 ML IV SCH ×4 (00:19→18:28)
[2022-04-19] MEDS: SODIUM CHLOR 7% 4 ML NEB NEB SCH ×2 (07:07→19:22)
[2022-04-19] MEDS: ALBUT/IPRATROP 3MG/0.5MG NEB 3 ML VIAL NEB SCH ×4 (07:07→19:20)
[2022-04-19 07:41] LABS: Basophils # (auto) 0.01 K/uL (0-0.2); Basophils % (auto) 0.2 %; Eosinophils # (auto) 0.09 K/uL (0-0.50); Eosinophils % (auto) 1.5 %; Hematocrit (blood only) 26.8 % (40.1-51.0); Hemoglobin 8.2 g/dl (14.0-18.0); Immature Granulocytes # (auto) 0.04 K/uL (0.00-0.02); Immature Granulocytes % (auto) 0.6 %; Lymphocytes # (auto) 0.43 K/uL (1.2-3.4); Lymphocytes % (auto) 6.9 %; Mean Corpuscular Hemoglobin 28.1 pg (25.0-34.0); Mean Corpuscular Hgb Conc 30.6 g/dL (32.0-36.0); Mean Corpuscular Volume 91.8 fL (80.0-100.0); Mean Platelet Volume 9.9 fL (9.4-12.4); Monocytes # (auto) 0.37 K/uL (0.24-0.82); Neutrophils # (auto) 5.25 K/uL (1.4-6.5); Neutrophils % (auto) 84.8 %; Platelet Count 167 K/uL (130-400); RDW Coefficient of Variation 17.8 % (11.5-14.5); RDW Standard Deviation 58.4 fL (36.4-46.3); Red Blood Count 2.92 M/uL (4.63-6.08); White Blood Count 6.19 K/ul (4.8-10.8)
[2022-04-19 08:00] LABS: BUN Creatinine Ratio 21.7 (10-20); Calcium 8.4 mg/dl (8.5-10.1); Creatinine Clr Calc Pharmacy 74.1 ml/min; Est GFR (African American) 98.4 ml/min; Est GFR (Non-African American) 84.9 ml/min; Potassium 3.7 mmol/L (3.5-5.1)
[2022-04-19] MEDS: LACTATED RINGER'S 1,000 ML IV SCH ×2 (09:33→19:50)
--- NOTE | 2022-04-19 10:23 | Hospitalist Progress Note ---
Date of Service April 19, 2022 Assessment & Plan (1) Aspiration pneumonia: Plan: Biofire PCR negative. History and CT consistent with aspiration pneumonia. MRSA nose swab negative Unasyn 3 g IV every 6 hourly Duonebs QID Hypertonic saline NEB BID Flutter valve, incentive spirometer NPO, LR @ 80ml/hr Appreciate gastroenterology consult. Patient accepted to transfer for [facility]. (2) Paroxysmal atrial fibrillation: Plan: Hold Eliquis pending GI evaluation for possible intervention. If he remains here past tomorrow will consider heparin IV. (3) Esophageal cancer: (4) Hypertension: Plan: Holding torsemide given NPO status (5) Chronic GERD: Plan: Switch famotidine for IV pantoprazole 40mg IV daily Carafate on hold due to NPO Plan VTE Prophylaxis - deferred for transfer due to possible need of intervention when he gets to [place] Diet - NPO Disposition - admit to med/tele Admission and Anticipated Discharge Date Admission Date: April 18, 2022 Subjective No new acute issues or questions. He is currently n.p.o. awaiting transfer to [place]. On Unasyn for coverage of aspiration pneumonia. Review of Systems Review of Systems: All systems reviewed & are unremarkable except as noted in Subjective Physical Exam Constitutional: WD/WN, vitals as above Respiratory: normal respiratory effort Auscultation: + diminished lung sounds (bibasal), + rhonchi (bilateral anteriorly) and + wheezes (expiratory) Cardiovascular: Rate/Rhythm: regular rate and regular rhythm Heart Sounds: no murmur Extremities: + pedal edema (3+ b/l equal) Gastrointestinal (Abdomen): normal bowel sounds, soft, nontender, no hepatosplenomegaly Musculoskeletal: no cyanosis or clubbing, extremities motor strength 5/5 Skin: no rashes, warm and dry Neurologic: moves all extremities and awake; not confused Psychiatric: A+Ox3, euthymic affect Results & Data Results & Data ([facility]) Vital Signs (Past 12 Hours) Vital Signs Temp Pulse Pulse Resp BP BP Pulse Ox 04/19/22 10:14 87 L 04/19/22 07:08 79 20 90 04/19/22 06:24 37.0 C 65 20 122/68 94 04/19/22 04:01 85 14 132/68 94 04/19/22 00:00 65 18 116/66 92 O2 Del Method 11/29/22 10:14 Room Air 04/19/22 07:08 Room Air 04/19/22 06:24 Room Air 04/19/22 04:01 Room Air 04/19/22 00:00 Room Air PG Care Time/CCT Total # of Minutes Spent Total Time Spent with Patient: Total time spent is greater than 50% in coordination of care (as documented) at patient's floor/unit and/or counseling patient: Coding Level of Care Code 68193 Subseq Hosp Care Lvl 2 Diagnoses Aspiration pneumonia J69.0 Paroxysmal atrial fibrillation I48.0 Esophageal cancer C15.9 Hypertension I10 Hypertension type: essential hypertension Chronic GERD K21.9 (1) Hypertension Hypertension type: essential hypertension Qualified Code(s): I10 - Essential (primary) hypertension
[2022-04-19] MEDS: PANTOprazole 40 MG in SYRINGE 0 ML IV SCH (13:05)
[2022-04-20] MEDS: AMPICILLIN/SULBACTAM SOD 3,000 MG in 0.9 % SODIUM CHLORIDE 100 ML IV SCH ×4 (01:02→19:33)
[2022-04-20] MEDS: ALBUT/IPRATROP 3MG/0.5MG NEB 3 ML VIAL NEB SCH ×4 (08:21→21:01)
[2022-04-20] MEDS: SODIUM CHLOR 7% 4 ML NEB NEB SCH ×2 (08:22→21:02)
[2022-04-20 09:20] LABS: Basophils # (auto) 0.01 K/uL (0-0.2); Basophils % (auto) 0.2 %; Eosinophils % (auto) 1.9 %; Hematocrit (blood only) 28.1 % (40.1-51.0); Hemoglobin 8.5 g/dl (14.0-18.0); Immature Granulocytes # (auto) 0.04 K/uL (0.00-0.02); Immature Granulocytes % (auto) 0.8 %; Lymphocytes # (auto) 0.53 K/uL (1.2-3.4); Lymphocytes % (auto) 10.3 %; Mean Corpuscular Hemoglobin 28.2 pg (25.0-34.0); Mean Corpuscular Hgb Conc 30.2 g/dL (32.0-36.0); Mean Corpuscular Volume 93.4 fL (80.0-100.0); Mean Platelet Volume 10.2 fL (9.4-12.4); Monocytes # (auto) 0.44 K/uL (0.24-0.82); Monocytes % (auto) 8.5 %; Neutrophils # (auto) 4.05 K/uL (1.4-6.5); Neutrophils % (auto) 78.3 %; Platelet Count 159 K/uL (130-400); RDW Coefficient of Variation 17.5 % (11.5-14.5); RDW Standard Deviation 59.7 fL (36.4-46.3); Red Blood Count 3.01 M/uL (4.63-6.08); White Blood Count 5.17 K/ul (4.8-10.8)
[2022-04-20 09:39] LABS: BUN Creatinine Ratio 20.3 (10-20); Calcium 8.6 mg/dl (8.5-10.1); Creatinine Clr Calc Pharmacy 89.2 ml/min; Est GFR (African American) 106.1 ml/min; Est GFR (Non-African American) 91.6 ml/min; Potassium 3.3 mmol/L (3.5-5.1)
[2022-04-20] MEDS: LACTATED RINGER'S 1,000 ML IV SCH ×2 (10:47→21:34)
--- NOTE | 2022-04-20 12:12 | Hospitalist Progress Note ---
Date of Service April 20, 2022 Assessment & Plan (1) Aspiration pneumonia: Plan: History and CT consistent with aspiration pneumonia/pneumonitis. Biofire PCR negative. MRSA nose swab negative Unasyn 3 g IV every 6 hourly Duonebs QID Hypertonic saline NEB BID Flutter valve, incentive spirometer NPO, LR @ 80ml/hr, will place TPN orders now to start tomorrow if he remains here. Appreciate gastroenterology consult. Patient accepted to transfer for [facility]. (2) Paroxysmal atrial fibrillation: Plan: Hold Eliquis pending GI evaluation for possible intervention. Will start on IV heparin here as unclear when he will be transferred at this time. (3) Esophageal cancer: (4) Hypertension: Plan: Holding torsemide given NPO status (5) Chronic GERD: Plan: Switched famotidine for IV pantoprazole 40mg IV daily Carafate on hold due to NPO Plan VTE Prophylaxis - IV heparin without bolus as above Diet - NPO Disposition - med/surg, no need for telemetry Admission and Anticipated Discharge Date Admission Date: April 18, 2022 Subjective Reports improvement in his shortness of breath. Coughing less. Discussed nutrition and if he stays in the hospital past today we will arrange for TPN to start tomorrow. Review of Systems Review of Systems: All systems reviewed & are unremarkable except as noted in Subjective Physical Exam Constitutional: WD/WN, vitals as above Respiratory: normal respiratory effort Auscultation: + diminished lung sounds (bibasal) and + crackles (Bibasal); no rhonchi and no wheezes Cardiovascular: Rate/Rhythm: regular rate and regular rhythm Heart Sounds: no murmur Extremities: + pedal edema (3+ b/l equal) Gastrointestinal (Abdomen): normal bowel sounds, soft, nontender, no hepatosplenomegaly Skin: no rashes, warm and dry Neurologic: moves all extremities and awake; not confused Psychiatric: A+Ox3, euthymic affect Results & Data Results & Data ([facility]) Vital Signs (Past 12 Hours) Vital Signs Temp Pulse Pulse Resp BP BP Pulse Ox 04/20/22 11:00 138/70 04/20/22 11:00 70 20 99 04/20/22 10:00 78 93 04/20/22 10:00 138/76 04/20/22 09:00 94 H 96 04/20/22 09:00 157/80 H 04/20/22 11:00 04/20/22 11:00 66 18 93 04/20/22 10:00 04/20/22 08:30 89 100 04/20/22 08:00 83 98 04/20/22 08:00 148/94 H 04/20/22 07:30 69 98 04/20/22 07:00 80 98 04/20/22 07:00 162/90 H 04/20/22 06:30 70 98 04/20/22 06:00 69 97 04/20/22 06:00 148/90 H 04/20/22 05:30 94 H 97 04/20/22 05:00 63 99 04/20/22 05:00 152/81 H 04/20/22 04:30 72 98 04/20/22 04:00 63 98 04/20/22 04:00 141/73 H 04/20/22 03:30 65 98 04/20/22 03:00 78 0 L 92 04/20/22 03:00 152/82 H 04/20/22 02:30 77 0 L 92 04/20/22 02:00 70 0 L 97 04/20/22 02:00 139/77 04/20/22 01:30 107 H 17 95 04/20/22 01:00 70 0 L 94 04/20/22 00:30 67 96 04/20/22 08:22 75 16 99 04/20/22 07:56 69 18 162/90 H 96 04/20/22 05:04 36.8 C 76 14 152/81 H 97 Pulse Ox O2 Del Method O2 Del Method O2 Flow Rate 04/20/22 11:00 04/20/22 11:00 04/20/22 10:00 04/20/22 10:00 04/20/22 09:00 04/20/22 09:00 04/20/22 11:00 100 Room Air 04/20/22 11:00 Room Air 04/20/22 10:00 Room Air 04/20/22 08:30 04/20/22 08:00 04/20/22 08:00 04/20/22 07:30 04/20/22 07:00 04/20/22 07:00 04/20/22 06:30 04/20/22 06:00 04/20/22 06:00 04/20/22 05:30 04/20/22 05:00 04/20/22 05:00 04/20/22 04:30 04/20/22 04:00 04/20/22 04:00 04/20/22 03:30 04/20/22 03:00 04/20/22 03:00 04/20/22 02:30 04/20/22 02:00 04/20/22 02:00 04/20/22 01:30 04/20/22 01:00 04/20/22 00:30 04/20/22 08:22 Nasal Cannula 2 04/20/22 07:56 Nasal Cannula 2 04/20/22 05:04 Nasal Cannula 2 PG Care Time/CCT Total # of Minutes Spent Total Time Spent with Patient: Total time spent is greater than 50% in coordination of care (as documented) at patient's floor/unit and/or counseling patient: Coding Level of Care Code 89723 Subseq Hosp Care Lvl 2 Diagnoses Aspiration pneumonia J69.0 Paroxysmal atrial fibrillation I48.0 Esophageal cancer C15.9 Hypertension I10 Hypertension type: essential hypertension Chronic GERD K21.9 (1) Hypertension Hypertension type: essential hypertension Qualified Code(s): I10 - Essential (primary) hypertension
[2022-04-20] MEDS ORDERED: Heparin IV Adult Wt-Based Standard *NO* Bolus Protocol IV STA (12:54)
[2022-04-20 13:32] LABS: INR 1.2 (0.9-1.1); Partial Thromboplastin Ratio 1.4; Partial Thromboplastin Time 38.7 Seconds (21.0-31.0); Prothrombin Time 12.5 Seconds (9.0-12.0)
[2022-04-20] MEDS ORDERED: TPN/PPN CONSULT PHARMACY PRN (13:36)
[2022-04-20 13:41] LABS: Bilirubin,Total 0.7 mg/dl (0.2-1.0); Phosphorus 2.3 mg/dl (2.5-4.9)
[2022-04-20] MEDS: PANTOprazole 40 MG in SYRINGE 0 ML IV SCH (14:37)
[2022-04-20] MEDS: POTASSIUM CHLORIDE / WTR 10 MEQ/100 ML PLCT IV SCH ×2 (14:39→15:51)
[2022-04-20] MEDS: HEPARIN SODIUM/DEXTROSE 25,000 UNITS/500 ML BAG IV SCH (15:52)
[2022-04-20 23:37] LABS: Partial Thromboplastin Ratio 3.8
[2022-04-21 00:11] LABS: Partial Thromboplastin Time 104.3 Seconds (21.0-31.0)
[2022-04-21] MEDS: AMPICILLIN/SULBACTAM SOD 3,000 MG in 0.9 % SODIUM CHLORIDE 100 ML IV SCH ×4 (00:39→20:22)
[2022-04-21 02:31] LABS: A calco-baum cmplx NotReported Not Detected (NotDetected); Bact fragilis Not Reported Not Detected (NotDetected); C auris Not Reported Not Detected (NotDetected); Calbicans Not Reported Not Detected (NotDetected); Candida glabrata Not Reported Not Detected (NotDetected); Candida krusei Not Reported Not Detected (NotDetected); Cneoformans/gatti Not Reported Not Detected (NotDetected); Cparapsilosis Not Reported Not Detected (NotDetected); Ctropicalis Not Reported Not Detected (NotDetected); E cloacae compx Not Reported Not Detected (NotDetected); Efaecalis Not Reported Not Detected (NotDetected); Efaecium Not Reported Not Detected (NotDetected); Enterobacterales Not Reported Not Detected (NotDetected); Escherichia coli Not Reported Not Detected (NotDetected); H influenzae Not Reported Not Detected (NotDetected); K aerogenes Not Reported Not Detected (NotDetected); Koxytoca Not Reported Not Detected (NotDetected); Kpneumoniae grp Not Reported Not Detected (NotDetected); Lmonocyt Not Reported Not Detected (NotDetected); N meningitidis Not Reported Not Detected (NotDetected); P aeruginosa Not Reported Not Detected (NotDetected); Proteus spp Not Reported Not Detected (NotDetected); Salmonella spp Not Reported Not Detected (NotDetected); Smarcescens Not Reported Not Detected (NotDetected); Staph lugdunensis Not Reported Not Detected (NotDetected); Staph spp. Not Reported Not Detected (NotDetected); Staphaureus Not Reported Not Detected (NotDetected); Staphepi Not Reported Not Detected (NotDetected); Stenmaltophilia Not Reported Not Detected (NotDetected); Strep agal(GrpB) Not Reported Not Detected (NotDetected); Strep pneum Not Reported Not Detected (NotDetected); Strep pyog (GrpA) Not Reported Not Detected (NotDetected); Strep spp Not Reported Not Detected (NotDetected)
[2022-04-21] MEDS: ALBUT/IPRATROP 3MG/0.5MG NEB 3 ML VIAL NEB SCH ×2 (07:33→11:35)
[2022-04-21] MEDS: SODIUM CHLOR 7% 4 ML NEB NEB SCH (07:33)
[2022-04-21 08:52] LABS: Basophils # (auto) 0.01 K/uL (0-0.2); Basophils % (auto) 0.2 %; Eosinophils # (auto) 0.08 K/uL (0-0.50); Eosinophils % (auto) 1.9 %; Hematocrit (blood only) 24.8 % (40.1-51.0); Hemoglobin 7.7 g/dl (14.0-18.0); Immature Granulocytes # (auto) 0.07 K/uL (0.00-0.02); Immature Granulocytes % (auto) 1.7 %; Lymphocytes # (auto) 0.26 K/uL (1.2-3.4); Lymphocytes % (auto) 6.3 %; Mean Corpuscular Hemoglobin 28.1 pg (25.0-34.0); Mean Corpuscular Volume 90.5 fL (80.0-100.0); Mean Platelet Volume 9.9 fL (9.4-12.4); Monocytes # (auto) 0.44 K/uL (0.24-0.82); Monocytes % (auto) 10.7 %; Neutrophils # (auto) 3.26 K/uL (1.4-6.5); Neutrophils % (auto) 79.2 %; Platelet Count 170 K/uL (130-400); RDW Coefficient of Variation 17.3 % (11.5-14.5); RDW Standard Deviation 56.6 fL (36.4-46.3); Red Blood Count 2.74 M/uL (4.63-6.08); White Blood Count 4.12 K/ul (4.8-10.8)
[2022-04-21 09:14] LABS: BUN Creatinine Ratio 16.4 (10-20); Creatinine Clr Calc Pharmacy 91.8 ml/min; Est GFR (African American) 107.4 ml/min; Est GFR (Non-African American) 92.7 ml/min; Magnesium 1.8 mg/dl (1.7-2.4); Phosphorus 2.1 mg/dl (2.5-4.9)
[2022-04-21 09:16] LABS: Ovalocytes 1+
[2022-04-21 09:22] LABS: Partial Thromboplastin Time 83.4 Seconds (21.0-31.0)
[2022-04-21] MEDS ORDERED: POTASSIUM PHOSPHATE 15 MMOL in SODIUM CHLORIDE 0.9% 250 ML IV STA (10:33)
[2022-04-21] MEDS: LACTATED RINGER'S 1,000 ML IV SCH (10:38)
[2022-04-21] MEDS ORDERED: DEXTROSE 10% 1,000 ML IV PRN (11:18)
[2022-04-21] MEDS: PANTOprazole 40 MG in SYRINGE 0 ML IV SCH (11:46)
--- NOTE | 2022-04-21 11:48 | Pharmacy Report ---
Pharmacy PN Initial Consult - Date of Service April 21, 2022 - Scope Pharmacy has been consulted to manage parenteral nutrition orders and order appropriate labs. As part of the Nutrition Support Team guidelines, pharmacy will work in conjunction with dietary when determining the patients caloric needs. - Subjective The patient is a 76 year old M admitted on 04/18/22 07:26 for ASPIRATION PNA. Patient is to receive parenteral nutrition for prolonged NPO. Pertinent PMH: Esophageal cancer s/p total esophagectomy with gastric pull through. Now s/p axios stent-- pending transfer to [facility] for stent revision - Objective Height: 5 ft 6 in Weight: 80.1 kg Intake & Output (Last 24Hrs): Intake & Output 04/19/22 04/20/22 04/21/22 04/22/22 06:59 06:59 06:59 06:59 Intake Total 1632 / 1632 2146.667 / 2146.667 2840.75 / 2948.75 1281.25 / 1281.25 Output Total 800 / 800 400 / 400 300 / 300 Balance 1632 / 1632 1346.667 / 9526.551 4822.75 / 2548.75 981.25 / 981.25 Weight 80.1 kg 80.1 kg Laboratory Data (Last 24 Hrs):: 04/20/22 04/21/22 09:06 08:14 Sodium 143 Potassium 3.0 L Chloride 109 H Carbon Dioxide 26 BUN 11 Creatinine 0.67 Glucose 82 Calcium 8.0 L Phosphorus 2.3 L 2.1 L Magnesium 2.0 1.8 Total Bilirubin 0.7 AST 8 L ALT 7 Alkaline Phosphatase 52 Triglycerides 69 Nutrition Assessment:: Please refer to the Notes section of the EMR for the most recent bead maker note. - Assessment Mr. Solano is a 76 YOM with esophageal cancer who underwent placement of axios stent in September d/t severe esophagogastric anastomotic stricture. Currently admitted to our facility awaiting transfer to a tertiary care facility for axios stent revision. Stent likely clogged with food and has been strictly NPO. Pharmacy consulted to assist with initiation of parenteral nutrition. - Plan For day 1 of PN administration, the following will be ordered: Macronutrients Amino acids 77 grams/day Dextrose 134 grams/day Lipids 50 grams/day Micronutrients Sodium chloride 20 mEq Sodium acetate 60 mEq Potassium phosphate 30 mMol Potassium acetate 40 mEq Magnesium sulfate 8.12 mEq Multivitamins 10 mL Trace Elements 10 mL Additional additives: Thiamine 100mg Total volume 1042 mL to be infused over 24 hrs will provide 1264 kcal/day Final osmolarity 1710 mOsm/L (maximum for PPN is 900 mOsm/L) Labs to be ordered per PN order protocol Pharmacy will follow and adjust parenteral nutrition orders on a daily basis. Thank you.
[2022-04-21] MEDS ORDERED: SODIUM CHLOR 7% 4 ML NEB NEB PRN (11:52)
[2022-04-21] MEDS ORDERED: ALBUT/IPRATROP 3MG/0.5MG NEB 3 ML VIAL NEB PRN (11:52)
[2022-04-21] MEDS ORDERED: POTASSIUM CHLORIDE / WTR 10 MEQ/100 ML PLCT IV SCH (14:00)
[2022-04-21] MEDS: HEPARIN SODIUM/DEXTROSE 25,000 UNITS/500 ML BAG IV SCH (15:38)
[2022-04-21] MEDS ORDERED: [UNRECOGNIZED DRUG - REMARK] ONE (15:59)
[2022-04-21] MEDS ORDERED: AMINO ACID 8% IV SCH (16:00)
[2022-04-21] MEDS ORDERED: [UNRECOGNIZED DRUG - OTHER] IV SCH (16:00)
[2022-04-21] MEDS ORDERED: CENTRAL TPN IV SCH (16:00)
[2022-04-21] MEDS ORDERED: CLINOLIPID 20% IV FAT EMULSION 250 ML IV SCH (16:00)
[2022-04-21 16:20] LABS: Partial Thromboplastin Ratio 2.8
[2022-04-21] MEDS: POTASSIUM CHLORIDE / WTR 10 MEQ/100 ML PLCT IV SCH ×2 (17:53→19:02)
[2022-04-21 21:08] VITALS: TEMP 99; O2SAT 95
[2022-04-21 21:52] VITALS: BP 163/78; PULSE 69
== END 2022-04-21 22:12 | disposition short-term general hospital (02) | DRG 178 ==
LOC: ED 04:09 → SUATTDRO 07:26 → EDINP 07:26 → 3E 04-21 00:05